=== PATIENT | male | born 1960 | race African-American/Black ===

== ENCOUNTER 2017-01-25 23:12 | Emergency (ER) | payer OTHER ==
[2017-01-25 23:21] VITALS: BP 136/72; PULSE 76; TEMP 97.6; BMI 27.4
--- NOTE | 2017-01-25 23:36 | PDOC ---
History of Present Illness - General Chief Complaint: Cold Symptoms Stated Complaint: CONGESTION Time Seen by Provider: 01/25/17 23:30 History Source: Patient Exam Limitations: No Limitations - History of Present Illness Initial Comments: 01/25/17 23:32 56yo Male patient presents to ED c/o cough and congestion x 2 days. Patient reports he also ran out of his medications. Lasix. Patient denies fever, CP, Back pain, n/v/d, diff breathing or any other complaints at this time. Timing/Duration: reports: just prior to arrival Severity: reports: mild Possible Cause: Yes: illness exposure Modifying Factors: worse with: activity, albuterol inhaler, albuterol nebulizer , antibiotics, coughing, lying down, oxygen, rest, other Associated Symptoms: denies: denies symptoms, chest pain/soreness, cough, dizziness, earache, facial pain, fever/chills, headache, lightheadedness, muscle aches, nasal congestion, nasal drainage, shortness of breath, sinus infection, sore throat, wheezing, other Aspirin Received prior to arrival: No: no aspirin today, unknown, 81 mg x 1, 81 mg x 2, 81 mg x 3, 81 mg x 4, 325 mg x 1, provided at home, provided by EMS, provided by ED ASA Contraindications(Core Measure): No: Allergy, Other, Active Blding w/i 24 hrs., Plavix, Receiving Warfarin Past History - Travel Traveled outside of the country in the last 30 days: No Close contact w/someone who was outside of country & ill: No - Past Medical History Allergies/Adverse Reactions: Allergies Allergy/AdvReac Type Severity Reaction Status Date / Time Iodinated Contrast Media - Allergy Verified 01/25/17 23:20 Oral and [Iodinated Contrast Media - IV Dye] Home Medications: Ambulatory Orders Nifedipine 30 mg PO ASDIR 03/22/14 Morphine Sulfate 15 mg PO BID 03/19/15 Furosemide [Lasix -] 60 mg PO DAILY #60 tablet 01/25/17 Oxycodone HCl/Acetaminophen [Percocet 5-325 mg Tablet] 1 tab PO Q6H PRN #16 tablet MDD 4 tabs 01/25/17 Cancer: Yes (bladder) HTN: Yes HIV: No Suicide Attempt (Hx): No - Surgical History Orthopedic Surgery: Yes (back surgery ) - Immunization History Immunization Up to Date: Yes - Psycho/Social/Smoking Cessation Hx Anxiety: No Suicidal Ideation: No Smoking History: Never smoked Have you smoked in the past 12 months: No Number of Cigarettes Smoked Daily: 2 Information on smoking cessation initiated: No 'Breaking Loose' booklet given: 03/23/14 Hx Alcohol Use: No Drug/Substance Use Hx: No Substance Use Type: None Respiratory Specific PMHX - Complaint Specific PMHX Angina: No Bronchitis: No Pneumonia: No Pulmonary Embolus: No TB (Tuberculosis): No Review of Systems - Review of Systems Able to Perform ROS?: Yes Is the patient limited Malaysian proficient: No Constitutional: No: Chills, Fever HEENTM: Yes: Nose Congestion. No: Throat Pain, Throat Swelling, Mouth Pain Respiratory: Yes: Cough. No: Orthopnea, Shortness of Breath, Stridor, Wheezing , Productive cough, Hemoptysis Cardiac (ROS): No: Chest Pain, Edema, Lightheadedness, Palpitations, Syncope, Chest Tightness ABD/GI: No: Constipated, Diarrhea, Nausea, Vomiting : No: Dysuria, Hematuria, Incontinence All Other Systems: Reviewed and Negative *Physical Exam - Vital Signs Last Vital Signs Temp Pulse Resp BP Pulse Ox 97.6 F 76 20 136/72 98 01/25/17 23:20 01/25/17 23:20 01/25/17 23:20 01/25/17 23:20 01/25/17 23:20 - Physical Exam General Appearance: Yes: Nourished, Appropriately Dressed. No: Apparent Distress, Mild Distress, Moderate Distress, Severe Distress HEENT: positive: EOMI, BOBBY, Normal ENT Inspection, Normal Voice, Symmetrical, TMs Normal, Pharynx Normal. negative: Pharyngeal Erythema, Tonsillar Exudate, Tonsillar Erythema, Nasal Congestion, Rhinorrhea, TM Bulging, TM Dull, TM Erythema Neck: positive: Trachea midline, Normal Thyroid, Supple. negative: Stridor, Lymphadenopathy (R), Lymphadenopathy (L) Respiratory/Chest: positive: Lungs Clear, Normal Breath Sounds. negative: Respiratory Distress, Accessory Muscle Use, Labored Respiration, Rapid RR Cardiovascular: positive: Regular Rhythm, Regular Rate Gastrointestinal/Abdominal: positive: Normal Bowel Sounds, Soft. negative: Distended, Guarding, Rebound, Tenderness Musculoskeletal: positive: Normal Inspection. negative: CVA Tenderness Extremity: positive: Normal Capillary Refill, Normal Inspection, Normal Range of Motion, Pedal Edema (Mild Bilateral). negative: Swelling Integumentary: positive: Normal Color, Dry, Warm Neurologic: positive: negative checker II-XII NML intact, Fully Oriented, Alert, Normal Mood/ Affect, Normal Response, Motor Strength 5/5 *DC/Admit/Observation/Transfer Diagnosis at time of Disposition: Upper respiratory infection, viral, Medication refill - Discharge Dispostion Disposition: HOME Condition at time of disposition: Good Admit: No - Prescriptions Prescriptions: Furosemide [Lasix -] 60 mg PO DAILY #60 tablet Oxycodone HCl/Acetaminophen [Percocet 5-325 mg Tablet] 1 tab PO Q6H PRN #16 tablet MDD 4 tabs PRN Reason: Severe Pain - Patient Instructions Printed Discharge Instructions: DI for Viral Upper Respiratory Infection -- Adult Additional Instructions: Follow up with your doctor as needed. Return if any concerns for further evaluation. Print Language: BOLIVIAN
== END 2017-01-25 23:49 | disposition home or self-care (01) ==
LOC: JER 23:12
DX: J06.9 Acute upper respiratory infection, unspecified (principal); B97.89 Other viral agents as the cause of diseases classified elsewhere; Z76.0 Encounter for issue of repeat prescription; I10 Essential (primary) hypertension; Z72.0 Tobacco use; Z85.51 Personal history of malignant neoplasm of bladder
CPT/HCPCS: 99281-25

== ENCOUNTER 2017-06-03 02:18 | Inpatient (IN) | payer OTHER ==
[2017-06-03] MEDS ORDERED: SODIUM CHLORIDE 0.9% 1000 ML INFUS.BAG IV ONE (02:49)
[2017-06-03 02:57] LABS: BASOPHIL 0.7 % (0-2.0); EOSINOPHIL 0.3 % (0-4.5); MCH 25.8 pg (25.7-33.7); MEAN CELL VOLUME 80.7 fl (80-96); MEAN PLT VOLUME 8.7 fl (7.5-11.1); PLATELET COUNT 269 K/MM3 (134-434); RDW 14.2 % (11.9-15.9); WHITE BLOOD COUNT 9.1 K/mm3 (4.0-10.0)
--- NOTE | 2017-06-03 03:01 | PDOC ---
Attending Attestation - Resident Resident Name: ConstantinoJose Maria celis - HPI HPI: 06/03/17 03:00 Pt comes with a seizure witnessed by his . He seized only once in the past as per pt and . Pt uses heroin and he has been in and out of rehab. He suffers with bladder cancer. He is on no seizure meds. - Physicial Exam PE: 06/03/17 03:01 agree with resident exam - Medical Decision Making 06/03/17 03:01 CT head and labs and follow with PMD, after hydration and reassessment. 06/03/17 04:04 Patient Name: Ambrosio Garcia This is a preliminary report by imaging electronic design engineer Exam: Noncontrast CT head Images: 176 Clinical indication: Seizure. Findings : Multiple axial images were obtained of the brain without contrast. There is no mass-effect, midline shift or hemorrhage. There is no intra-axial or extra- axial fluid collection. The ventricles and basilar cisterns are within normal limits. The visualized portions of the paranasal sinuses are clear. The middle ear cavities and mastoids are clear. Impression: No mass effect or intracranial hemorrhage. No acute abnormality seen. THIS DOCUMENT HAS BEEN ELECTRONICALLY SIGNED 06/03/17 04:40 We woke up patient and spoke to him regarding his bladder cancer and the fact that his head CT is normal and that he needs to stop using heroin; pt tells me that he is on a methadone program. Pt suddenly bega seizing before us. No tonic clonic activity. Just heavy breathing, spitting and looking to his left/ leftward forced gaze. Pt will be admitted for withdrawal seizures. Hospitalist team is aware of the patient.
--- NOTE | 2017-06-03 03:12 | PDOC ---
History of Present Illness - General Chief Complaint: Seizure Stated Complaint: SEIZURE Time Seen by Provider: 06/03/17 02:26 History Source: Patient Exam Limitations: No Limitations - History of Present Illness Initial Comments: 06/03/17 03:11 The patient is a 56M with a PMH of HTN, bladder ca, and heroine abuse who presents to the ED after having a witnessed seizure at home. He states that he had a previous seizure years ago as a reaction to IV dye. He is being treated for bladder ca at [facility]. He states that he was at the clinic at home, then took some medications (tylenol, ibuprofen) d/t pain in his groin and testicles that he correlates to passing a clot in his urethra. He says that he fell asleep and then his woke up to him having a seizure. He presented via EMS. All: contrast dye Soc: heroine use yesterday, methadone clinic Past History - Past Medical History Allergies/Adverse Reactions: Allergies Allergy/AdvReac Type Severity Reaction Status Date / Time Iodinated Contrast- Oral and Allergy Verified 06/03/17 22:25 IV Dye [Iodinated Contrast Media - IV Dye] Home Medications: Ambulatory Orders Nifedipine 30 mg PO DAILY 03/22/14 Methadone [Dolophine -] 60 mg PO DAILY 06/04/17 Ciprofloxacin HCl [Cipro] 500 mg PO BID #60 tablet 06/05/17 Levetiracetam [Keppra -] 250 mg PO BID #4 tablet 06/05/17 Levetiracetam [Keppra -] 500 mg PO BID #60 tablet 06/05/17 Cancer: Yes (bladder) HTN: Yes HIV: No Suicide Attempt (Hx): No - Surgical History Orthopedic Surgery: Yes (back surgery ) - Immunization History Immunization Up to Date: Yes - Psycho/Social/Smoking Cessation Hx Anxiety: No Suicidal Ideation: No Smoking History: Current some day smoker Have you smoked in the past 12 months: Yes Number of Cigarettes Smoked Daily: 3 Information on smoking cessation initiated: No 'Breaking Loose' booklet given: 03/23/14 Hx Alcohol Use: No Drug/Substance Use Hx: No Substance Use Type: None Review of Systems - Review of Systems Able to Perform ROS?: Yes Is the patient limited Hungarian proficient: No Constitutional: No: Chills, Fever Respiratory: No: Shortness of Breath Cardiac (ROS): No: Chest Pain ABD/GI: No: Constipated, Diarrhea, Nausea, Vomiting : Yes: Dysuria, Pain, Testicular Pain Neurological: No: Headache, Numbness, Tingling, Weakness Hematologic/Lymphatic: Yes: Easy Bleeding (in urine d/t bladder ca) *Physical Exam - Vital Signs Last Vital Signs Temp Pulse Resp BP Pulse Ox 98.0 F 91 H 18 140/83 94 L 06/03/17 02:26 06/03/17 02:26 06/03/17 02:26 06/03/17 02:26 06/03/17 02:26 - Physical Exam General Appearance: Yes: Nourished, Appropriately Dressed. No: Mild Distress HEENT: positive: Normal Voice, Hearing Grossly Normal Respiratory/Chest: positive: Lungs Clear, Normal Breath Sounds. negative: Respiratory Distress, Accessory Muscle Use Cardiovascular: positive: Regular Rhythm, Regular Rate, S1, S2. negative: Diastolic Murmur, Systolic Murmur Gastrointestinal/Abdominal: positive: Tender, Flat, Soft. negative: Protuberent , Distended, Guarding, Rebound Musculoskeletal: positive: CVA Tenderness (baseline) Integumentary: positive: Dry, Warm. negative: Cold, Clammy Neurologic: positive: commercial lending relationship manager II-XII NML intact, Fully Oriented, Alert, Normal Mood/ Affect, Normal Response, Motor Strength 5/5, Respond to painful stimul. negative: Facial Droop, Numbness, Sensory Deficit ED Treatment Course - LABORATORY CBC & Chemistry Diagram: 06/04/17 06:00 06/04/17 06:00 - ADDITIONAL ORDERS Additional order review: 06/03/17 01:48 RBC 3.99 L MCV 80.7 MCHC 32.0 RDW 14.2 MPV 8.7 Neutrophils % 77.0 D Lymphocytes % 13.3 D Monocytes % 8.7 Eosinophils % 0.3 D Basophils % 0.7 - RADIOLOGY Radiology Studies Ordered: Category Date Time Status HEAD CT WITHOUT CONTRAST [CT] Stat CT Scan 06/03/17 02:49 Ordered - Medications Given in the ED: ED Medications Discontinued Medications Generic Name Dose Route Start Last Admin Trade Name Freq PRN Reason Stop Dose Admin Sodium Chloride 1,000 ml 06/03/17 02:49 06/03/17 02:59 Normal Saline - IV 06/03/17 02:50 1,000 ml ONCE ONE Administration Medical Decision Making - Medical Decision Making 06/03/17 04:09 The patient is a 56M who abuses heroine and is on methadone who presents with a witnessed seizure. He was disoriented when he woke from the seizure. He states that he feels better. CT head is negative. Labs WNL. 06/03/17 04:26 Patient had witnessed seizure in ED. 2mg ativan was given. NRB was applied. Hospitalist will be paged for admission for withdrawal seizure. 06/03/17 06:00 PCP (Dr. Harper) has been called twice with no call back. Will admit to hospitalist. Dr. Love accepts admission. 06/03/17 06:01 Please contact , Leydi, when patient is upstairs [phone]. *DC/Admit/Observation/Transfer Diagnosis at time of Disposition: Withdrawal seizures Qualifiers: Complication of substance-induced condition: with unspecified complication Qualified Code(s): F19.239 - Other psychoactive substance dependence with withdrawal, unspecified - Discharge Dispostion Disposition: HOME Condition at time of disposition: Improved Admit: Yes - Prescriptions - Attestations Physician Attestion: 06/03/17 04:41 I, Dr. Jose Maria Ramirez, attest that this document has been prepared under my direction and personally reviewed by me in its entirety. I further attest, that it accurately reflects all work, treatment, procedures and medical decision -making performed by me.
[2017-06-03 03:25] LABS: ALBUMIN 3.7 g/dl (3.4-5.0); ALK PHOS 119 U/L (45-117); ANION GAP 12 (8-16); BILIRUBIN,TOTAL 0.3 mg/dL (0.2-1.0); CALCIUM 8.5 mg/dL (8.5-10.1); CO2 22 mmol/L (21-32); CREATININE 1.3 mg/dL (0.7-1.3); GLUCOSE,RANDOM 142 mg/dL (74-106); SGOT/AST 18 U/L (15-37); SGPT/ALT 22 U/L (12-78); TOT PROT 7.1 g/dl (6.4-8.2)
[2017-06-03] MEDS ORDERED: LORazepam 2 MG/ML SDV VIAL ONE (04:22)
[2017-06-03 05:19] LABS: URINE MARIJUANA THC NEGATIVE ng/ml (CUTOFF=50)
--- NOTE | 2017-06-03 06:15 | HP ---
CHIEF COMPLAINT: seizure PCP: Mario Harper-ED unable to reach PCP HISTORY OF PRESENT ILLNESS: This is a 56 year old male with a past medical history of hypertension, bladder CA and opioid abuse on methadone who presented to the ED s/p seizure. Pt's reports waking up to her seizing in bed next to her and she called the ambulance. Pt also had another seizure in the ED and was given ativan 2mg IVP. Upon exam pt sedated and unable to provide information. Information obtained from . denies any current opioid abuse but pt admitted to ED physician earlier prior to 2nd seizure that his last use of heroin was yesterday nasally. denies any recent alcohol use, stating they don't really drink much. reports that she believes her had a seizure "many years ago" prior to their marriage 7 years ago. ER course was notable for: (1) seizure activity, tx with ativan 2mg IVP Recent Travel: denies PAST MEDICAL HISTORY: HTN Bladder CA, last scraping in 2015 ?HIV, previous chart (2013) documents same but repeatedly denies any other medical problems beside HTN and bladder CA chronic neck and back pain PAST SURGICAL HISTORY: back surgery bladder tumor resection 2013 Social History: Smoking: currently smokes 2 cig/day Alcohol: denies Drugs: heroin yesterday Family History: 2 sisters with DM father many years ago mother alive and well Allergies Iodinated Contrast- Oral and IV Dye [Iodinated Contrast Media - IV Dye] Allergy (Verified 01/25/17 23:20) HOME MEDICATIONS: 3 Medication Instructions Recorded Nifedipine 30 mg PO ASDIR 03/22/14 Morphine Sulfate 15 mg PO BID 03/19/15 Furosemide [Lasix -] 60 mg PO DAILY #60 tablet 01/25/17 Oxycodone HCl/Acetaminophen 1 tab PO Q6H PRN #16 tablet MDD 4 01/28/17 [Percocet 5-325 mg Tablet] tabs REVIEW OF SYSTEMS CONSTITUTIONAL: Absent: fever, chills, diaphoresis, generalized weakness, malaise, loss of appetite, weight change HEENT: Absent: rhinorrhea, nasal congestion, throat pain, throat swelling, difficulty swallowing, mouth swelling, ear pain, eye pain, visual changes CARDIOVASCULAR: Absent: chest pain, syncope, palpitations, irregular heart rate, lightheadedness , peripheral edema RESPIRATORY: Absent: cough, shortness of breath, dyspnea with exertion, orthopnea, wheezing, stridor, hemoptysis GASTROINTESTINAL: Absent: abdominal pain, abdominal distension, nausea, vomiting, diarrhea, constipation, melena, hematochezia GENITOURINARY: Absent: dysuria, frequency, urgency, hesitancy, hematuria, flank pain, genital pain MUSCULOSKELETAL: Absent: myalgia, arthralgia, joint swelling, back pain, neck pain SKIN: Absent: rash, itching, pallor HEMATOLOGIC/IMMUNOLOGIC: Absent: easy bleeding, easy bruising, lymphadenopathy, frequent infections ENDOCRINE: Absent: unexplained weight gain, unexplained weight loss, heat intolerance, cold intolerance NEUROLOGIC: Present: seizure Absent: headache, focal weakness or paresthesias, dizziness, unsteady gait, mental status changes, bladder or bowel incontinence PSYCHIATRIC: Absent: anxiety, depression, suicidal or homicidal ideation, hallucinations. PHYSICAL EXAMINATION Vital Signs - 24 hr 3 06/03/17 06/03/17 02:26 04:28 Temperature 98.0 F Pulse Rate 91 H Pulse Rate [ 79 Radial] Respiratory 18 21 Rate Blood Pressure 140/83 Blood Pressure 153/59 [Arm] O2 Sat by Pulse 94 L 100 Oximetry (%) GENERAL: sedated, in no acute distress. HEAD: Normal with no signs of trauma. EYES: Pupils equal, round and reactive to light, 2mm, sclera anicteric, conjunctiva clear. No lid lag. EARS, NOSE, THROAT: Ears normal, nares patent, oropharynx clear without exudates. Moist mucous membranes. NECK: Normal range of motion, supple without lymphadenopathy, JVD, or masses. LUNGS: Breath sounds equal, clear to auscultation bilaterally. No wheezes, and no crackles. No accessory muscle use. HEART: Regular rate and rhythm, normal S1 and S2 without murmur, rub or gallop. ABDOMEN: Soft, nontender, not distended, normoactive bowel sounds, no guarding, no rebound, no masses. No hepatomegaly or splenomegaly. MUSCULOSKELETAL: Normal range of motion at all joints. No bony deformities or tenderness. No CVA tenderness. UPPER EXTREMITIES: 2+ pulses, warm, well-perfused. No cyanosis. No clubbing. No peripheral edema. LOWER EXTREMITIES: 2+ pulses, warm, well-perfused. No calf tenderness. No peripheral edema. NEUROLOGICAL: Cranial nerves II-XII intact. Normal speech. Normal gait. PSYCHIATRIC: Cooperative. Good eye contact. Appropriate mood and affect. SKIN: Warm, dry, normal turgor, no rashes or lesions noted, normal capillary refill. Laboratory Results - last 24 hr 3 06/03/17 06/03/17 06/03/17 01:48 01:48 04:53 WBC 9.1 RBC 3.99 L Hgb 10.3 L Hct 32.2 L MCV 80.7 MCH 25.8 MCHC 32.0 RDW 14.2 Plt Count 269 D MPV 8.7 Neutrophils % 77.0 D Lymphocytes % 13.3 D Monocytes % 8.7 Eosinophils % 0.3 D Basophils % 0.7 Sodium 136 Potassium 4.4 D Chloride 102 Carbon Dioxide 22 D Anion Gap 12 BUN 17 D Creatinine 1.3 D Creat Clearance w eGFR 57.10 Random Glucose 142 H D Calcium 8.5 Total Bilirubin 0.3 D AST 18 ALT 22 Alkaline Phosphatase 119 H Total Protein 7.1 Albumin 3.7 Opiates Screen Positive Methadone Screen Positive Barbiturate Screen Negative Phencyclidine Screen Negative Ur Amphetamines Screen Negative MDMA (Ecstasy) Screen Negative Benzodiazepines Screen Negative Cocaine Screen Negative U Marijuana (THC) Screen Negative Alcohol, Quantitative < 5.0 Radiology results: Exam: Noncontrast CT head Images: 176 Clinical indication: Seizure. Findings: Multiple axial images were obtained of the brain without contrast. There is no mass-effect, midline shift or hemorrhage. There is no intra-axial or extra-axial fluid collection. The ventricles and basilar cisterns are within normal limits. The visualized portions of the paranasal sinuses are clear. The middle ear cavities and mastoids are clear. Impression: No mass effect or intracranial hemorrhage. No acute abnormality seen. THIS DOCUMENT HAS BEEN ELECTRONICALLY SIGNED Enrique Salmeron M.D. 06/03/2017 03: 38 EST This is a preliminary report by imaging neon technician ASSESSMENT/PLAN: 56yM with PMH HTN, Bladder CA, chronic back pain presented to the ED with seizure. He is being admitted for further evaluation and treatment. Seizure - CT head without acute abnormality - monitor on telemetry - neuro consult - ? related to recent drug use Opioid abuse - dose needs to be verified, [facility] clinic, opens at 730AM, [phone] - consider detox consult with Dr. Snow HTN - cont home nifedipine Bladder CA - f/u with private urologist DVT PPX - heparin 5000u TID FEN - NS @ 75cc/hr - BMP tomorrow - low sodium diet Dsipo: Pt currently requires inpatient management of his emergent medical condition. Visit type - Emergency Visit Emergency Visit: Yes ED Registration Date: 06/03/17 Care time: The patient presented to the Emergency Department on the above date and was hospitalized for further evaluation of their emergent condition. - New Patient This patient is new to me today: Yes Date on this admission: 06/03/17 - Critical Care Critical Care patient: No
[2017-06-03] MEDS ORDERED: SODIUM CHLORIDE 1,000 ML IV SCH (07:00)
[2017-06-03] MEDS: HEPARIN NA (PORCINE) 5,000 UNITS/ML 1ML VIAL SQ SCH ×3 (08:00→21:45)
[2017-06-03 08:26] LABS: HIV 1 & 2 AB NEGATIVE; HIV 1 AGp24 NEGATIVE
[2017-06-03] MEDS ORDERED: METHADONE HCL 10 MG TABLET PO SCH (08:30)
[2017-06-03] MEDS: NIFEdipine E.R. 30 MG TABLET (FP) PO SCH (09:28)
--- NOTE | 2017-06-03 13:24 | EKG ---
Test Reason : Blood Pressure : / mmHG Vent. Rate : 085 BPM Atrial Rate : 085 BPM P-R Int : 140 ms QRS Dur : 126 ms QT Int : 416 ms P-R-T Axes : 059 -10 017 degrees QTc Int : 495 ms NORMAL SINUS RHYTHM RIGHT BUNDLE BRANCH BLOCK ABNORMAL ECG WHEN COMPARED WITH ECG OF 30-MAR-2009 10:36, RIGHT BUNDLE BRANCH BLOCK HAS REPLACED INCOMPLETE RIGHT BUNDLE BRANCH BLOCK CLINICAL CORRELATION IS RECOMMENDED Confirmed by PONCHO CASTILLO, MARIANO ([id number]) on 06/03/2017 1:23:57 PM Referred By: Confirmed By:MARIANO ISAAC MD
[2017-06-03] MEDS ORDERED: METHADONE HCL 10 MG TABLET ONE (16:32)
[2017-06-03] MEDS ORDERED: METHADONE HCL 40 MG DISPERSABLE TABLET ONE (16:33)
[2017-06-03] MEDS: METHADONE 40 MG, METHADONE 20 MG PO SCH (16:35)
[2017-06-03 22:25] VITALS: BMI 30.7
[2017-06-04] MEDS ORDERED: METHADONE HCL 40 MG DISPERSABLE TABLET ONE (05:16)
[2017-06-04] MEDS ORDERED: METHADONE HCL 10 MG TABLET ONE (05:16)
[2017-06-04] MEDS: HEPARIN NA (PORCINE) 5,000 UNITS/ML 1ML VIAL SQ SCH (05:48)
[2017-06-04] MEDS: METHADONE 40 MG, METHADONE 20 MG PO SCH (05:48)
[2017-06-04 07:39] LABS: BASOPHIL 0.9 % (0-2.0); MCH 25.4 pg (25.7-33.7); MCHC 31.5 g/dl (32.0-35.9); MEAN CELL VOLUME 80.7 fl (80-96); MEAN PLT VOLUME 8.9 fl (7.5-11.1); PLATELET COUNT 246 K/MM3 (134-434); RDW 14.2 % (11.9-15.9); WHITE BLOOD COUNT 7.9 K/mm3 (4.0-10.0)
[2017-06-04 08:08] LABS: ANION GAP 10 (8-16); CALCIUM 8.3 mg/dL (8.5-10.1); CO2 24 mmol/L (21-32); CREATININE 1.3 mg/dL (0.7-1.3); GLUCOSE,RANDOM 63 mg/dL (74-106); INR 1.15 (0.82-1.09); MAGNESIUM 2.3 mg/dL (1.8-2.4); PHOSPHOROUS 4.3 mg/dL (2.5-4.9); PROTHROMBIN TIME (PATIENT) 12.7 SEC (9.98-11.88)
--- NOTE | 2017-06-04 08:25 | PN ---
Physical Exam: SUBJECTIVE: Patient seen and examined at bedside. No further seizure activity. Had one previous seizure years ago after receiving IV contrast. Never been on seizure meds. History of bladder cancer, scheduled for another scraping next week. Urologist wanted to do PET scan but insurance would not pay for it. Patient had CT scans instead, patient states there may be "some kidney involvement" but he is not sure. Patient is HIV negative. OBJECTIVE: Vital Signs Period Temp Pulse Resp BP Sys/Hfofman Pulse Ox Last 24 Hr 98.1 F-98.6 F 63-94 12-20 104-137/48-93 95-96 GENERAL: The patient is awake, alert, and fully oriented, in no acute distress. HEAD: Normal with no signs of trauma. EYES: PERRL, extraocular movements intact, sclera anicteric, conjunctiva clear. No ptosis. ENT: Ears normal, nares patent, oropharynx clear without exudates, moist mucous membranes. NECK: Trachea midline, full range of motion, supple. LUNGS: Breath sounds equal, clear to auscultation bilaterally, no wheezes, no crackles, no accessory muscle use. HEART: Regular rate and rhythm, S1, S2 without murmur, rub or gallop. ABDOMEN: Soft, nontender, nondistended, normoactive bowel sounds, no guarding, no rebound, no hepatosplenomegaly, no masses. EXTREMITIES: 2+ pulses, warm, well-perfused, no edema. NEUROLOGICAL: Cranial nerves II through XII grossly intact. Normal speech, gait not observed. PSYCH: Normal mood, normal affect. SKIN: Warm, dry, normal turgor, no rashes or lesions noted Laboratory Results - last 24 hr 06/03/17 06/04/17 06/04/17 07:53 06:00 06:00 WBC 7.9 RBC 3.85 L Hgb 9.8 L Hct 31.1 L MCV 80.7 MCH 25.4 L MCHC 31.5 L RDW 14.2 Plt Count 246 MPV 8.9 Neutrophils % 56.0 D Lymphocytes % 30.3 D Monocytes % 10.8 H Eosinophils % 2.0 D Basophils % 0.9 INR Sodium 143 Potassium 3.9 Chloride 109 H Carbon Dioxide 24 Anion Gap 10 BUN 17 Creatinine 1.3 Random Glucose 63 L D Calcium 8.3 L Phosphorus 4.3 Magnesium 2.3 HIV 1&2 Antibody Screen Negative HIV P24 Antigen Negative 06/04/17 06:00 WBC RBC Hgb Hct MCV MCH MCHC RDW Plt Count MPV Neutrophils % Lymphocytes % Monocytes % Eosinophils % Basophils % INR 1.15 H Sodium Potassium Chloride Carbon Dioxide Anion Gap BUN Creatinine Random Glucose Calcium Phosphorus Magnesium HIV 1&2 Antibody Screen HIV P24 Antigen Active Medications Generic Name Dose Route Start Last Admin Trade Name Freq PRN Reason Stop Dose Admin Heparin Sodium (Porcine) 5,000 unit 06/03/17 06:30 06/04/17 05:48 Heparin - SQ Not Given TID LOREN Sodium Chloride 1,000 mls @ 75 mls/hr 06/03/17 07:00 06/03/17 07:30 Normal Saline - IV 75 mls/hr ASDIR LOREN Administration Methadone HCl 40 mg/ Methadone 60 mg 06/03/17 08:45 06/04/17 05:48 HCl 20 mg PO 60 mg DAILY@0600 LOREN Administration Nifedipine 30 mg 06/03/17 10:00 06/03/17 09:28 Procardia Xl - PO 30 mg DAILY LOREN Administration ASSESSMENT/PLAN 56 year-old male with a PMH of HTN, bladder cancer s/p tumor resection (2013), active heroin abuse on methadone, and current every day smoker. Admitted for seizures. Seizures --patient sniffed cocaine earlier in the day, went to bed, awoke to find patient "seizing" in bed; then with witnessed seizure in ED --treated with one dose ativan 2mg in ED, no seizure activity since admission --CT head without acute process --MRI brain without acute process --telemetry monitoring --neuro consult pending Opioid abuse --daily methadone Hypertension --BP well-controlled --continue nifedipine Bladder Cancer --per patient, recent CT imaging showed possible kidney involvement F/E/N Fluids: PO intake adequate Electrolytes: replete as indicated Nutrition: sodium controlled DVT prophylaxis: subq heparin, oob, ambulation Dispo: continues to require inpatient care. Full Code. Visit type - Emergency Visit Emergency Visit: Yes ED Registration Date: 06/03/17 Care time: The patient presented to the Emergency Department on the above date and was hospitalized for further evaluation of their emergent condition. - New Patient This patient is new to me today: No - Critical Care Critical Care patient: No
[2017-06-04 09:37] LABS: PH,URINE 5.5 (5.0-8.0); URINE APPEARANCE CLEAR; URINE BILIRUBIN 1+ (NEGATIVE); URINE BLOOD 3+ (NEGATIVE); URINE GLUCOSE (UA) NEGATIVE (NEGATIVE); URINE KETONE NEGATIVE (NEGATIVE); URINE LEUK ESTERASE NEGATIVE (NEGATIVE); URINE UROBILINOGEN 0.2 mg/dL (0.2-1.0)
[2017-06-04 10:04] LABS: URINE NITRITE POSITIVE (NEGATIVE); URINE PROTEIN 2+ (NEGATIVE)
[2017-06-04 10:08] LABS: URINE COLOR RED
[2017-06-04 10:13] LABS: URINE MUCUS RARE; URINE RBC 3660 /hpf (0-3); URINE WBC 88 /hpf (3-5)
[2017-06-04 10:19] LABS: URINE BACTERIA MODERATE /hpf (NONE SEEN)
[2017-06-04] MEDS: NIFEdipine E.R. 30 MG TABLET (FP) PO SCH (11:53)
--- NOTE | 2017-06-04 14:52 | CONSULT ---
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 H/O Heroin abuse on methadone but last used heroin yesterday. On Nifedepine and methadone. Bladder cancer is "scraped" periodically. H/o seizure more than 20 years ago, the details of which the Patient cannot recall. Pt had a witnessed seizure in his bed last night and another in the ER witnessed and described by the MD who noted Head and eye deviation to the left with spitting. Given ativan x 2 in ER. No other seizure meds. Patient denies ETOH but his told the ER they drink moderately. CT of head and MRI of brain (Both reviewed): Normal studies without focal findings. Labs sig for Hematuria and pyuria on the U/A. Tox screen sig for opiates AND methadone with BAL<.05. GAURANG: No evidence of external head trauma. No bruits. Cor Reg. NEURO: MS/Speech: Normal CN II-XII: Normal without Nystagmus. Motor: No drift or tremor. Normal strength, bulk and tone. Normal reflexes. Downgoing toes. Coord: No FTN dystaxia. Sensory: Normal. Romberg neg. Gait: Normal. Sl difficulty with Tandem. IMP: Normal neurological exam. Recurrent Focal seizures (Right frontal focus) with and without secondary generalization. May have been influenced by toxic-metabolic factors including opiate intoxication and UTI. SUGGEST: Culture urine and Rx with antibiotics if indicated. Narcotics detox/ counselling. Begin Levetiracetam 250 mg PO BID x 3 days then 500 mg PO BID. Neuro f/u as out patient and EEG. Thank you very much, Enrique Novak MD
[2017-06-04] MEDS: levETIRAcetam 250 MG TABLET (FP) PO SCH (19:04)
[2017-06-04 19:21] LABS: PH,URINE 5.5 (5.0-8.0); URINE APPEARANCE CLEAR; URINE BILIRUBIN 1+ (NEGATIVE); URINE BLOOD 3+ (NEGATIVE); URINE COLOR RED; URINE GLUCOSE (UA) NEGATIVE (NEGATIVE); URINE KETONE NEGATIVE (NEGATIVE); URINE LEUK ESTERASE NEGATIVE (NEGATIVE); URINE NITRITE NEGATIVE (NEGATIVE); URINE PROTEIN 2+ (NEGATIVE)
[2017-06-04 19:25] LABS: URINE MUCUS FEW; URINE RBC 4095 /hpf (0-3); URINE WBC 221 /hpf (3-5); YEAST MODERATE
[2017-06-04] MEDS ORDERED: ACETAMINOPHEN 500 MG TABLET (FP) PO PRN (20:34)
[2017-06-04] MEDS ORDERED: levETIRAcetam 250 MG TABLET (FP) PO SCH (22:00)
[2017-06-05] MEDS ORDERED: METHADONE HCL 10 MG TABLET ONE (05:47)
[2017-06-05] MEDS ORDERED: METHADONE HCL 40 MG DISPERSABLE TABLET ONE (05:47)
[2017-06-05] MEDS: METHADONE 40 MG, METHADONE 20 MG PO SCH (05:52)
--- NOTE | 2017-06-05 09:30 | DS ---
Physical Exam: SUBJECTIVE: Patient seen and examined at bedside. Awake, watching TV. Feels well. No seizure activity since ED. OBJECTIVE: Vital Signs Period Temp Pulse Resp BP Sys/Hoffman Pulse Ox Last 24 Hr 98.3 F-98.8 F 76-90 18-20 107-142/66-82 95 PHYSICAL EXAM GENERAL: The patient is awake, alert, and fully oriented, in no acute distress. HEAD: Normal with no signs of trauma. EYES: PERRL, extraocular movements intact, sclera anicteric, conjunctiva clear. LUNGS: Breath sounds equal, clear to auscultation bilaterally, no wheezes, no crackles, no accessory muscle use. HEART: Regular rate and rhythm, S1, S2 without murmur, rub or gallop. ABDOMEN: Soft, nontender, nondistended, normoactive bowel sounds, no guarding, no rebound, no hepatosplenomegaly, no masses. EXTREMITIES: 2+ pulses, warm, well-perfused, no edema. NEUROLOGICAL: Cranial nerves II through XII grossly intact. Normal speech, gait not observed. PSYCH: Normal mood, normal affect. SKIN: Warm, dry, normal turgor, no rashes or lesions noted. LABS Laboratory Results - last 24 hr 06/04/17 06/04/17 06/04/17 05:45 06:00 18:30 Urine Color Red Red Urine Appearance Clear Clear Urine pH 5.5 5.5 Ur Specific [place] 1.020 1.020 Urine Protein 2+ H 2+ H Urine Glucose (UA) Negative Negative Urine Ketones Negative Negative Urine Blood 3+ H 3+ H Urine Nitrite Positive Negative Urine Bilirubin 1+ H 1+ H Urine Urobilinogen 0.2 1.0 Ur Leukocyte Esterase Negative Negative Urine RBC 3660 4095 Urine WBC 88 221 Ur Epithelial Cells Rare Urine Bacteria Moderate Urine Mucus Rare Few Urine Yeast Moderate Blood Type O POSITIVE Antibody Screen Negative HOSPITAL COURSE: Date of Admission:06/03/17 Date of Discharge: 06/05/17 Pre hospital course 56 year-old male with a past medical history of hypertension, bladder CA and opioid abuse on methadone who presented to the ED s/p seizure. Pt's reports waking up to her seizing in bed next to her and she called the ambulance. Pt also had another seizure in the ED and was given ativan 2mg IVP. Upon exam pt sedated and unable to provide information. Information obtained from . denies any current opioid abuse but pt admitted to ED physician earlier prior to 2nd seizure that his last use of heroin was yesterday nasally. denies any recent alcohol use, stating they don't really drink much. reports that she believes her had a seizure "many years ago" prior to their marriage 7 years ago. ED course Seizure activity, tx with ativan 2mg IVP Subsequent hospital course by Problem List 56 year-old male with a PMH of HTN, bladder cancer s/p tumor resection (2013), active heroin abuse on methadone, and current every day smoker. Admitted for seizures. Seizures --patient sniffed cocaine earlier in the day, went to bed, awoke to find patient "seizing" in bed; then with witnessed seizure in ED --treated with one dose ativan 2mg in ED, no seizure activity since admission --CT head without acute process --MRI brain without acute process --Neuro eval: recurrent focal seizures (right frontal focus) with and without secondary generalization; may have been influenced by toxic-metabolic factors including opiate intoxication and UTI --neuro consult pending Opioid abuse --daily methadone 60mg Hypertension --BP well-controlled --continue nifedipine Bladder Cancer Hematuria UTI --serial UA with 88 and 221 WBCs respectively; culture pending --no fever, no leukocytosis --discharged on empiric Cipro --scheduled appointment with urologist Dr. Gigi Elizabeth [phone] [facility] on 06/09/17; discharge summary faxed [phone] Minutes to complete discharge: 35 Discharge Summary Reason For Visit: WITHDRAWAL Current Active Problems Withdrawal seizures (Acute) Condition: Improved - Instructions Diet, Activity, Other Instructions: Two prescriptions have been sent to your pharmacy. One is an antibiotic for your urinary tract infection. The other is an anti-seizure medication. It is important you take both medications as directed. As we discussed, you have an appointment with your urologist, Dr. Elizabeth, at [facility] on Monday. Be sure to tell Dr. Elizabeth about your hospital stay and that your are on antibiotics for a urinary tract infection. You should follow up with a neurologist for further evaluation and testing including EEG studies. Contact information is enclosed for Dr. Pfeiffer. Return to the emergency department for any new or worsening symptoms. Referrals: Parish Pfeiffer MD [Staff Physician] - 2 Weeks Disposition: HOME - Home Medications Comprehensive Discharge Medication List: Ambulatory Orders Nifedipine 30 mg PO DAILY 03/22/14 Methadone [Dolophine -] 60 mg PO DAILY 06/04/17 Ciprofloxacin HCl [Cipro] 500 mg PO BID #60 tablet 06/05/17 This patient is new to me today: No Emergency Visit: Yes ED Registration Date: 06/03/17 Care time: The patient presented to the Emergency Department on the above date and was hospitalized for further evaluation of their emergent condition. Critical Care patient: No - Discharge Referral Referred to [facility] Med P.C.: No
[2017-06-05] MEDS: NIFEdipine E.R. 30 MG TABLET (FP) PO SCH (10:00)
[2017-06-05] MEDS: levETIRAcetam 250 MG TABLET (FP) PO SCH (10:00)
--- NOTE | 2017-06-05 10:02 | PN ---
Progress Note (short form) - Note Progress Note: Neurology follow up Paitent seen by Dr. Novak over the weekend, appreciate coverage. 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 H/O Heroin abuse on methadone but last used heroin day prior to admission. On Nifedepine and methadone. Bladder cancer is "scraped" periodically. H/o seizure more than 20 years ago, the details of which the Patient could not recall. Pt had a witnessed seizure in his bed and in ER. Given ativan x 2 in ER. No other seizure meds. Patient denies ETOH but his told the ER they drink moderately. No seizures while admitted. Active Medications Acetaminophen (Tylenol -) 1,000 mg PO Q6H PRN PRN Reason: FEVER OR PAIN Last Admin: 06/04/17 20:52 Dose: 1,000 mg Heparin Sodium (Porcine) (Heparin -) 5,000 unit SQ TID [facility] Last Admin: 06/04/17 05:48 Dose: Not Given Levetiracetam (Keppra -) 250 mg PO BID [facility] Stop: 06/07/17 10:01 Last Admin: 06/04/17 19:04 Dose: 250 mg Methadone HCl 40 mg/ Methadone (HCl 20 mg) 60 mg PO DAILY@0600 [facility] Last Admin: 06/05/17 05:52 Dose: 60 mg Nifedipine (Procardia Xl -) 30 mg PO DAILY [facility] Last Admin: 06/04/17 11:53 Dose: [address] of head and MRI of brain (Both reviewed): Normal studies without focal findings. Labs sig for Hematuria and pyuria on the U/A. Tox screen sig for opiates AND methadone with BAL<.05. Last Vital Signs Temp Pulse Resp BP Pulse Ox 98.5 F 86 18 142/82 95 06/05/17 06:00 06/05/17 06:00 06/05/17 06:00 06/05/17 06:00 06/04/17 21:00 NEURO: MS/Speech: Normal CN II-XII: Normal without Nystagmus. Motor: No drift or tremor. Normal strength, bulk and tone. Normal reflexes. Downgoing toes. Coord: No FTN dystaxia. Sensory: Normal. Romberg neg. Gait: Normal. Sl difficulty with Tandem. IMP: Normal neurological exam. Recurrent Focal seizures (Right frontal focus) with and without secondary generalization. May have been influenced by toxic-metabolic factors including opiate intoxication and UTI. SUGGEST: Patient started on Keppra and can be continued until outpatient follow up EEG as outpatient Neurologically stable Drug cessation discussed Seizure precautions discussed
[2017-06-05 12:51] VITALS: BP 135/80; PULSE 80; TEMP 98
== END 2017-06-05 12:26 | disposition home or self-care (01) | DRG 53 ==
LOC: JER 02:18 → JERBED 04:59 → J4S 20:37
PROVIDERS: ADMIT Internal Medicine; ATTEND Nurse Practitioner Acute Care
DX: G40.89 Other seizures (principal); N39.0 Urinary tract infection, site not specified; F11.23 Opioid dependence with withdrawal; I10 Essential (primary) hypertension; F17.210 Nicotine dependence, cigarettes, uncomplicated; Z85.51 Personal history of malignant neoplasm of bladder
CPT/HCPCS: 36415; 70450-TC; 70551-TC; 71010-TC; 80048; 80053; 80307; 81003; 81015; 83735; 84100; 85025; 85610; 86850; 86900; 86901; 87086; 87389; 93005; 93010; 99285-25; J1644

== ENCOUNTER 2017-06-24 14:54 | Emergency (ER) | payer OTHER ==
[2017-06-24 15:02] VITALS: BP 117/83; PULSE 107; TEMP 98.2; BMI 27.8
[2017-06-24] MEDS ORDERED: diphenhydrAMINE HCL 25 MG CAPSULE (FP) PO ONE ×2 (16:24→16:27)
--- NOTE | 2017-06-24 16:28 | PDOC ---
History of Present Illness - General Chief Complaint: Rash Stated Complaint: ALLERGIC REACTION Time Seen by Provider: 06/24/17 15:49 History Source: Patient Exam Limitations: No Limitations - History of Present Illness Initial Comments: 06/24/17 16:47 This is a 56yo man with PMH seizures, HTN, bladder CA who presents today with pruritic rash to left antecubital fossa starting on 06/18. He states he was admitted for seizure in May and was discharged 06/14 on 2 new medications- Cipro and Keppra. The rash started 2 days after initiation of both medications. He denies fevers, SOB, wheezing, vocal changes, difficulty swallowing or pain at site. PMD- Meredith, Mario PMH- HTN, bladder CA, Seizures PSH- denies Pain- denies Severity: Yes: mild Location: reports: none Past History - Past Medical History Allergies/Adverse Reactions: Allergies Allergy/AdvReac Type Severity Reaction Status Date / Time Iodinated Contrast- Oral and Allergy Verified 06/24/17 14:55 IV Dye [Iodinated Contrast Media - IV Dye] Home Medications: Ambulatory Orders Nifedipine 30 mg PO DAILY 03/22/14 Methadone [Dolophine -] 60 mg PO DAILY 06/04/17 Levetiracetam [Keppra -] 250 mg PO BID #4 tablet 06/05/17 Levetiracetam [Keppra -] 500 mg PO BID #60 tablet 06/05/17 Hydrocortisone 2.5% Lotion [Hytone 2.5% Lotion -] 1 applic TP BID #1 bottle 12/09 Cancer: Yes (bladder) Disorders: Yes (kidney stones) HTN: Yes HIV: No Suicide Attempt (Hx): No - Surgical History Orthopedic Surgery: Yes (back surgery ) - Immunization History Immunization Up to Date: Yes - Psycho/Social/Smoking Cessation Hx Anxiety: No Suicidal Ideation: No Smoking History: Current some day smoker Have you smoked in the past 12 months: Yes Number of Cigarettes Smoked Daily: 3 Information on smoking cessation initiated: No 'Breaking Loose' booklet given: 03/23/14 Hx Alcohol Use: No Drug/Substance Use Hx: Yes (hx of heroin use) Substance Use Type: None Hx Substance Use Treatment: Yes (mthadone program) Review of Systems - Review of Systems Able to Perform ROS?: Yes Is the patient limited Kazakh proficient: No Constitutional: No: Symptoms Reported HEENTM: No: Symptoms Reported Respiratory: No: Symptoms reported Cardiac (ROS): No: Symptoms Reported ABD/GI: No: Symptoms Reported : No: Symptoms Reported Musculoskeletal: No: Symptoms Reported Integumentary: Yes: See HPI Neurological: No: Symptoms reported *Physical Exam - Vital Signs Last Vital Signs Temp Pulse Resp BP Pulse Ox 98.2 F 107 H 18 117/83 100 06/24/17 14:56 06/24/17 14:56 06/24/17 14:56 06/24/17 14:56 06/24/17 14:56 - Physical Exam General Appearance: Yes: Appropriately Dressed. No: Apparent Distress HEENT: positive: EOMI, BOBBY, Normal ENT Inspection Neck: positive: Trachea midline, Supple Respiratory/Chest: positive: Lungs Clear, Normal Breath Sounds. negative: Respiratory Distress Cardiovascular: positive: Regular Rhythm, Regular Rate. negative: Edema Gastrointestinal/Abdominal: positive: Normal Bowel Sounds, Soft. negative: Tender Musculoskeletal: positive: Normal Inspection. negative: CVA Tenderness Extremity: positive: Normal Capillary Refill, Normal Inspection Integumentary: positive: Rash (papular rash with discoloration to left antecubital fossa extending to shoulder and right side of face.) Neurologic: positive: business reporter II-XII NML intact, Fully Oriented, Alert, Normal Mood/ Affect Medical Decision Making - Medical Decision Making 06/24/17 17:09 A: This is a 56yo man with PMH seizures, HTN, bladder CA who presents today with pruritic rash to left antecubital fossa starting on 06/18. He states he was admitted for seizure in May and was discharged 06/14 on 2 new medications- Cipro and Keppra. The rash started 2 days after initiation of both medications. He denies fevers, SOB, wheezing, vocal changes, difficulty swallowing or pain at site. Papular pruritic rash to left AC extending over shoulder to right cheek. No drainage from rash. Placed on Cipro for UTI. Urine cx- no evidence of infection. P: Allergic rxn to medication- most likely Cipro - hydrocortisone cream. 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 *DC/Admit/Observation/Transfer Diagnosis at time of Disposition: Adverse reaction to drug Qualifiers: Encounter type: initial encounter Qualified Code(s): T88.7XXA - Unspecified adverse effect of drug or medicament, initial encounter - Discharge Dispostion Disposition: HOME Condition at time of disposition: Stable Admit: No - Prescriptions Prescriptions: Hydrocortisone 2.5% Lotion [Hytone 2.5% Lotion -] 1 applic TP BID #1 bottle - Referrals Referrals: Kamran Fernandez MD [Staff Physician] - - Patient Instructions Printed Discharge Instructions: DI for Adverse Drug Reaction -- Allergic Additional Instructions: Stop taking the ciprofloxacin. Apply hydrocortisone cream to affected areas twice daily. You have been given a referral for a new primary care doctor. Please make an appointment to follow up in the next 2 weeks. Return to the ER for increased itching, pain, fevers or any other concerns. Thank you for choosing us to provide your emergent medical needs.
== END 2017-06-24 16:37 | disposition home or self-care (01) ==
LOC: JERFT 14:54
DX: L27.0 Generalized skin eruption due to drugs and medicaments taken internally (principal); T50.995A Adverse effect of other drugs, medicaments and biological substances, initial encounter; Y92.89 Other specified places as the place of occurrence of the external cause; I10 Essential (primary) hypertension; Z86.69 Personal history of other diseases of the nervous system and sense organs; Z85.51 Personal history of malignant neoplasm of bladder
CPT/HCPCS: 99281-25

== ENCOUNTER 2017-09-14 14:50 | Emergency (ER) | payer OTHER ==
[2017-09-14 15:02] VITALS: BMI 33.2
[2017-09-14] MEDS ORDERED: morphine CARPU-JECT 4 MG/1 ML DISP.SYRIN IVPUSH ONE ×2 (15:46→18:45)
[2017-09-14] MEDS ORDERED: SODIUM CHLORIDE 1,000 ML IV STA ×2 (15:46→18:45)
--- NOTE | 2017-09-14 15:46 | PDOC ---
History of Present Illness - General History Source: Patient Exam Limitations: No Limitations - History of Present Illness Initial Comments: 09/14/17 15:50 57 year old male, with significant past medical history of kidney stones, Bladder Cancer (recent diagnosis, scheduled to start Chemo), HTN, and seizures, who presents to the emergency room today complaining a sudden onset of sharp, throbbing LLQ pain that radiates to the left back and nausea. He states that the pain is progressively worsening and feels very similar to when he had a kidney stone in the past. He reports that he was passing blood clots when urinating this morning and notes that he was recently diagnosed with bladder cancer. Denies fever, chills, vomiting. Denies diarrhea, constipation. Denies urinary frequency or hesitancy. Denies dysuria. Allergies: Iodinated contrast - oral and IV PCP: Dr. Mario Harper <Rosalia Moser - Last Filed: 09/14/17 15:51> <Diana Toscano - Last Filed: 09/16/17 08:48> - General Chief Complaint: Pain Stated Complaint: ABD PAIN Time Seen by Provider: 09/14/17 15:03 Past History <Rosalia Moser - Last Filed: 09/14/17 15:51> - Past Medical History Cancer: Yes (bladder) COPD: No Disorders: Yes (kidney stones) HTN: Yes - Surgical History Orthopedic Surgery: Yes (back surgery ) - Immunization History Immunization Up to Date: Yes - Suicide/Smoking/Psychosocial Hx Smoking History: Current every day smoker Have you smoked in the past 12 months: Yes Number of Cigarettes Smoked Daily: 10 Information on smoking cessation initiated: No 'Breaking Loose' booklet given: 03/23/14 Hx Alcohol Use: No (denies) Drug/Substance Use Hx: No (denies) Substance Use Type: None Hx Substance Use Treatment: Yes (mthadone program) <Diana Toscano - Last Filed: 09/16/17 08:48> - Past Medical History Allergies/Adverse Reactions: Allergies Allergy/AdvReac Type Severity Reaction Status Date / Time Iodinated Contrast- Oral and Allergy Verified 09/14/17 15:02 IV Dye [Iodinated Contrast Media - IV Dye] Home Medications: Ambulatory Orders Nifedipine 30 mg PO DAILY 03/22/14 Methadone [Dolophine -] 60 mg PO DAILY 06/04/17 Levetiracetam [Keppra -] 500 mg PO BID #60 tablet 06/05/17 Oxycodone HCl/Acetaminophen [Percocet 5-325 mg Tablet] 1 - 2 tab PO Q6H #20 tablet MDD 4 09/14/17 Review of Systems - Review of Systems Able to Perform ROS?: Yes Comments:: 09/14/17 15:50 GENERAL/CONSTITUTIONAL: No fever or chills. No weakness. HEAD, EYES, EARS, NOSE AND THROAT: No change in vision. No ear pain or discharge. No sore throat. GASTROINTESTINAL: +LLQ pain that radiates to the left back. +nausea. No vomiting , diarrhea or constipation. GENITOURINARY: No dysuria, frequency, or change in urination. CARDIOVASCULAR: No chest pain or shortness of breath. RESPIRATORY: No cough, wheezing, or hemoptysis. MUSCULOSKELETAL: No joint or muscle swelling or pain. No neck pain. SKIN: No rash NEUROLOGIC: No headache, vertigo, loss of consciousness, or change in strength/ sensation. ENDOCRINE: No increased thirst. No abnormal weight change. HEMATOLOGIC/LYMPHATIC: No anemia, easy bleeding, or history of blood clots. ALLERGIC/IMMUNOLOGIC: No hives or skin allergy. <Rosalia Moser - Last Filed: 09/14/17 15:51> *Physical Exam - Vital Signs Last Vital Signs Temp Pulse Resp BP Pulse Ox 98.8 F 69 17 145/92 100 09/14/17 15:00 09/14/17 15:00 09/14/17 15:00 09/14/17 15:00 09/14/17 15:00 - Physical Exam Comments: 09/14/17 15:51 GENERAL: Awake, alert, and fully oriented, in no acute distress HEAD: No signs of trauma EYES: PERRLA, EOMI, sclera anicteric, conjunctiva clear ENT: Auricles normal inspection, hearing grossly normal, nares patent, oropharynx clear without exudates. Moist mucosa NECK: Normal ROM, supple, no lymphadenopathy, JVD, or masses LUNGS: Breath sounds equal, clear to auscultation bilaterally. No wheezes, and no crackles HEART: Regular rate and rhythm, normal S1 and S2, no murmurs, rubs or gallops ABDOMEN: LLQ tenderness to palpation. Soft, normoactive bowel sounds. No guarding, no rebound. No masses EXTREMITIES: Normal range of motion, no edema. No clubbing or cyanosis. No cords, erythema, or tenderness NEUROLOGICAL: Cranial nerves II through XII grossly intact. Normal speech, normal gait SKIN: Warm, Dry, normal turgor, no rashes or lesions noted. <Rosalia Moser - Last Filed: 09/14/17 15:51> - Vital Signs Last Vital Signs Temp Pulse Resp BP Pulse Ox 98.8 F 69 17 145/92 100 09/14/17 15:00 09/14/17 15:00 09/14/17 15:00 09/14/17 15:00 09/14/17 15:00 <Diana Toscano - Last Filed: 09/16/17 08:48> ED Treatment Course - LABORATORY CBC & Chemistry Diagram: 09/14/17 15:50 09/14/17 15:50 <Diana Toscano - Last Filed: 09/16/17 08:48> Medical Decision Making - Medical Decision Making 09/14/17 19:[address] Macdonald at shift change. Awaiting CT read. <Diana Toscano - Last Filed: 09/16/17 08:48> *DC/Admit/Observation/Transfer - Attestations Scribe Attestion: 09/14/17 15:51 Documentation prepared by MARIANNE Morris, acting as neuropsychology medical consultant for Diana Toscano MD. <Rosalia Moser - Last Filed: 09/14/17 15:51> <Diana Toscano - Last Filed: 09/16/17 08:48> Diagnosis at time of Disposition: Hydronephrosis, Left flank pain - Discharge Dispostion Disposition: HOME Condition at time of disposition: Stable - Prescriptions Prescriptions: Oxycodone HCl/Acetaminophen [Percocet 5-325 mg Tablet] 1 - 2 tab PO Q6H #20 tablet MDD 4 - Referrals Referrals: Mario Harper MD [Primary Care Provider] - - Patient Instructions Printed Discharge Instructions: Hydronephrosis -- Adult Additional Instructions: Please follow up with your doctors or the doctor referred to you, Take medication as directed. - Post Discharge Activity
[2017-09-14] MEDS ORDERED: morphine SULFATE 4 MG/ML VIAL ONE ×2 (15:49→18:48)
[2017-09-14 16:00] LABS: BASOPHIL 0.5 % (0-2.0); EOSINOPHIL 0.4 % (0-4.5); MCH 24.7 pg (25.7-33.7); MCHC 30.9 g/dl (32.0-35.9); MEAN CELL VOLUME 79.9 fl (80-96); MEAN PLT VOLUME 8.8 fl (7.5-11.1); NEUTROPHILS 72.8 % (42.8-82.8); PLATELET COUNT 202 K/MM3 (134-434); RDW 22.3 % (11.9-15.9); WHITE BLOOD COUNT 8.4 K/mm3 (4.0-10.0)
[2017-09-14 16:03] LABS: URINE APPEARANCE CLOUDY; URINE BILIRUBIN NEGATIVE (NEGATIVE); URINE BLOOD 3+ (NEGATIVE); URINE COLOR AMBER; URINE GLUCOSE (UA) NEGATIVE (NEGATIVE); URINE KETONE NEGATIVE (NEGATIVE); URINE NITRITE NEGATIVE (NEGATIVE); URINE UROBILINOGEN NEGATIVE mg/dL (0.2-1.0)
[2017-09-14 16:09] LABS: URINE PROTEIN 2+ (NEGATIVE)
[2017-09-14 16:15] LABS: URINE RBC 8172 /hpf (0-3); URINE WBC 2 /hpf (3-5)
[2017-09-14 16:21] LABS: INR 1.11 (0.82-1.09); PROTHROMBIN TIME (PATIENT) 12.5 SEC (9.98-11.88)
[2017-09-14 16:35] LABS: ALBUMIN 3.5 g/dl (3.4-5.0); ALK PHOS 100 U/L (45-117); ANION GAP 7 (8-16); BILIRUBIN,TOTAL 0.2 mg/dL (0.2-1.0); CALCIUM 8.2 mg/dL (8.5-10.1); CO2 26 mmol/L (21-32); CREATININE 1.3 mg/dL (0.7-1.3); GLUCOSE,RANDOM 98 mg/dL (74-106); SGOT/AST 14 U/L (15-37); SGPT/ALT 17 U/L (12-78); TOT PROT 6.6 g/dl (6.4-8.2)
[2017-09-14 16:58] LABS: ANISOCYTOSIS 2+; MICROCYTOSIS FEW; TEAR DROP CELLS 1+
[2017-09-14 18:36] VITALS: TEMP 98.2
--- NOTE | 2017-09-14 21:05 | PDOC ---
*Physical Exam - Vital Signs Last Vital Signs Temp Pulse Resp BP Pulse Ox 98.2 F 91 H 17 132/75 98 09/14/17 18:35 09/14/17 18:35 09/14/17 18:35 09/14/17 18:35 09/14/17 18:35 ED Treatment Course - LABORATORY CBC & Chemistry Diagram: 09/14/17 15:50 09/14/17 15:50 - ADDITIONAL ORDERS Additional order review: Laboratory Results 09/14/17 09/14/17 09/14/17 15:59 15:50 15:50 PT with INR 12.50 H INR 1.11 Sodium 137 Potassium 4.4 Chloride 104 Carbon Dioxide 26 D Anion Gap 7 L BUN 14 Creatinine 1.3 Creat Clearance w eGFR 56.90 Random Glucose 98 D Calcium 8.2 L Total Bilirubin 0.2 AST 14 L ALT 17 D Alkaline Phosphatase 100 Total Protein 6.6 Albumin 3.5 Urine Color [place] Urine Appearance Cloudy Urine pH 7.0 D Ur Specific [place] 1.013 Urine Protein 2+ H Urine Glucose (UA) Negative Urine Ketones Negative Urine Blood 3+ H Urine Nitrite Negative Urine Bilirubin Negative Urine Urobilinogen Negative 09/14/17 15:50 RBC 4.07 MCV 79.9 L MCHC 30.9 L RDW 22.3 H MPV 8.8 Neutrophils % 72.8 Lymphocytes % 15.7 D Monocytes % 10.6 H D Eosinophils % 0.4 D Basophils % 0.5 - Medications Given in the ED: ED Medications Discontinued Medications Generic Name Dose Route Start Last Admin Trade Name Freq PRN Reason Stop Dose Admin Sodium Chloride 1,000 mls @ 1,000 mls/hr 09/14/17 15:46 09/14/17 15:58 Normal Saline - IV 09/14/17 16:45 1,000 mls/hr ASDIR STA Administration Sodium Chloride 1,000 mls @ 1,000 mls/hr 09/14/17 18:45 09/14/17 18:53 Normal Saline - IV 09/14/17 19:44 1,000 mls/hr ASDIR STA Administration Morphine Sulfate 4 mg 09/14/17 15:46 09/14/17 15:58 Morphine Injection - IVPUSH 09/14/17 15:47 4 mg ONCE ONE Administration Morphine Sulfate 4 mg 09/14/17 18:45 09/14/17 18:54 Morphine Injection - IVPUSH 09/14/17 18:46 4 mg ONCE ONE Administration *DC/Admit/Observation/Transfer Diagnosis at time of Disposition: Left flank pain Hydronephrosis Qualifiers: Hydronephrosis type: unspecified Qualified Code(s): N13.30 - Unspecified hydronephrosis - Discharge Dispostion Disposition: HOME Condition at time of disposition: Stable Admit: No - Referrals Referrals: Mario Harper MD [Primary Care Provider] - - Patient Instructions Printed Discharge Instructions: Hydronephrosis -- Adult Additional Instructions: Please follow up with your doctors or the doctor referred to you, Take medication as directed. - Post Discharge Activity
[2017-09-14 21:15] VITALS: BP 128/77; PULSE 72
[2017-09-14 22:21] LABS: URINE LEUK ESTERASE Negative (NEGATIVE)
== END 2017-09-14 21:14 | disposition home or self-care (01) ==
LOC: JER 14:50
PROC: 3E033NZ Introduction of Analgesics, Hypnotics, Sedatives into Peripheral Vein, Percutaneous Approach (ICD-10-PCS; principal; 2017-09-14)
DX: N13.39 Other hydronephrosis (principal); Z87.442 Personal history of urinary calculi; I10 Essential (primary) hypertension; G40.909 Epilepsy, unspecified, not intractable, without status epilepticus
CPT/HCPCS: 36415; 74176; 80053; 81003; 81015; 85025; 85610; 99284-25

== ENCOUNTER 2018-07-10 02:08 | Inpatient (IN) | payer OTHER ==
--- NOTE | 2018-07-10 03:24 | PDOC ---
History of Present Illness - General Chief Complaint: Lethargy Stated Complaint: LETHARGIC Time Seen by Provider: 07/10/18 03:24 History Source: Patient Exam Limitations: No Limitations - History of Present Illness Initial Comments: 07/10/18 05:43 Patient is a 57-year-old male with past medical history of bladder cancer, status post bladder removal 2 months ago, seizure disorder, hypertension, who presents to the emergency department today for altered mental status and increased lethargy at home. His reports that over the past week he has been eating less, unable to ambulate, and making little sense. He was supposed to see his primary care doctor today, however patient was too weak to go to the appointment. It was recommended that she call 911 and sent the patient to the emergency department. Upon arrival to the emergency department, patient A&Ox3, however patient is only answering yes or no questions. Unable to provide of any history of present illness at this time. -, Leydi Garcia Past History - Travel Traveled outside of the country in the last 30 days: No Close contact w/someone who was outside of country & ill: No - Past Medical History Allergies/Adverse Reactions: Allergies Allergy/AdvReac Type Severity Reaction Status Date / Time Iodinated Contrast- Oral and Allergy Verified 07/10/18 02:16 IV Dye [Iodinated Contrast Media - IV Dye] Home Medications: Ambulatory Orders Nifedipine 30 mg PO DAILY 03/22/14 Methadone [Dolophine -] 60 mg PO DAILY 06/04/17 levETIRAcetam [Keppra -] 500 mg PO BID #60 tablet 06/05/17 Oxycodone HCl/Acetaminophen [Percocet 5-325 mg Tablet] 1 - 2 tab PO Q6H #20 tablet MDD 4 09/14/17 Cancer: Yes (bladder) COPD: No Disorders: Yes (kidney stones) HTN: Yes - Surgical History Orthopedic Surgery: Yes (back surgery ) - Immunization History Immunization Up to Date: Yes - Suicide/Smoking/Psychosocial Hx Smoking History: Unknown if ever smoked Have you smoked in the past 12 months: No Number of Cigarettes Smoked Daily: 10 Information on smoking cessation initiated: No 'Breaking Loose' booklet given: 03/23/14 Hx Alcohol Use: No Drug/Substance Use Hx: No Substance Use Type: None Hx Substance Use Treatment: Yes (mthadone program) Review of Systems - Review of Systems Able to Perform ROS?: Yes Comments:: 07/10/18 05:37 CONSTITUTIONAL: Present: generalized weakness, malaise Absent: fever, chills, diaphoresis, loss of appetite HEENT: Absent: rhinorrhea, nasal congestion, throat pain, throat swelling, difficulty swallowing, mouth swelling, ear pain, eye pain, visual Changes CARDIOVASCULAR: Absent: chest pain, loss of consciousness, palpitations, irregular heart rate, peripheral edema RESPIRATORY: Present: cough Absent: shortness of breath, dyspnea with exertion, orthopnea, wheezing, stridor, hemoptysis GASTROINTESTINAL: Present: abdominal pain Absent: abdominal distension, nausea, vomiting, diarrhea , constipation, melena, hematochezia GENITOURINARY: Absent: dysuria, frequency, urgency, hesitancy, hematuria, flank pain, genital pain MUSCULOSKELETAL: Absent: myalgia, arthralgia, joint swelling SKIN: Absent: rash, itching, pallor HEMATOLOGIC/IMMUNOLOGIC: Absent: easy bleeding, easy bruising, lymphadenopathy, frequent infections ENDOCRINE: Absent: unexplained weight gain, unexplained weight loss, heat intolerance, cold intolerance NEUROLOGIC: Absent: headache, focal weakness or paresthesias, dizziness, unsteady gait, seizure, mental status changes, bladder or bowel incontinence PSYCHIATRIC: Absent: anxiety, depression, suicidal or homicidal ideation, hallucinations. Is the patient limited Sinhala proficient: No *Physical Exam - Vital Signs Last Vital Signs Temp Pulse Resp BP Pulse Ox 97.9 F 100 H 18 102/65 95 07/10/18 02:17 07/10/18 02:17 07/10/18 02:17 07/10/18 02:17 07/10/18 02:17 - Physical Exam Comments: 07/10/18 05:40 GENERAL: Well developed, well nourished. Awake, alert to person and place. Answering only to yes or no questions. HEENT: Normocephalic, atraumatic. PERRLA, EOMI. No conjunctival pallor. Sclera are icteric. Dry mucous membranes. Oropharynx is clear. NECK: Supple. Full ROM. No JVD. Carotid pulses 2+ and symmetric, without bruits. No thyromegaly. No lymphadenopathy. CARDIOVASCULAR: Regular rate and rhythm. No murmurs, rubs, or gallops. Distal pulses are 2+ and symmetric. PULMONARY: No evidence of respiratory distress. Lungs with expiratory crackles b/l; L worse than R. ABDOMINAL: TTP of the RUQ and epigastric region. Soft. Non-distended. No rebound or guarding. No organomegaly. Normoactive bowel sounds. MUSCULOSKELETAL Normal range of motion at all joints. No bony deformities or tenderness. No CVA tenderness. EXTREMITIES: No cyanosis. No clubbing. No edema. No calf tenderness. SKIN: Warm and dry. Normal capillary refill. No rashes. (+) jaundice. NEUROLOGICAL: Alert, awake, and altered. Unable to obtain a full Cranial nerve exam d/t AMS. No deficits to light touch and temperature in face, upper extremities and lower extremities. No motor deficits in the in face, upper extremities and lower extremities. Normoreflexic in the upper and lower extremities. speech is low and mumbled. Toes are down-going bilaterally. Gait is unobserved PSYCHIATRIC: Cooperative. Good eye contact. Appropriate mood and affect. ED Treatment Course - LABORATORY CBC & Chemistry Diagram: 07/10/18 04:27 07/10/18 04:27 Medical Decision Making - Critical Care Time Total Critical Care Time (minutes): 30 Critical Care Statement: The care of this patient involved high complexity decision making to prevent further life threatening deterioration of the patient 's condition and/or to evaluate & treat vital organ system(s) failure or risk of failure. - Medical Decision Making 07/10/18 04:27 Patient is a 57-year-old male with past medical history of bladder cancer status post resection with ileal conduit who is here with lethargy. -Patient not currently nonambulatory. This is not his baseline. -Exam with dry mucous membranes, sclerae are icteric -Lung sounds are with rhonchorous crackles bilaterally for some right. -Differential diagnosis includes pneumonia versus UTI versus renal failure versus sepsis versus abdominal pathology -Patient pending labs, hydration, chest x-ray, head and abdomen CTs -Patient will most likely require admission 07/10/18 06:29 -Lab work shows elevated total bili at 4.8, liver enzymes grossly elevated. -Leukocytosis at 12.8 no shift. -Chest x-ray with positive fluffy white patches bilaterally consistent with pneumonia Covered with vanc and Zosyn given patient had surgery 2 months ago consider Hcap. -Creatinine elevated to 2.9 from baseline of 2.4. -EKG: Normal sinus rhythm rate 97 bpm, normal intervals, normal axis, incomplete right bundle branch block, no acute ST-T wave changes. EKG is unchanged from 12/09. -Head CT is negative for acute pathology at this time. -Patient still currently pending abdominal CT -abdomen CT ordered to r/o Jazmin -Pt signed out to KADIE Green. *DC/Admit/Observation/Transfer Diagnosis at time of Disposition: Sepsis, Pneumonia, Acute renal failure - Referrals Referrals: Mario Harper MD [Primary Care Provider] - - Patient Instructions - Post Discharge Activity
[2018-07-10 04:32] LABS: URINE APPEARANCE CLEAR; URINE BILIRUBIN NEGATIVE (<2.0 mg/dL); URINE COLOR AMBER; URINE GLUCOSE (UA) NEGATIVE (NEGATIVE); URINE KETONE NEGATIVE (NEGATIVE); URINE NITRITE NEGATIVE (NEGATIVE); URINE PROTEIN NEGATIVE (NEGATIVE); URINE UROBILINOGEN 4.0 E.U/dl mg/dL (0.2-1.0)
[2018-07-10 04:34] LABS: URINE LEUK ESTERASE 2+ (NEGATIVE)
[2018-07-10 04:38] LABS: EPI CELLS RARE /HPF (FEW); URINE BACTERIA MODERATE /hpf (NONE SEEN); URINE MUCUS RARE
--- NOTE | 2018-07-10 04:42 | PDOC ---
*Physical Exam - Vital Signs Last Vital Signs Temp Pulse Resp BP Pulse Ox 97.1 F L 100 H 18 102/65 95 07/10/18 04:26 07/10/18 02:17 07/10/18 02:17 07/10/18 02:17 07/10/18 02:17 - Physical Exam HEENT: positive: Other (dry mucous membranes. jaundice. ) Neck: positive: Trachea midline Respiratory/Chest: positive: Crackles (left sided crackles), Rales Cardiovascular: positive: Regular Rhythm, Regular Rate, S1, S2 Heart Score/ECG Review #1 General ECG Interpretation: Sinus Rhythm, Normal Rate (97), Normal Intervals, No acute ischemic changes ED Treatment Course - LABORATORY CBC & Chemistry Diagram: 07/10/18 04:27 07/10/18 04:27 - ADDITIONAL ORDERS Additional order review: Laboratory Results 07/10/18 04:00 Urine Color [place] Urine Appearance Clear Urine pH 7.0 Ur Specific [place] 1.011 Urine Protein Negative Urine Glucose (UA) Negative Urine Ketones Negative Urine Blood Negative Urine Nitrite Negative Urine Bilirubin Negative Urine Urobilinogen 4.0 e.u/dl Ur Leukocyte Esterase 2+ H Medical Decision Making - Medical Decision Making 07/10/18 04:38 57-year-old male history of bladder cancer status post resection and what believes to be a ileal conduits done at [facility] here today complaining of lethargy. Patient states he has been at home with his denies any cough chest pain nausea or vomiting overall just feels very tired believes that he has an infection brewing patient states he does normally ambulate denies any change to the urine output from the ileal conduit ostomy site has had decreased by mouth intake in the last 24 hours patient is unable to provide the name of the surgeon or PCP On exam the patient has very dry mucous membranes lungs are with rhonchorous crackles bilaterally normal effort heart is regular tachycardic without any murmurs rubs or gallops abdomen is soft and nontender aid the ileal conduit site shows a pink ostomy with pink to yellowish colored urine in the bag extremities are warm and well-perfused there is nonpitting bilateral peripheral edema patient neurologically is alert and oriented 3 speech is very quiet, and he is slow to respond to many of the questions asked Differential diagnosis includes infection such as UTI or pneumonia renal failure IDV Mutchler abnormality plan CBC CMP IV hydration chest x-ray due to the severity patient's appearance will likely require admission we will try to obtain further information regarding the patient's baseline mental status and activity level from his Patient seen in examined in conjunction with CORDELL Hung agree with her assessment and plan *DC/Admit/Observation/Transfer Diagnosis at time of Disposition: Sepsis, Pneumonia, Acute renal failure - Referrals - Patient Instructions - Post Discharge Activity
[2018-07-10 04:43] LABS: VENOUS PC02 34.9 mmHg (38-52); VENOUS PH 7.29 (7.32-7.42)
[2018-07-10 04:45] LABS: BASO % 0.3 % (0-2.0); EOS % 0.6 % (0-4.5); HEMATOCRIT 27.7 % (35.4-49); HEMOGLOBIN 8.5 GM/dL (11.7-16.9); LYMPH % 51.6 % (8-40); MCH 24.3 pg (25.7-33.7); MCHC 30.7 g/dl (32.0-35.9); MEAN CELL VOLUME 79.2 fl (80-96); MEAN PLT VOLUME 8.6 fl (7.5-11.1); MONO % 9.2 % (3.8-10.2); NEUT % 38.3 % (42.8-82.8); PLATELET COUNT 338 K/MM3 (134-434); RBC 3.49 M/mm3 (4.00-5.60); RDW 16.4 % (11.9-15.9); WHITE BLOOD COUNT 12.6 K/mm3 (4.0-10.0)
[2018-07-10] MEDS ORDERED: SODIUM CHLORIDE 1,000 ML IV STA ×2 (04:51→11:09)
[2018-07-10 04:57] LABS: INR 1.52 (0.83-1.09); PROTHROMBIN TIME (PATIENT) 17.2 SEC (9.7-13.0)
[2018-07-10 05:00] LABS: ACTIVATED PTT 27.1 SECONDS (25.2-36.5)
[2018-07-10 05:06] LABS: ALBUMIN 2.2 g/dl (3.4-5.0); ALK PHOS 564 U/L (45-117); ANION GAP 8 MMOL/L (8-16); BILIRUBIN,TOTAL 4.8 mg/dL (0.2-1); BLOOD UREA NITROGEN 95 mg/dL (7-18); CALCIUM 8.4 mg/dL (8.5-10.1); CHLORIDE 109 mmol/L (98-107); CO2 19 mmol/L (21-32); CREATININE 2.9 mg/dL (0.55-1.3); GLUCOSE,RANDOM 99 mg/dL (74-106); POTASSIUM 5.8 mmol/L (3.5-5.1); SGOT/AST 262 U/L (15-37); SGPT/ALT 150 U/L (13-61); SODIUM 136 mmol/L (136-145); TOT PROT 6.6 g/dl (6.4-8.2)
[2018-07-10] MEDS ORDERED: VANCOMYCIN 1,000 MG in DEXTROSE 5%-WATER - 250 ML IVPB ONE (05:11)
[2018-07-10] MEDS ORDERED: PIPERACILLIN/TAZOB 3.375 GM 3.375 GM in DEXTROSE 5%-WATER - 50 ML IVPB ONE (05:12)
[2018-07-10] MEDS ORDERED: PIPERACILLIN/TAZOB 3.375 GM 3.375 GM/50 ML BAG IVPB ONE (05:22)
[2018-07-10] MEDS ORDERED: VANCOMYCIN 1 GRAM (PRE-DOCKED) 1,000 MG/250 ML BAG IVPB ONE (05:22)
[2018-07-10 06:00] LABS: ANISOCYTOSIS 3+; MACROCYTOSIS 1+; PLATELET ESTIMATE NORMAL
--- NOTE | 2018-07-10 08:28 | PDOC ---
*Physical Exam - Vital Signs Last Vital Signs Temp Pulse Resp BP Pulse Ox 98.8 F 92 H 18 98/61 95 07/10/18 07:11 07/10/18 07:11 07/10/18 07:11 07/10/18 07:11 07/10/18 07:11 ED Treatment Course - LABORATORY CBC & Chemistry Diagram: 07/14/18 06:00 07/13/18 07:38 - ADDITIONAL ORDERS Additional order review: Laboratory Results 07/10/18 07/10/18 07/10/18 04:27 04:27 04:27 PT with INR INR PTT (Actin FS) VBG pH POC VBG pCO2 POC VBG pO2 Mixed VBG HCO3 Sodium 136 Potassium 5.8 H Chloride 109 H Carbon Dioxide 19 L Anion Gap 8 BUN 95 H Creatinine 2.9 H Creat Clearance w eGFR 22.54 Random Glucose 99 Lactic Acid 1.9 Calcium 8.4 L Total Bilirubin 4.8 H AST 262 H ALT 150 H Alkaline Phosphatase 564 H Troponin I < 0.02 Total Protein 6.6 Albumin 2.2 L Urine Color Urine Appearance Urine pH Ur Specific [place] Urine Protein Urine Glucose (UA) Urine Ketones Urine Blood Urine Nitrite Urine Bilirubin Urine Urobilinogen Ur Leukocyte Esterase Urine WBC (Auto) Urine RBC (Auto) Ur Epithelial Cells Urine Bacteria Urine Mucus 07/10/18 07/10/18 07/10/18 04:27 04:27 04:00 PT with INR 17.20 H INR 1.52 H PTT (Actin FS) 27.1 VBG pH 7.29 L POC VBG pCO2 34.9 L POC VBG pO2 41.0 Mixed VBG HCO3 16.3 L Sodium Potassium Chloride Carbon Dioxide Anion Gap BUN Creatinine Creat Clearance w eGFR Random Glucose Lactic Acid Calcium Total Bilirubin AST ALT Alkaline Phosphatase Troponin I Total Protein Albumin Urine Color [place] Urine Appearance Clear Urine pH 7.0 Ur Specific [place] 1.011 Urine Protein Negative Urine Glucose (UA) Negative Urine Ketones Negative Urine Blood Negative Urine Nitrite Negative Urine Bilirubin Negative Urine Urobilinogen 4.0 e.u/dl Ur Leukocyte Esterase 2+ H Urine WBC (Auto) 12 Urine RBC (Auto) <1 Ur Epithelial Cells Rare Urine Bacteria Moderate Urine Mucus Rare 07/10/18 04:27 RBC 3.49 L MCV 79.2 L MCHC 30.7 L RDW 16.4 H MPV 8.6 Neutrophils % 38.3 L D Lymphocytes % 51.6 H D Monocytes % 9.2 Eosinophils % 0.6 Basophils % 0.3 - Medications Given in the ED: ED Medications Discontinued Medications Generic Name Dose Route Start Last Admin Trade Name Joanne PRN Reason Stop Dose Admin Levofloxacin 750 mg in 150 mls @ 100 mls/hr 07/10/18 04:51 07/10/18 05:11 Levaquin 750 Mg Premixed Ivpb - IVPB 07/10/18 06:20 Not Given ONCE ONE Protocol Sodium Chloride 1,000 mls @ 1,000 mls/hr 07/10/18 04:51 07/10/18 04:55 Normal Saline - IV 07/10/18 05:50 1,000 mls/hr ASDIR STA Administration Vancomycin HCl 1,000 mg/ 250 mls @ 166.667 mls/hr 07/10/18 05:11 07/10/18 05: 15 Dextrose IVPB 07/10/18 06:40 166.667 mls/hr ONCE ONE Administration Protocol Piperacillin Sod/Tazobactam 50 mls @ 100 mls/hr 07/10/18 05:12 07/10/18 05:15 Sod 3.375 gm/ Dextrose IVPB 07/10/18 05:41 100 mls/hr ONCE ONE Administration Protocol Medical Decision Making - Medical Decision Making 07/10/18 08:07 Patient received in signout from CORDELL Hung. Patient here with altered mental status lethargy. Patient was given antibiotics for pneumonia seen on chest x- ray. Patient with recent diagnosis of bladder CA with bladder resection requiring ileoconduit. Patient's chest x-ray was reviewed by radiologist and recommending a CT for new lung lesions not seen on 2017 imaging. Abdominal and pelvic CT reading pending. Will await radiologist's reading prior to ordering chest CT if needed. Patient had repeat comp and BNP added after receiving fluids. Patient's vital signs stable. 07/10/18 10:[address] shows multiple pulmonary metastasis right cardio and phrenic angle lymphadenopathy. Hepatomegaly with heterogenous liver suspicious for multiple metastases. Contrast-enhanced imaging recommended. Possible cholelithiasis. Ultrasound follow-up is recommended. No acute pathology within the abdomen or pelvis is seen. 07/10/18 10:14 Ultrasound shows contracted gallbladder without obvious calculi. Hepatomegaly with suspect diffuse hepatic metastasis is seen. call placed to [facility] for admission. 07/10/18 10:33 Spoke to hospitalist and accepted to service. The patient may be upgraded to ICU secondary to increased lethargy and borderline hypotension. *DC/Admit/Observation/Transfer Diagnosis at time of Disposition: Acute renal failure, UTI (urinary tract infection), Lethargy, Elevated LFTs, Hyperkalemia - Discharge Dispostion Decision to Admit order: Yes - Referrals - Patient Instructions - Post Discharge Activity
[2018-07-10 10:27] LABS: ANION GAP 12 MMOL/L (8-16); BLOOD UREA NITROGEN 89 mg/dL (7-18); CALCIUM 7.7 mg/dL (8.5-10.1); CHLORIDE 112 mmol/L (98-107); CO2 15 mmol/L (21-32); CREATININE 2.4 mg/dL (0.55-1.3); GLUCOSE,RANDOM 112 mg/dL (74-106); LIPASE 75 U/L (73-393); POTASSIUM 5.3 mmol/L (3.5-5.1); SGOT/AST 238 U/L (15-37); SODIUM 139 mmol/L (136-145)
[2018-07-10 10:35] LABS: ALK PHOS 534 U/L (45-117); BILIRUBIN,TOTAL 4.7 mg/dL (0.2-1); N-TERMINAL BNP 352.54 pg/ml (5-125); SGPT/ALT 140 U/L (13-61)
[2018-07-10] MEDS ORDERED: SODIUM CHLORIDE 1,000 ML IV SCH ×2 (13:00→13:07)
--- NOTE | 2018-07-10 13:02 | HP ---
Admitting History and Physical - Primary Care Physician PCP: Mario Harper S - Admission Chief Complaint: weakness lethargy change in mental status History of Present Illness: Patient is a 57-year-old male with past medical history of bladder cancer, status post bladder removal 2 months ago, seizure disorder, hypertension, who presents to the emergency department today for altered mental status and increased lethargy at home. His reports that over the past week he has been eating less, unable to ambulate, and making little sense. He was supposed to see his primary care doctor today, however patient was too weak to go to the appointment. It was recommended that she call 911 and sent the patient to the emergency department. Upon arrival to the emergency department, patient A&Ox3, however patient is only answering yes or no questions. Unable to provide of any history of present illness at this time. patient says he is not talking much and not eating much since yesterday and she was not able to understand what he was saying when he went out last night he was not able to walk up the stairs and got very weak and only wanted to stay in bed she noticed increase weakness and decrease appetite and two days ago urine was different smell and orange color on monday patient was vomitting, patient was given anti emectic at home and did help him but he stopped eating. History Source: Family Member - Past Medical History [employer]: Yes: Seizure Cardiovascular: Yes: HTN Heme/Onc: Yes: Cancer (bladder cancer), Other - Past Surgical History Past Surgical History: Yes: Ileal Conduit, Nephrectomy (s/p left nephrectomy) Additional Past Surgical History: bladder removal - Smoking History Smoking history: Unknown if ever smoked Have you smoked in the past 12 months: No Aproximately how many cigarettes per day: 10 - Alcohol/Substance Use Hx Alcohol Use: No Home Medications - Allergies Allergies/Adverse Reactions: Allergies Allergy/AdvReac Type Severity Reaction Status Date / Time Iodinated Contrast- Oral and Allergy Verified 07/10/18 02:16 IV Dye [Iodinated Contrast Media - IV Dye] - Home Medications Home Medications: Ambulatory Orders Nifedipine 30 mg PO DAILY 03/22/14 Methadone [Dolophine -] 60 mg PO DAILY 06/04/17 levETIRAcetam [Keppra -] 500 mg PO BID #60 tablet 06/05/17 Oxycodone HCl/Acetaminophen [Percocet 5-325 mg Tablet] 1 - 2 tab PO Q6H #20 tablet MDD 4 09/14/17 Docusate Sodium [Colace -] 100 mg PO DAILY 07/10/18 Pantoprazole Sodium [Protonix] 40 mg PO DAILY 07/10/18 Prochlorperazine Maleate [Compazine] 10 mg PO DAILY 07/10/18 Review of Systems Unable to obtain ROS, reason: lethargic not able to tel Physical Examination Vital Signs: Vital Signs Temperature 98.6 F 07/10/18 11:09 Pulse Rate 92 H 07/10/18 11:54 Respiratory Rate 16 07/10/18 11:54 Blood Pressure 95/51 07/10/18 11:54 O2 Sat by Pulse Oximetry (%) 95 07/10/18 11:54 Constitutional: Yes: Other (lethargic) Cardiovascular: Yes: Regular Rate and Rhythm, S1, S2 Respiratory: Yes: Diminished (on right side) Gastrointestinal: Yes: Soft, Other (ileal conduit) Neurological: Yes: Other (lethargic sleepy able to tell me his name when aroused - speaking very softly but he also talking nonsensical sentences) Labs: CBC, BMP 07/10/18 04:27 07/10/18 09:45 Imaging - Results Cat Scan: Report Reviewed (lung mets,hepatic lesions s/p left nephrectomy) Ultrasound: Report Reviewed (hepatomegaly with diffuse hepatic metastasis) Problem List - Problems (1) Change in mental status Assessment/Plan: toxic metabolic vs ? metastatic disease neuology eval neurocheck MRI brain to look for mets ct head negative awaiting cultures broad specturm abx- possible post obstructive pna chest CT without contrast ordered ivf NPO [place] eval pulm eval hold all HTN medications Code(s): R41.82 - ALTERED MENTAL STATUS, UNSPECIFIED (2) Metastasis from bladder cancer Assessment/Plan: lung mets and liver mets oncology evaluation dvt ppx Code(s): C79.9 - SECONDARY MALIGNANT NEOPLASM OF UNSPECIFIED SITE; C67.9 - MALIGNANT NEOPLASM OF BLADDER, UNSPECIFIED (3) Acute renal failure Assessment/Plan: ivf hydration renal consult Code(s): N17.9 - ACUTE KIDNEY FAILURE, UNSPECIFIED (4) Elevated LFTs Assessment/Plan: secondary to liver mets oncology and gi eval Code(s): R94.5 - ABNORMAL RESULTS OF LIVER FUNCTION STUDIES (5) Hyperkalemia Assessment/Plan: kayxelate repeat bmp Code(s): E87.5 - HYPERKALEMIA (6) Lethargy Assessment/Plan: infectious vs ? mets check mri neurology eval broad spectrum abx Code(s): R53.83 - OTHER FATIGUE
--- NOTE | 2018-07-10 14:19 | PN ---
Teaching Attending Note Name of Resident: Amber Saunders ATTENDING PHYSICIAN STATEMENT I saw and evaluated the patient. I reviewed the resident's note and discussed the case with the resident. I agree with the resident's findings and plan as documented. SUBJECTIVE: Pt seen and examined in the ER. Briefly, 57yo male with h/o HTN, seizure disorder, bladder ca s/p cystectomy with ileal conduit, left nephrectomy who presents with altered mental status and lethargy x 3 days. Pt lethargic, unable to obtain reliable history but he does endorse fevers, chills, nausea, diarrhea. Hypotensive in the ER given IVF and antibiotics. Consulted for ICU evaluation. OBJECTIVE: Vital Signs Period Temp Pulse Resp BP Sys/Hoffman Pulse Ox Last 24 Hr 91.1 F-98.8 F 72-100 15-18 84-109/38-65 93-96 Intake & Output 07/07/18 07/08/18 07/09/18 07/10/18 23:59 23:59 23:59 23:59 Intake Total 1100 Output Total 650 Balance 450 Weight 86.183 kg Gen: lethargic Heart: RRR Lung: decreased breath sounds at the bases Abd: soft, nontender Ext: no edema CBC, BMP 07/10/18 04:27 07/10/18 09:45 Active Medications Heparin Sodium (Porcine) (Heparin -) 5,000 unit SQ Q8H-IV LOREN Sodium Chloride (Normal Saline -) 1,000 mls @ 100 mls/hr IV ASDIR LOREN Last Admin: 07/10/18 13:16 Dose: 100 mls/hr ASSESSMENT AND PLAN: UTI Severe Sepsis Acute Kidney Injury Metabolic Acidosis Metastatic Bladder Ca Elevated LFTs Anemia Seizure Disorder h/o HTN - IVF resuscitation - broad spectrum antibiotics - f/u cultures - monitor urine output, creatinine - renal ultrasound - trend LFTs - ABG in AM - monitor CXR with fluid resuscitation - prognosis guarded - ICU monitoring for now critical care time spent in reviewing chart, evaluating patient and formulating plan 35 min
--- NOTE | 2018-07-10 14:22 | CONSULT ---
Consultation: REQUESTING PROVIDER: Juliann CONSULT REQUEST: We have been asked to medically evaluate this patient for AMS, lethargy, metastatic bladder CA. HISTORY OF PRESENT ILLNESS: Pt is a 57 yo M with PMH of bladder CA (s/p bladder removal and L nephrectomy 2 months ago), sz disorder, HTN, opioid/cocaine abuse (on methadone), who presents with AMS and lethargy. History is difficult to obtain, as pt is lethargic. He does admit to recent fevers/chills, nausea, vomiting, and diarrhea. Per pt , she stated to ER staff that over the past week he had decreased PO intake, has seem confused, and has been unable to ambulate (abnormal from baseline). Pt was scheduled for PCP appointment today, however pt was too weak to go to the appointment. She has provided anti-emetic at home for vomiting, but he has stopped eating over this week. Pt called 911 and he was brought to [facility] ER. *PT is full code Alcohol use none, cigarettes prior use. Uses cocaine and opiates -- currently on methadone 60 mg PO Qday REVIEW OF SYSTEMS: Difficult to obtain due to pt clinical condition/lethargy +fever/chills (subjective) +nausea/vomiting +diarrhea -chest pain/SOB -syncope PHYSICAL EXAMINATION Vital Signs - 24 hr 07/10/18 07/10/18 07/10/18 02:17 03:30 04:26 Temperature 97.9 F 97.1 F L 97.1 F L Pulse Rate 100 H 94 H Pulse Rate [ Right Radial] Respiratory 18 16 Rate Blood Pressure 102/65 102/65 Blood Pressure [Left Arm] O2 Sat by Pulse 95 95 Oximetry (%) 07/10/18 07/10/18 07/10/18 05:33 07:11 09:51 Temperature 91.1 F L 98.8 F Pulse Rate Pulse Rate [ 95 H 92 H 94 H Right Radial] Respiratory 15 18 18 Rate Blood Pressure Blood Pressure 103/58 98/61 98/64 [Left Arm] O2 Sat by Pulse 96 95 93 L Oximetry (%) 07/10/18 07/10/18 07/10/18 11:09 11:54 12:58 Temperature 98.6 F 97.7 F Pulse Rate Pulse Rate [ 72 92 H 94 H Right Radial] Respiratory 16 16 16 Rate Blood Pressure Blood Pressure 84/38 95/51 109/60 [Left Arm] O2 Sat by Pulse 96 95 94 L Oximetry (%) 07/10/18 13:59 Temperature 97.7 F Pulse Rate Pulse Rate [ 97 H Right Radial] Respiratory 18 Rate Blood Pressure Blood Pressure 99/57 [Left Arm] O2 Sat by Pulse 94 L Oximetry (%) GENERAL: Pt opens eyes spontaneously. Able to answer with "yes/no" to questions , but is very lethargic. HEAD: Normal with no signs of trauma. No tenderness to palpation. EYES: Extraocular movements intact, sclera anicteric, conjunctiva clear. No lid lag. EARS, NOSE, THROAT: External ears normal, nares patent, oropharynx clear without exudates. Dry oral mucous membranes. NECK: Normal range of motion, supple without lymphadenopathy, no visible JVD, or masses. LUNGS: Breath sounds diminished at bases L>R. No wheezes, and no crackles. No accessory muscle use. HEART: Regular rate and rhythm, normal S1 and S2 without murmur, rub or gallop. ABDOMEN: Tender to palpation LLQ of abdomen. Moderately distended abdomen. Suprapubic drain present with red-tinged urine, no erythema surrounding drain site. Normoactive bowel sounds, no guarding, no rebound, no masses. No hepatomegaly or splenomegaly. MUSCULOSKELETAL: Normal range of motion at all joints. No bony deformities or tenderness. Decreased strength in arms and legs. UPPER EXTREMITIES: 2+ pulses, warm, well-perfused. No cyanosis. No clubbing. Cap refill <2 seconds. No peripheral pitting edema. LOWER EXTREMITIES: 2+ pulses, warm, well-perfused. No calf tenderness. No peripheral edema. NEUROLOGICAL: staffing and scheduling coordinator difficult to evaluate, as pt very lethargic. Able to move all extremities, but weak. Gait not examined. PSYCHIATRIC: Cooperative. Good eye contact. Pt lethargic and would close eyes during questioning. SKIN: Warm, dry, normal turgor, no rashes or lesions noted. Laboratory Results - last 24 hr 07/10/18 07/10/18 07/10/18 04:00 04:27 04:27 WBC 12.6 H RBC 3.49 L Hgb 8.5 L Hct 27.7 L MCV 79.2 L MCH 24.3 L MCHC 30.7 L RDW 16.4 H Plt Count 338 MPV 8.6 Absolute Neuts (auto) 4.8 Neutrophils % 38.3 L D Neutrophils % (Manual) 74.7 Band Neutrophils % 3.0 Lymphocytes % 51.6 H D Lymphocytes % (Manual) 11.1 Monocytes % 9.2 Monocytes % (Manual) 5 Eosinophils % 0.6 Eosinophils % (Manual) 0.0 Basophils % 0.3 Basophils % (Manual) 5.1 H* Myelocytes % (Man) 0 Promyelocytes % (Man) 0 Blast Cells % (Manual) 0 Nucleated RBC % 0 Metamyelocytes 1 Hypochromia 2+ Platelet Estimate Normal Polychromasia 0 Poikilocytosis 2+ Anisocytosis 3+ Microcytosis 3+ Macrocytosis 1+ PT with INR 17.20 H INR 1.52 H PTT (Actin FS) 27.1 VBG pH POC VBG pCO2 POC VBG pO2 Mixed VBG HCO3 Sodium Potassium Chloride Carbon Dioxide Anion Gap BUN Creatinine Creat Clearance w eGFR Random Glucose Lactic Acid Calcium Total Bilirubin AST ALT Alkaline Phosphatase Creatine Kinase Creatine Kinase Index CK-MB (CK-2) Troponin I B-Natriuretic Peptide Total Protein Albumin Lipase Urine Color [place] Urine Appearance Clear Urine pH 7.0 Ur Specific [place] 1.011 Urine Protein Negative Urine Glucose (UA) Negative Urine Ketones Negative Urine Blood Negative Urine Nitrite Negative Urine Bilirubin Negative Urine Urobilinogen 4.0 e.u/dl Ur Leukocyte Esterase 2+ H Urine WBC (Auto) 12 Urine RBC (Auto) <1 Ur Epithelial Cells Rare Urine Bacteria Moderate Urine Mucus Rare 07/10/18 07/10/18 07/10/18 04:27 04:27 04:27 WBC RBC Hgb Hct MCV MCH MCHC RDW Plt Count MPV Absolute Neuts (auto) Neutrophils % Neutrophils % (Manual) Band Neutrophils % Lymphocytes % Lymphocytes % (Manual) Monocytes % Monocytes % (Manual) Eosinophils % Eosinophils % (Manual) Basophils % Basophils % (Manual) Myelocytes % (Man) Promyelocytes % (Man) Blast Cells % (Manual) Nucleated RBC % Metamyelocytes Hypochromia Platelet Estimate Polychromasia Poikilocytosis Anisocytosis Microcytosis Macrocytosis PT with INR INR PTT (Actin FS) VBG pH 7.29 L POC VBG pCO2 34.9 L POC VBG pO2 41.0 Mixed VBG HCO3 16.3 L Sodium 136 Potassium 5.8 H Chloride 109 H Carbon Dioxide 19 L Anion Gap 8 BUN 95 H Creatinine 2.9 H Creat Clearance w eGFR 22.54 Random Glucose 99 Lactic Acid 1.9 Calcium 8.4 L Total Bilirubin 4.8 H AST 262 H ALT 150 H Alkaline Phosphatase 564 H Creatine Kinase Creatine Kinase Index CK-MB (CK-2) Troponin I B-Natriuretic Peptide Total Protein 6.6 Albumin 2.2 L Lipase Urine Color Urine Appearance Urine pH Ur Specific [place] Urine Protein Urine Glucose (UA) Urine Ketones Urine Blood Urine Nitrite Urine Bilirubin Urine Urobilinogen Ur Leukocyte Esterase Urine WBC (Auto) Urine RBC (Auto) Ur Epithelial Cells Urine Bacteria Urine Mucus 07/10/18 07/10/18 07/10/18 04:27 09:45 09:45 WBC RBC Hgb Hct MCV MCH MCHC RDW Plt Count MPV Absolute Neuts (auto) Neutrophils % Neutrophils % (Manual) Band Neutrophils % Lymphocytes % Lymphocytes % (Manual) Monocytes % Monocytes % (Manual) Eosinophils % Eosinophils % (Manual) Basophils % Basophils % (Manual) Myelocytes % (Man) Promyelocytes % (Man) Blast Cells % (Manual) Nucleated RBC % Metamyelocytes Hypochromia Platelet Estimate Polychromasia Poikilocytosis Anisocytosis Microcytosis Macrocytosis PT with INR INR PTT (Actin FS) VBG pH POC VBG pCO2 POC VBG pO2 Mixed VBG HCO3 Sodium 139 Potassium 5.3 H Chloride 112 H Carbon Dioxide 15 L Anion Gap 12 BUN 89 H Creatinine 2.4 H Creat Clearance w eGFR 28.04 Random Glucose 112 H Lactic Acid 2.0 Calcium 7.7 L Total Bilirubin 4.7 H AST 238 H ALT 140 H Alkaline Phosphatase 534 H Creatine Kinase 181 Creatine Kinase Index 0.5 CK-MB (CK-2) 1.05 Troponin I < 0.02 < 0.02 B-Natriuretic Peptide 352.54 H Total Protein 6.0 L Albumin 2.0 L Lipase 75 Urine Color Urine Appearance Urine pH Ur Specific [place] Urine Protein Urine Glucose (UA) Urine Ketones Urine Blood Urine Nitrite Urine Bilirubin Urine Urobilinogen Ur Leukocyte Esterase Urine WBC (Auto) Urine RBC (Auto) Ur Epithelial Cells Urine Bacteria Urine Mucus 07/10/18 12:40 WBC RBC Hgb Hct MCV MCH MCHC RDW Plt Count MPV Absolute Neuts (auto) Neutrophils % Neutrophils % (Manual) Band Neutrophils % Lymphocytes % Lymphocytes % (Manual) Monocytes % Monocytes % (Manual) Eosinophils % Eosinophils % (Manual) Basophils % Basophils % (Manual) Myelocytes % (Man) Promyelocytes % (Man) Blast Cells % (Manual) Nucleated RBC % Metamyelocytes Hypochromia Platelet Estimate Polychromasia Poikilocytosis Anisocytosis Microcytosis Macrocytosis PT with INR INR PTT (Actin FS) VBG pH POC VBG pCO2 POC VBG pO2 Mixed VBG HCO3 Sodium Potassium Chloride Carbon Dioxide Anion Gap BUN Creatinine Creat Clearance w eGFR Random Glucose Lactic Acid Calcium Total Bilirubin AST ALT Alkaline Phosphatase Creatine Kinase 173 Creatine Kinase Index 0.6 CK-MB (CK-2) 1.09 Troponin I < 0.02 B-Natriuretic Peptide Total Protein Albumin Lipase Urine Color Urine Appearance Urine pH Ur Specific [place] Urine Protein Urine Glucose (UA) Urine Ketones Urine Blood Urine Nitrite Urine Bilirubin Urine Urobilinogen Ur Leukocyte Esterase Urine WBC (Auto) Urine RBC (Auto) Ur Epithelial Cells Urine Bacteria Urine Mucus Active Medications Generic Name Dose Route Start Last Admin Trade Name Freq PRN Reason Stop Dose Admin Heparin Sodium (Porcine) 5,000 unit 07/10/18 18:00 Heparin - SQ Q8H-IV LOREN Sodium Chloride 1,000 mls @ 100 mls/hr 07/10/18 13:07 07/10/18 13:16 Normal Saline - IV 100 mls/hr ASDIR LOREN Administration ASSESSMENT/PLAN: Pt is a 57 yo M, with PMH of bladder CA s/p bladder removal 2 months ago with L nephrectomy, sz disorder, HTN, opioid/cocaine use (on methadone), who presents with AMS and decreased PO intake likely 2/2 to sepsis vs hepatic encephalopathy. 1. AMS -Continue Keppra 500 mg PO BID, as sz have been well-controlled; Keppra level ordered -Ordered B12 level/TSH - ordered Thiamine 200 mg IVPB TID x3 days per Dr. Novak. -Utox showed positive opiates/methadone (expected) -Head CT negative -Lactulose 20 mg BID ordered per Dr. Reed -Substance use disorder -- will hold methadone 60 mg PO Qday until pt mental status improves 2. CVS -Will hold nefidipine 30 mg PO Qday as pt BP low -Continue to monitor for hypotension -Prior stress test (January 2018) showed normal LV function, EF 72% -ECG showed NSR, incomplete RBBB, unchanged from ECG of Nov 2016 3. Pulm -Chest x-ray showed b/l consolidations (likely metastasis) -Provide O2 supplementation as necessary 4. Renal/ -suprapubic drain intact, no erythema around drain site, continue to monitor output -BUN/Cr down-trending (likely DIVINA) -- 95/2.9 -> 89/2.4 -Renal US ordered - pending; r/o obstructive process 5. GI/Hepatic -CT abd/pelvis: multiple pulmonary metastases, R cardiophrenic LAD, liver metastasis, L nephrectomy + cystectomy, RLQ ileal conduit, possible cholecystitis, no acute pathology -F/u abdominal US limited due to pt clinical status -- showed contracted GB - no visible calculi -LFTs downtrending (AST 262, ALT 150, ALKP 564 -> AST 238, ALT 140, ALKP 534) -100 Colace PO Qday, Protonix 40 mg IV Qday, and Compazine 10 mg PO Qday for bowel regimen, and nausea -Ordered amylase and lipase levels for tomorrow, r/o madhav 6. ID -Dr. Davis following - continue Zosyn 2.25 g Q6hr -1g Vanc and 3.375 g Zosyn provided in ER -Blood and urine cultures pending -UA showed 2+ leuk esterase, WBC 12 7. FEN/Diet -Continue to monitor electrolytes and replete as needed -NPO for now until mental status improves -Pt on NaCl IVF per sepsis protocol; already received 2L -- no signs of fluid overload on PE 8. Prophylaxis -Heparin 5000 units TID -SCDs Dispo: We will continue to follow the patient in the ICU. Problem List - Problems (1) Acute renal failure Code(s): N17.9 - ACUTE KIDNEY FAILURE, UNSPECIFIED (2) Change in mental status Code(s): R41.82 - ALTERED MENTAL STATUS, UNSPECIFIED (3) Elevated LFTs Code(s): R94.5 - ABNORMAL RESULTS OF LIVER FUNCTION STUDIES (4) Hyperkalemia Code(s): E87.5 - HYPERKALEMIA (5) Hypotension Code(s): I95.9 - HYPOTENSION, UNSPECIFIED (6) Lethargy Code(s): R53.83 - OTHER FATIGUE (7) Metastasis from bladder cancer Code(s): C79.9 - SECONDARY MALIGNANT NEOPLASM OF UNSPECIFIED SITE; C67.9 - MALIGNANT NEOPLASM OF BLADDER, UNSPECIFIED Visit type - Emergency Visit Emergency Visit: Yes ED Registration Date: 07/10/18 Care time: The patient presented to the Emergency Department on the above date and was hospitalized for further evaluation of their emergent condition. - New Patient This patient is new to me today: Yes Date on this admission: 07/10/18 - Critical Care Critical Care patient: Yes Total Critical Care Time (in minutes): 45 Critical Care Statement: The care of this patient involved high complexity decision making to prevent further life threatening deterioration of the patient 's condition and/or to evaluate & treat vital organ system(s) failure or risk of failure.
--- NOTE | 2018-07-10 14:34 | CON.GI ---
Consult Consult Specialty:: GI: For Dr. Kwan Referred by:: Dr. Carr Reason for Consultation:: Abnormal LFTs - History of Present Illness Chief Complaint: Patient does not give a CC History of Present Illness: History per chart as patient appears confused and does not give a history: Patient is a 57-year-old male with past medical history of bladder cancer, status post cystectomy and ? left nephrectomy removal 2 months ago, seizure disorder, hypertension, who presents to the emergency department today for altered mental status and increased lethargy at home. His reported to the ER that over the past week he has been eating less, unable to ambulate, and making little sense. He was supposed to see his primary care doctor today, however patient was too weak to go to the appointment. It was recommended that she call 911 and sent the patient to the emergency department. Upon arrival to the emergency department, patient A&Ox3, however patient is only answering yes or no questions. Unable to provide of any history of present illness at this time. patient stated he was not talking much and not eating much since yesterday and she was not able to understand what he was saying when he went out last night he was not able to walk up the stairs and got very weak and only wanted to stay in bed. She noticed increase weakness and decrease appetite and two days ago urine was different smell and orange color. On Monday, the patient was vomitting, patient was given anti emectic at home and did help him but he stopped eating. Asked to evaluate abnormal LFTS. In ER, work-up included imaging including abdomina US that revealed multiple liver mets, a non-dilated biliary tract and no gallstones. CT scan of the abdomen without contrast revealed findings c/w multiple liver mets. It is unclear if he has a known history of metastatic disease. 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 bladder cancer s/p cystectomy) - Past Surgical History Past Surgical History: Yes: Ileal Conduit, Nephrectomy (s/p left nephrectomy) - Alcohol/Substance Use Hx Alcohol Use: No - Smoking History Smoking history: Unknown if ever smoked Have you smoked in the past 12 months: No Aproximately how many cigarettes per day: 10 - Social History Usual Living Arrangement: With Spouse Place of : [facility] History of Recent Travel: No Home Medications - Allergies Allergies/Adverse Reactions: Allergies Allergy/AdvReac Type Severity Reaction Status Date / Time Iodinated Contrast- Oral and Allergy Verified 07/10/18 02:16 IV Dye [Iodinated Contrast Media - IV Dye] - Home Medications Home Medications: Ambulatory Orders Nifedipine 30 mg PO DAILY 03/22/14 Methadone [Dolophine -] 60 mg PO DAILY 06/04/17 levETIRAcetam [Keppra -] 500 mg PO BID #60 tablet 06/05/17 Oxycodone HCl/Acetaminophen [Percocet 5-325 mg Tablet] 1 - 2 tab PO Q6H #20 tablet MDD 4 09/14/17 Docusate Sodium [Colace -] 100 mg PO DAILY 07/10/18 Pantoprazole Sodium [Protonix] 40 mg PO DAILY 07/10/18 Prochlorperazine Maleate [Compazine] 10 mg PO DAILY 07/10/18 Family Disease History - Family Disease History Family History: Unable to Obtain (patient not giving history) Review of Systems Unable to obtain ROS, reason: patient not giving ROS Physical Exam-GI Vital Signs: Vital Signs Temperature 98.7 F 07/10/18 13:59 Pulse Rate 99 H 07/10/18 13:59 Respiratory Rate 18 07/10/18 13:59 Blood Pressure 89/58 07/10/18 13:59 O2 Sat by Pulse Oximetry (%) 93% on RA 07/10/18 13:59 Constitutional: Yes: Calm Eyes: Yes: Sclera Icterus Cardiovascular: Yes: Regular Rate and Rhythm Respiratory: Yes: Diminished (at bases however poor insp effort) Gastrointestinal Inspection: Yes: Other (+ Ileal conduit in Right lower abdomen) ...Auscultate: Yes: Normoactive Bowel Sounds ...Palpate: Yes: Soft, Tenderness (TTP RUQ > LUQ, LLQ) ...Percussion: No: Tympanitic Edema: No (No LE edema) Neurological: Yes: Other (Awake) Labs: CBC, BMP 07/10/18 04:27 07/10/18 09:45 INR, PTT INR 1.52 (0.83-1.09) H 07/10/18 04:27 Hepatic Panel Total Bilirubin 4.7 mg/dL (0.2-1) H 07/10/18 09:45 AST 238 U/L (15-37) H 07/10/18 09:45 ALT 140 U/L (13-61) H 07/10/18 09:45 Alkaline Phosphatase 534 U/L (45-117) H 07/10/18 09:45 Albumin 2.0 g/dl (3.4-5.0) L 07/10/18 09:45 Problem List - Problems (1) Elevated LFTs Assessment/Plan: Non dilated biliary tract noted on current imaging. Suspect secondary to liver metastases with liver decomprensation He has significant metastatic disease. ? if this is known Advise: MRCP when able Ammonia level Add Lactulose 20g PO BID Contact onclogoist and obtain more information about underlying disease and plan for treatment ? goals of care Code(s): R94.5 - ABNORMAL RESULTS OF LIVER FUNCTION STUDIES
[2018-07-10] MEDS ORDERED: oxyCODONE HCL 5 MG TABLET PO PRN (15:21)
[2018-07-10] MEDS ORDERED: ACETAMINOPHEN 325 MG TABLET (FP) PO PRN (15:21)
--- NOTE | 2018-07-10 15:25 | CONSULT ---
Consult Consult Specialty:: Nephrology Reason for Consultation:: DIVINA and hyperkalemia - History of Present Illness Chief Complaint: lethargy History of Present Illness: Pt is a 57 year old male with pmhx of bladder cancer, metastatic disease, epilepsy, and HTN who presents to the ER with altered mental status. He is arousable but giving poor history. He has been eating less and his found him to be altered. He was found to be in renal failure and was found to be hyperkalemic. He says that his appetite has been poor and that he has been sleeping most of the days. He denies shortness of breath. He says "I feel dehydrated." He is making urine. 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 bladder cancer s/p cystectomy) - Past Surgical History Past Surgical History: Yes: Ileal Conduit, Nephrectomy (s/p left nephrectomy) - Alcohol/Substance Use Hx Alcohol Use: No - Smoking History Smoking history: Unknown if ever smoked Have you smoked in the past 12 months: No Aproximately how many cigarettes per day: 10 - Social History Usual Living Arrangement: With Spouse History of Recent Travel: No Home Medications - Allergies Allergies/Adverse Reactions: Allergies Allergy/AdvReac Type Severity Reaction Status Date / Time Iodinated Contrast- Oral and Allergy Verified 07/10/18 02:16 IV Dye [Iodinated Contrast Media - IV Dye] - Home Medications Home Medications: Ambulatory Orders Nifedipine 30 mg PO DAILY 03/22/14 Methadone [Dolophine -] 60 mg PO DAILY 06/04/17 levETIRAcetam [Keppra -] 500 mg PO BID #60 tablet 06/05/17 Oxycodone HCl/Acetaminophen [Percocet 5-325 mg Tablet] 1 - 2 tab PO Q6H #20 tablet MDD 4 09/14/17 Docusate Sodium [Colace -] 100 mg PO DAILY 07/10/18 Pantoprazole Sodium [Protonix] 40 mg PO DAILY 07/10/18 Prochlorperazine Maleate [Compazine] 10 mg PO DAILY 07/10/18 Family Disease History - Family Disease History Family History: Unable to Obtain Review of Systems - Review of Systems Constitutional: reports: Malaise. denies: Chills, Fever Eyes: reports: No Symptoms HENT: reports: No Symptoms Neck: reports: No Symptoms Cardiovascular: reports: No Symptoms Respiratory: reports: No Symptoms Gastrointestinal: reports: No Symptoms Genitourinary: reports: Other (darker urine) Musculoskeletal: reports: Muscle Weakness Neurological: reports: Change in LOC Endocrine: reports: No Symptoms Psychiatric: reports: No Symptoms Physical Exam Vital Signs: Vital Signs Temperature 97.7 F 07/10/18 13:59 Pulse Rate 97 H 07/10/18 13:59 Respiratory Rate 18 07/10/18 13:59 Blood Pressure 99/57 07/10/18 13:59 O2 Sat by Pulse Oximetry (%) 94 L 07/10/18 13:59 Constitutional: Yes: Calm Eyes: Yes: Conjunctiva Clear HENT: Yes: Atraumatic Neck: Yes: Supple Cardiovascular: Yes: S1, S2 Respiratory: Yes: CTA Bilaterally Gastrointestinal: Yes: Soft Renal/: Yes: Other (ileal conduit) Musculoskeletal: Yes: Muscle Weakness Edema: No Neurological: Yes: Lethargy Labs: CBC, BMP 07/10/18 04:27 07/10/18 09:45 Laboratory Tests 08/30/17 09/14/17 03/20/18 03:35 15:50 10:30 WBC Hgb Sodium Potassium 5.6 H D Chloride Carbon Dioxide BUN Creatinine 1.4 H 1.3 2.4 H D Urine Protein Urine Blood Opiates Screen Methadone Screen 07/10/18 07/10/18 07/10/18 04:00 04:27 04:27 WBC 12.6 H Hgb 8.5 L Sodium 136 Potassium 5.8 H Chloride Carbon Dioxide BUN 95 H Creatinine 2.9 H Urine Protein Negative Urine Blood Negative Opiates Screen Methadone Screen 07/10/18 07/10/18 09:45 16:10 WBC Hgb Sodium 139 Potassium 5.3 H Chloride 112 H Carbon Dioxide 15 L BUN 89 H Creatinine 2.4 H Urine Protein Urine Blood Opiates Screen Positive A* Methadone Screen Positive A* Imaging - Results Chest X-ray: Report Reviewed Cat Scan: Report Reviewed Ultrasound: Report Reviewed Problem List - Problems (1) Acute renal failure Code(s): N17.9 - ACUTE KIDNEY FAILURE, UNSPECIFIED (2) Change in mental status Code(s): R41.82 - ALTERED MENTAL STATUS, UNSPECIFIED (3) Hyperkalemia Code(s): E87.5 - HYPERKALEMIA (4) Hypotension Code(s): I95.9 - HYPOTENSION, UNSPECIFIED (5) Lethargy Code(s): R53.83 - OTHER FATIGUE Assessment/Plan Current Medications Generic Name Dose Route Start Last Admin Trade Name Freq PRN Reason Stop Dose Admin Acetaminophen 650 mg 07/10/18 15:21 Tylenol - PO Q6H PRN PAIN 6-10 Docusate Sodium 100 mg 07/11/18 10:00 Colace - PO DAILY LOREN Heparin Sodium (Porcine) 5,000 unit 07/10/18 22:00 Heparin - SQ TID LOREN Sodium Chloride 1,000 mls @ 100 mls/hr 07/10/18 13:07 07/10/18 13:16 Normal Saline - IV 100 mls/hr ASDIR LOREN Administration Piperacillin Sod/Tazobactam 50 mls @ 100 mls/hr 07/10/18 17:15 07/10/18 17:32 Sod 2.25 gm/ Dextrose IVPB 100 mls/hr Q6H-IV LOREN Administration Protocol Lactulose 20 gm 07/10/18 14:45 07/10/18 15:47 Cephulac (Oral Use) PO 20 gm BID LOREN Administration Levetiracetam 500 mg 07/10/18 22:00 Keppra - PO BID LOREN Oxycodone HCl 10 mg 07/10/18 15:21 Roxicodone - PO Q6H PRN PAIN 6-10 Pantoprazole Sodium 40 mg 07/11/18 10:00 Protonix Iv IVPUSH DAILY LOREN Prochlorperazine Maleate 10 mg 07/11/18 10:00 Compazine - PO DAILY LOREN Thiamine HCl 200 mg 07/10/18 18:00 07/10/18 18:08 Vitamin B1 Injection - IVPB 200 mg TID LOREN Administration Impression 1. DIVINA 2. CKD 3. bladder cancer 4. hx left nephrectomy 5. hypotension 6. altered mental status 7. metastatic disease 8. hyperkalemia improving 9. hx of htn although pt now hypotensive 10. hypotension 11. anemia 12. sepsis 13. epilepsy Plan - renal function is improving with fluids - potassium is trending down - pt is making urine - hold bp meds - cont with saline - reviewed reports, pt has metastatic disease - oncology eval - avoid nsaids - abx per ID - follow blood and urine cultures - check urine lytes - discussed with attending - will follow pt Dr Valdez
[2018-07-10] MEDS: LACTULOSE 20 GM/30 ML UDC (FOR ORAL USE ONLY) PO SCH ×2 (15:47→22:00)
--- NOTE | 2018-07-10 16:18 | EKG ---
Test Reason : Blood Pressure : / mmHG Vent. Rate : 097 BPM Atrial Rate : 097 BPM P-R Int : 130 ms QRS Dur : 108 ms QT Int : 386 ms P-R-T Axes : 064 023 033 degrees QTc Int : 490 ms NORMAL SINUS RHYTHM INCOMPLETE RIGHT BUNDLE BRANCH BLOCK T WAVE ABNORMALITY, CONSIDER ANTERIOR ISCHEMIA ABNORMAL ECG WHEN COMPARED WITH ECG OF 30-AUG-2017 03:32, NO SIGNIFICANT CHANGE WAS FOUND Confirmed by Aurelio Miles ([id number]) on 07/10/2018 4:18:12 PM Referred By: Confirmed By:Aurelio Miles
--- NOTE | 2018-07-10 16:27 | CONSULT ---
Consult - text type - Consultation Consultation Note: NEUROLOGY CONSULTATION is greatly appreciated: This 57 yo RH man is s/p Cystectomy, Left nephrectomy and illial conduit for Bladder Cancer. Antecedent seizure disorder- well-controlled on Levetiracetam 500 mg BID. Other meds are nifedipine, morphine, oxycodone. Now admitted after 2 weeks of deterioration with weakness, nausea, vomiting and new onset of confusion. Labs sig for marked elevation of all LFT's. CT of abd/chest: Multiple hepatic and pulmonary metastases. GAURANG: Thin. Neck supple. Neg Kernig's. Protuberant abd, NEURO: Awake, lethargic, cooperative Ox [facility]. Aug 11, 2018. Recalls Sept after 2 mins. Sl. Dysarthric. Follows commands Sl stare. Full EOM's. Full greenberg. Gag OK No drift. ++Asterixis. Brisk reflexes. Toes downgoing Withdraws all fours to pinch. IMP: Non-focal Neurological exam sig for Moderate, B/L cerebral dysfunction. Asterixis supports a Toxic-Metabolic Encephalopathy, most likely hepatic. SUGGEST: Check stat ammonia level Check B1,B12, TSH, r/o occult infection. Give Thiamine 250- mg IVPB q 8 hrs x 3 days Prognosis grave. THank you very much, Enrique Novak MD
[2018-07-10 16:32] LABS: PHENCYCLIDINE,URINE NEGATIVE ng/ml (CUTOFF=25); URINE AMPHETAMINES NEGATIVE ng/ml (CUTOFF=500); URINE BENZODIAZEPINES NEGATIVE ng/ml (CUTOFF=200)
[2018-07-10 16:36] LABS: COCAINE, UR NEGATIVE ng/ml (CUTOFF=300); URINE BARBITURATES NEGATIVE ng/ml (CUTOFF=200)
[2018-07-10 16:57] LABS: OPIATES, URI POSITIVE ng/ml (CUTOFF=300)
[2018-07-10 16:58] LABS: METHADONE, UR POSITIVE ng/ml (CUTOFF=300)
--- NOTE | 2018-07-10 17:01 | PN ---
Progress Note (short form) - Note Progress Note: ID consult dictated imp/reccd lethargy metastatic cancer hypotension- r/o sepsis abnl LFTS uti halie seizure disorder overall prognosis is poor empiric cultures empiric antibiotics vanco-check level in am zosyn- adjusted for halie Problem List - Problems (1) Lethargy Code(s): R53.83 - OTHER FATIGUE (2) Metastasis from bladder cancer Code(s): C79.9 - SECONDARY MALIGNANT NEOPLASM OF UNSPECIFIED SITE; C67.9 - MALIGNANT NEOPLASM OF BLADDER, UNSPECIFIED (3) Hypotension Code(s): I95.9 - HYPOTENSION, UNSPECIFIED (4) Elevated LFTs Code(s): R94.5 - ABNORMAL RESULTS OF LIVER FUNCTION STUDIES (5) UTI (urinary tract infection) Code(s): N39.0 - URINARY TRACT INFECTION, SITE NOT SPECIFIED (6) Seizure Code(s): R56.9 - UNSPECIFIED CONVULSIONS
[2018-07-10] MEDS: PIPERACILLIN/TAZOB 2.25 GM 2.25 GM in DEXTROSE 5%-WATER - 50 ML IVPB SCH ×2 (17:32→22:00)
[2018-07-10] MEDS ORDERED: LACTULOSE 20 GM/30 ML UDC (FOR ORAL USE ONLY) ONE (17:35)
[2018-07-10] MEDS ORDERED: PIPERACILLIN/TAZOBACTAM 2.25 GM VIAL IVPB ONE ×2 (17:35→21:55)
[2018-07-10] MEDS ORDERED: HEPARIN NA (PORCINE) 5,000 UNITS/ML 1ML VIAL SQ SCH (18:00)
[2018-07-10] MEDS ORDERED: THIAMINE HCL 200 MG/2 ML VIAL ONE (18:02)
[2018-07-10] MEDS: THIAMINE HCL 200 MG/2 ML VIAL IVPB SCH ×2 (18:08→22:01)
--- NOTE | 2018-07-10 18:18 | CONS ---
DATE OF CONSULTATION: DATE OF DICTATION: 07/10/2018 INFECTIOUS DISEASE CONSULTATION REQUESTING PHYSICIAN: Hospitalist Service CONSULTING PHYSICIAN: Florence Orlando M.D. HISTORY OF PRESENT ILLNESS: Patient was seen in the emergency room. The chart was reviewed. This is a 57-year-old man who was brought in by his . He apparently has been eating less and doing poorly at home. He has a history of metastatic cancer. Said she called 911 and he was brought to the emergency room. Patient is awake. He is sleepy, but arousable, unable to answer simple questions. He complains of diffuse abdominal pain. He notes he had surgery several months ago [facility]. Per the , he is apparently not talking much, he has not been eating much, and he has been very weak and unable to walk. He apparently on Monday had an episode of vomiting. PAST MEDICAL HISTORY: Notable for recent left nephrectomy and cystectomy with ileal conduit placement. He has a past medical history as well of seizure disorder and hypertension, as well as bladder cancer. He is status post ileal conduit, cystectomy, and left nephrectomy. SOCIAL HISTORY: Not known. He lives at home with his . ALLERGIES: He is allergic to IODINE. MEDICATION: At home include Colace, Compazine, Protonix, Keppra, Percocet, nifedipine, and methadone. FAMILY HISTORY: Not available. REVIEW OF SYSTEMS: Per the he has had increasing lethargy and more weakness. He was hypotensive in the emergency room and requested IV fluid resuscitation. PHYSICAL EXAMINATION: GENERAL: He is awake. As stated before, he is able to answer some simple questions but beyond that he goes back to sleep. VITAL SIGNS: His temperature is 98.8, pulse is 70, blood pressure 109/58, respiratory rate 16, he is saturating 96% on room air. HEENT: Normocephalic. Eyes are icteric. NECK: Supple. He has no meningeal signs. LUNGS: Diminished breath sounds at the bases. HEART: Regular rate and rhythm. ABDOMEN: Notable for the right sided ileal conduit. He has diffuse discomfort on palpation, but the abdomen is soft, and there is no guarding. EXTREMITIES: Without edema. SKIN: He has no skin breakdown. LABORATORY: White count is 12.6, hemoglobin 8.5, platelets 338. He has BUN and creatinine on admission were 95 and 2.9, on repeat are 89 and 2.4. Bilirubin is 4.7 with AST of 238, ALT of 140 and alkaline phosphatase of 534, INR is 1.5, albumin is 2. Urinalysis is 12 white cells with 2+ leukocyte esterase. His urine toxicology test is pending as well as a Keppra level. Blood and urine cultures are pending. He has had extensive imaging including CAT scan of the abdomen and pelvis, no hydronephrosis. He has evidence of liver metastases. He had a chest CT that showed multiple pulmonary nodules and some right basilar atelectasis and trace pleural effusion. He had a head CT that shows no evidence of any acute pathology. IMPRESSION: In summary, this is a 57-year-old man with lethargy, metastatic cancer, hypotension, possible sepsis, abnormal liver function tests, urinary tract infection, acute kidney injury, and seizure disorder. Cannot rule out sepsis as a source of his lethargy especially given the abnormal liver function tests. He could have biliary sepsis or a urinary tract infection. He does not appear to have any evidence of pneumonia. Would agree with the vancomycin and Zosyn that has been started. Would follow vancomycin level and dose accordingly. For his Zosyn, would adjust for his acute kidney injury. Further recommendations to follow. FLORENCE ORLANDO M.D. [id number]
[2018-07-10] MEDS ORDERED: DEXTROSE 5%-WATER - 50 ML IVPB ONE (21:55)
[2018-07-10] MEDS: levETIRAcetam 500 MG TABLET (FP) PO SCH (22:00)
[2018-07-10] MEDS: HEPARIN NA (PORCINE) 5,000 UNITS/ML 1ML VIAL SQ SCH (22:00)
[2018-07-11] MEDS ORDERED: DEXTROSE 5%-WATER - 50 ML IVPB ONE ×4 (01:25→20:34)
[2018-07-11] MEDS ORDERED: PIPERACILLIN/TAZOBACTAM 2.25 GM VIAL IVPB ONE ×4 (01:25→20:34)
[2018-07-11] MEDS: PIPERACILLIN/TAZOB 2.25 GM 2.25 GM in DEXTROSE 5%-WATER - 50 ML IVPB SCH ×4 (02:17→20:58)
[2018-07-11] MEDS: THIAMINE HCL 200 MG/2 ML VIAL IVPB SCH ×3 (05:36→22:21)
[2018-07-11] MEDS: HEPARIN NA (PORCINE) 5,000 UNITS/ML 1ML VIAL SQ SCH ×3 (05:36→22:21)
[2018-07-11 06:38] LABS: BASO % 1.4 % (0-2.0); EOS % 0.3 % (0-4.5); HEMATOCRIT 26.6 % (35.4-49); HEMOGLOBIN 8.1 GM/dL (11.7-16.9); LYMPH % 55.2 % (8-40); MCH 24.6 pg (25.7-33.7); MCHC 30.5 g/dl (32.0-35.9); MEAN CELL VOLUME 80.8 fl (80-96); MEAN PLT VOLUME 8.9 fl (7.5-11.1); MONO % 7.2 % (3.8-10.2); NEUT % 35.9 % (42.8-82.8); PLATELET COUNT 274 K/MM3 (134-434); RDW 16.9 % (11.9-15.9); WHITE BLOOD COUNT 12.4 K/mm3 (4.0-10.0)
[2018-07-11 06:58] LABS: CHLORIDE 121 mmol/L (98-107); POTASSIUM 5.3 mmol/L (3.5-5.1); SODIUM 145 mmol/L (136-145)
[2018-07-11 07:33] LABS: ALBUMIN 1.9 g/dl (3.4-5.0); SGOT/AST 248 U/L (15-37); SGPT/ALT 145 U/L (13-61)
[2018-07-11 07:34] LABS: ALK PHOS 581 U/L (45-117); BILIRUBIN,TOTAL 5.1 mg/dL (0.2-1); TOT PROT 5.9 g/dl (6.4-8.2)
[2018-07-11 08:10] LABS: AMYLASE 33 U/L (25-115); ANION GAP 9 MMOL/L (8-16); BLOOD UREA NITROGEN 71 mg/dL (7-18); CALCIUM 8.2 mg/dL (8.5-10.1); CO2 15 mmol/L (21-32); GLUCOSE,RANDOM 74 mg/dL (74-106); LIPASE 52 U/L (73-393); MAGNESIUM 2.3 mg/dL (1.8-2.4); PHOSPHOROUS 3.9 mg/dL (2.5-4.9)
[2018-07-11] MEDS ORDERED: PT OWN MED DRAWER 7, Y5N ONE ×2 (09:22→22:01)
--- NOTE | 2018-07-11 09:40 | PN ---
Progress Note, Physician Chief Complaint: MORE ALERT AND AWAKE SEEN IN ICU EVENTS AND NOTES REVIEWED - Current Medication List Current Medications: Active Medications Acetaminophen (Tylenol -) 650 mg PO Q6H PRN PRN Reason: PAIN 6-10 Docusate Sodium (Colace -) 100 mg PO DAILY [facility] Heparin Sodium (Porcine) (Heparin -) 5,000 unit SQ TID [facility] Last Admin: 07/11/18 05:36 Dose: 5,000 unit Sodium Chloride (Normal Saline -) 1,000 mls @ 100 mls/hr IV ASDIR [facility] Last Admin: 07/10/18 13:16 Dose: 100 mls/hr Piperacillin Sod/Tazobactam (Sod 2.25 gm/ Dextrose) 50 mls @ 100 mls/hr IVPB Q6H-IV [facility]; Protocol Last Admin: 07/11/18 02:17 Dose: 100 mls/hr Vancomycin HCl 1,250 mg/ (Dextrose) 250 mls @ 250 mls/2 hr IVPB ONCE ONE; Protocol Stop: 07/11/18 12:29 Lactulose (Cephulac (Oral Use)) 20 gm PO BID [facility] Last Admin: 07/10/18 22:00 Dose: 20 gm Levetiracetam (Keppra -) 500 mg PO BID [facility] Last Admin: 07/10/18 22:00 Dose: 500 mg Oxycodone HCl (Roxicodone -) 10 mg PO Q6H PRN PRN Reason: PAIN 6-10 Pantoprazole Sodium (Protonix Iv) 40 mg IVPUSH DAILY [facility] Prochlorperazine Maleate (Compazine -) 10 mg PO DAILY [facility] Thiamine HCl (Vitamin B1 Injection -) 200 mg IVPB TID [facility] Last Admin: 07/11/18 05:36 Dose: 200 mg - Objective Vital Signs: Vital Signs Temperature 98.6 F 07/11/18 06:00 Pulse Rate 104 H 07/11/18 06:00 Respiratory Rate 20 07/11/18 06:00 Blood Pressure 110/54 07/11/18 06:00 O2 Sat by Pulse Oximetry (%) 98 07/10/18 21:00 Constitutional: Yes: Mild Distress Eyes: Yes: WNL HENT: Yes: WNL Neck: Yes: WNL Cardiovascular: Yes: WNL Respiratory: Yes: CTA Bilaterally, On Nasal O2 Gastrointestinal: Yes: WNL Genitourinary: Yes: Other Musculoskeletal: Yes: Muscle Weakness Extremities: Yes: Other Neurological: Yes: Pre-Existing Deficit ...Motor Strength: LLE, RLE Psychiatric: Yes: Other Labs: CBC, BMP 07/11/18 05:30 07/11/18 05:30 INR, PTT INR 1.52 (0.83-1.09) H 07/10/18 04:27 Problem List - Problems (1) Acute renal failure Code(s): N17.9 - ACUTE KIDNEY FAILURE, UNSPECIFIED (2) Change in mental status Code(s): R41.82 - ALTERED MENTAL STATUS, UNSPECIFIED (3) Elevated LFTs Code(s): R94.5 - ABNORMAL RESULTS OF LIVER FUNCTION STUDIES (4) Hyperkalemia Code(s): E87.5 - HYPERKALEMIA (5) Hypotension Code(s): I95.9 - HYPOTENSION, UNSPECIFIED (6) Lethargy Code(s): R53.83 - OTHER FATIGUE (7) Metastasis from bladder cancer Code(s): C79.9 - SECONDARY MALIGNANT NEOPLASM OF UNSPECIFIED SITE; C67.9 - MALIGNANT NEOPLASM OF BLADDER, UNSPECIFIED (8) UTI (urinary tract infection) Code(s): N39.0 - URINARY TRACT INFECTION, SITE NOT SPECIFIED Assessment/Plan IV ABX CHECK CULTURES ID CONSULT APPRECIATED CHECK LABS DVT PROPHYLAXIS PULM EAL NEBS 02 SUPPORT
[2018-07-11] MEDS ORDERED: PANTOPRAZOLE SODIUM 40 MG VIAL IVPUSH SCH (10:00)
[2018-07-11] MEDS ORDERED: PROCHLORPERAZINE MALEATE 5 MG TABLET PO SCH (10:00)
[2018-07-11] MEDS ORDERED: DOCUSATE SODIUM 100 MG CAPSULE (FP) PO SCH (10:00)
[2018-07-11 10:06] LABS: ANISOCYTOSIS 0; MACROCYTOSIS 0; PLATELET ESTIMATE NORMAL; TEAR DROP CELLS 1+
[2018-07-11] MEDS ORDERED: VANCOMYCIN 1,250 MG in DEXTROSE 5%-WATER - 250 ML IVPB ONE (10:30)
[2018-07-11] MEDS: levETIRAcetam 500 MG TABLET (FP) PO SCH ×2 (10:41→22:21)
[2018-07-11] MEDS: LACTULOSE 20 GM/30 ML UDC (FOR ORAL USE ONLY) PO SCH ×2 (10:41→22:21)
[2018-07-11] MEDS ORDERED: SODIUM CHLORIDE 0.45% 1,000 ML IV SCH ×2 (11:00→12:47)
--- NOTE | 2018-07-11 11:15 | PN ---
Teaching Attending Note Name of Resident: Amber Saunders ATTENDING PHYSICIAN STATEMENT I saw and evaluated the patient. I reviewed the resident's note and discussed the case with the resident. I agree with the resident's findings and plan as documented. SUBJECTIVE: Pt seen and examined in the ICU. More alert, awake today. Blood pressure improving. OBJECTIVE: Vital Signs Period Temp Pulse Resp BP Sys/Hoffman Pulse Ox Last 24 Hr 97.7 F-98.9 F 64-110 16-21 95-118/40-68 94-98 Intake & Output 07/08/18 07/09/18 07/10/18 07/11/18 23:59 23:59 23:59 23:59 Intake Total 1400 1300 Output Total 1850 1000 Balance -450 300 Weight 83.325 kg Gen: more alert, awake Heart: RRR Lung: decreased breath sounds at the bases Abd: soft, RUQ tenderness Ext: no edema CBC, BMP 07/11/18 05:30 07/11/18 05:30 Active Medications Acetaminophen (Tylenol -) 650 mg PO Q6H PRN PRN Reason: PAIN 6-10 Docusate Sodium (Colace -) 100 mg PO DAILY [facility] Last Admin: 07/11/18 10:42 Dose: 100 mg Heparin Sodium (Porcine) (Heparin -) 5,000 unit SQ TID [facility] Last Admin: 07/11/18 05:36 Dose: 5,000 unit Piperacillin Sod/Tazobactam (Sod 2.25 gm/ Dextrose) 50 mls @ 100 mls/hr IVPB Q6H-IV [facility]; Protocol Last Admin: 07/11/18 10:40 Dose: 100 mls/hr Vancomycin HCl 1,250 mg/ (Dextrose) 250 mls @ 250 mls/2 hr IVPB ONCE ONE; Protocol Stop: 07/11/18 12:29 Last Admin: 07/11/18 10:40 Dose: 250 mls/2 hr Sodium Chloride (1/2 Normal Saline) 1,000 mls @ 83 mls/hr IV ASDIR [facility] Lactulose (Cephulac (Oral Use)) 20 gm PO BID [facility] Last Admin: 07/11/18 10:41 Dose: 20 gm Levetiracetam (Keppra -) 500 mg PO BID [facility] Last Admin: 07/11/18 10:41 Dose: 500 mg Oxycodone HCl (Roxicodone -) 10 mg PO Q6H PRN PRN Reason: PAIN 6-10 Pantoprazole Sodium (Protonix Iv) 40 mg IVPUSH DAILY [facility] Last Admin: 07/11/18 10:41 Dose: 40 mg Prochlorperazine Maleate (Compazine -) 10 mg PO DAILY [facility] Thiamine HCl (Vitamin B1 Injection -) 200 mg IVPB TID [facility] Last Admin: 07/11/18 05:36 Dose: 200 mg ASSESSMENT AND PLAN: UTI Severe Sepsis Acute Kidney Injury Metabolic Acidosis Metastatic Bladder Ca Elevated LFTs Anemia Seizure Disorder h/o HTN - continue IVF - continue antibiotics - f/u cultures - monitor urine output, creatinine - trend LFTs - can monitor on floor critical care time spent in reviewing chart, evaluating patient and formulating plan 35 min
--- NOTE | 2018-07-11 12:47 | PN ---
Progress Note, Physician History of Present Illness: Pt seen and examined at bedside. He is more awake and interactive today. - Current Medication List Current Medications: Active Medications Acetaminophen (Tylenol -) 650 mg PO Q6H PRN PRN Reason: PAIN 6-10 Last Admin: 07/11/18 11:17 Dose: 650 mg Docusate Sodium (Colace -) 100 mg PO DAILY [facility] Last Admin: 07/11/18 10:42 Dose: 100 mg Heparin Sodium (Porcine) (Heparin -) 5,000 unit SQ TID [facility] Last Admin: 07/11/18 05:36 Dose: 5,000 unit Piperacillin Sod/Tazobactam (Sod 2.25 gm/ Dextrose) 50 mls @ 100 mls/hr IVPB Q6H-IV [facility]; Protocol Last Admin: 07/11/18 10:40 Dose: 100 mls/hr Sodium Chloride (1/2 Normal Saline) 1,000 mls @ 83 mls/hr IV ASDIR [facility] Lactulose (Cephulac (Oral Use)) 20 gm PO BID [facility] Last Admin: 07/11/18 10:41 Dose: 20 gm Levetiracetam (Keppra -) 500 mg PO BID [facility] Last Admin: 07/11/18 10:41 Dose: 500 mg Oxycodone HCl (Roxicodone -) 10 mg PO Q6H PRN PRN Reason: PAIN 6-10 Last Admin: 07/11/18 11:16 Dose: 10 mg Pantoprazole Sodium (Protonix Iv) 40 mg IVPUSH DAILY [facility] Last Admin: 07/11/18 10:41 Dose: 40 mg Prochlorperazine Maleate (Compazine -) 10 mg PO DAILY [facility] Thiamine HCl (Vitamin B1 Injection -) 200 mg IVPB TID [facility] Last Admin: 07/11/18 05:36 Dose: 200 mg - Objective Vital Signs: Vital Signs Temperature 98.2 F 07/11/18 12:12 Pulse Rate 99 H 07/11/18 12:12 Respiratory Rate 17 07/11/18 12:12 Blood Pressure 121/70 07/11/18 12:12 O2 Sat by Pulse Oximetry (%) 94 L 07/11/18 09:00 Constitutional: Yes: Calm Eyes: Yes: Conjunctiva Clear HENT: Yes: Atraumatic Cardiovascular: Yes: S1, S2 Respiratory: Yes: CTA Bilaterally Gastrointestinal: Yes: Soft Genitourinary: Yes: Other (ileal conduit) Musculoskeletal: Yes: WNL Edema: No Neurological: Yes: Confusion Psychiatric: Yes: Oriented Labs: CBC, BMP 07/11/18 05:30 07/11/18 05:30 INR, PTT INR 1.52 (0.83-1.09) H 07/10/18 04:27 Problem List - Problems (1) Acute renal failure Code(s): N17.9 - ACUTE KIDNEY FAILURE, UNSPECIFIED (2) Change in mental status Code(s): R41.82 - ALTERED MENTAL STATUS, UNSPECIFIED (3) Hyperkalemia Code(s): E87.5 - HYPERKALEMIA (4) Hypotension Code(s): I95.9 - HYPOTENSION, UNSPECIFIED (5) Lethargy Code(s): R53.83 - OTHER FATIGUE Assessment/Plan Current Medications Generic Name Dose Route Start Last Admin Trade Name Freq PRN Reason Stop Dose Admin Acetaminophen 650 mg 07/10/18 15:21 07/11/18 11:17 Tylenol - PO 650 mg Q6H PRN Administration PAIN 6-10 Docusate Sodium 100 mg 07/11/18 10:00 07/11/18 10:42 Colace - PO 100 mg DAILY [facility] Administration Heparin Sodium (Porcine) 5,000 unit 07/10/18 22:00 07/11/18 05:36 Heparin - SQ 5,000 unit TID [facility] Administration Piperacillin Sod/Tazobactam 50 mls @ 100 mls/hr 07/10/18 17:15 07/11/18 10:40 Sod 2.25 gm/ Dextrose IVPB 100 mls/hr Q6H-IV [facility] Administration Protocol Sodium Chloride 1,000 mls @ 83 mls/hr 07/11/18 11:00 1/2 Normal Saline IV ASDIR [facility] Lactulose 20 gm 07/10/18 14:45 07/11/18 10:41 Cephulac (Oral Use) PO 20 gm BID [facility] Administration Levetiracetam 500 mg 07/10/18 22:00 07/11/18 10:41 Keppra - PO 500 mg BID [facility] Administration Oxycodone HCl 10 mg 07/10/18 15:21 07/11/18 11:16 Roxicodone - PO 10 mg Q6H PRN Administration PAIN 6-10 Pantoprazole Sodium 40 mg 07/11/18 10:00 07/11/18 10:41 Protonix Iv IVPUSH 40 mg DAILY [facility] Administration Prochlorperazine Maleate 10 mg 07/11/18 10:00 Compazine - PO DAILY [facility] Thiamine HCl 200 mg 07/10/18 18:00 07/11/18 05:36 Vitamin B1 Injection - IVPB 200 mg TID [facility] Administration Impression 1. DIVINA 2. CKD 3. bladder cancer 4. hx left nephrectomy 5. hypotension 6. altered mental status 7. metastatic disease 8. hyperkalemia improving 9. hx of htn although pt now hypotensive 10. hypotension 11. anemia 12. sepsis 13. epilepsy Plan - renal function is improving - cont with fluids - repeat potassium - pt is making urine - will increase rate of fluids - cont with hypotonic saline - add po bicarb Dr Valdez
[2018-07-11] MEDS ORDERED: SODIUM BICARBONATE 650 MG TABLET PO SCH (13:00)
[2018-07-11 14:05] LABS: ANION GAP 10 MMOL/L (8-16); BLOOD UREA NITROGEN 66 mg/dL (7-18); CALCIUM 8.4 mg/dL (8.5-10.1); CHLORIDE 122 mmol/L (98-107); CO2 15 mmol/L (21-32); CREATININE 1.9 mg/dL (0.55-1.3); GLUCOSE,RANDOM 92 mg/dL (74-106); POTASSIUM 4.9 mmol/L (3.5-5.1); SODIUM 147 mmol/L (136-145)
--- NOTE | 2018-07-11 14:11 | PN ---
Physical Exam: SUBJECTIVE: Patient seen and examined this AM. Pt is much more responsive to questions and less lethargic than admission. Pt draining urine from ileal conduit bag. No acute events overnight. Pt has been afebrile and vitals stable overnight. OBJECTIVE: Vital Signs Period Temp Pulse Resp BP Sys/Hoffman Pulse Ox Last 24 Hr 98 F-98.9 F 64-110 16-21 96-121/40-70 94-98 GENERAL: Pt alert and oriented to place and month of year. Pt less lethargic today, able to answer questions appropriately. HEAD: Normal with no signs of trauma. No tenderness to palpation. EYES: Extraocular movements intact, sclera anicteric, conjunctiva clear. No lid lag. EARS, NOSE, THROAT: External ears normal, nares patent. Moist oral mucous membranes. NECK: Normal range of motion, supple without lymphadenopathy, no visible JVD, or masses. LUNGS: Breath sounds diminished at both bases, with no wheezes, and no crackles. No accessory muscle use. HEART: Regular rate and rhythm, normal S1 and S2 without murmur, rub or gallop. ABDOMEN: Moderately distended abdomen, with no tenderness to palpation. Ileal conduit drain present, draining urine, with no erythema surrounding drain site. Normoactive bowel sounds, no guarding, no rebound, no masses. No hepatomegaly or splenomegaly. MUSCULOSKELETAL: Normal range of motion at all joints. No bony deformities or tenderness. Decreased strength in arms and legs. UPPER EXTREMITIES: 2+ pulses, warm, well-perfused. No cyanosis. No clubbing. Cap refill <2 seconds. No peripheral pitting edema. LOWER EXTREMITIES: 2+ pulses, warm, well-perfused. No calf tenderness. No peripheral pitting edema. NEUROLOGICAL: hat band attacher difficult to evaluate, as pt very lethargic. Able to move all extremities, but weak (stronger compared to admission). Gait not examined. PSYCHIATRIC: Cooperative. Good eye contact and answering questions appropriately. SKIN: Warm, dry, normal turgor, no rashes or lesions noted. Laboratory Results - last 24 hr 07/10/18 07/10/18 07/10/18 16:10 18:12 20:30 WBC RBC Hgb Hct MCV MCH MCHC RDW Plt Count MPV Absolute Neuts (auto) Neutrophils % Neutrophils % (Manual) Band Neutrophils % Lymphocytes % Lymphocytes % (Manual) Monocytes % Monocytes % (Manual) Eosinophils % Eosinophils % (Manual) Basophils % Basophils % (Manual) Myelocytes % (Man) Promyelocytes % (Man) Blast Cells % (Manual) Nucleated RBC % Metamyelocytes Hypochromia Platelet Estimate Polychromasia Poikilocytosis Anisocytosis Microcytosis Macrocytosis Tear Drop Cells Sodium Potassium Chloride Carbon Dioxide Anion Gap BUN Creatinine Creat Clearance w eGFR Random Glucose Calcium Phosphorus Magnesium Total Bilirubin AST ALT Alkaline Phosphatase Ammonia 19.77 Total Protein Albumin Total Amylase Lipase Vitamin B12 TSH Ur Random Sodium 34 Ur Random Potassium 21.4 Ur Random Chloride 28 Urine Creatinine Random Vancomycin Opiates Screen Positive A* Methadone Screen Positive A* Barbiturate Screen Negative Phencyclidine Screen Negative Ur Amphetamines Screen Negative MDMA (Ecstasy) Screen Negative Benzodiazepines Screen Negative Cocaine Screen Negative U Marijuana (THC) Screen Negative 07/10/18 07/11/18 07/11/18 20:30 05:30 05:30 WBC 12.4 H RBC 3.30 L Hgb 8.1 L Hct 26.6 L MCV 80.8 MCH 24.6 L MCHC 30.5 L RDW 16.9 H Plt Count 274 MPV 8.9 Absolute Neuts (auto) 4.4 Neutrophils % 35.9 L Neutrophils % (Manual) 70.3 Band Neutrophils % 0.0 Lymphocytes % 55.2 H Lymphocytes % (Manual) 11.9 Monocytes % 7.2 Monocytes % (Manual) 16 H D Eosinophils % 0.3 Eosinophils % (Manual) 0.0 Basophils % 1.4 D Basophils % (Manual) 0.0 Myelocytes % (Man) 2 D Promyelocytes % (Man) 0 Blast Cells % (Manual) 0 Nucleated RBC % 0 Metamyelocytes 0 D Hypochromia 1+ Platelet Estimate Normal Polychromasia 1+ Poikilocytosis 2+ Anisocytosis 0 Microcytosis 0 Macrocytosis 0 Tear Drop Cells 1+ Sodium Potassium Chloride Carbon Dioxide Anion Gap BUN Creatinine Creat Clearance w eGFR Random Glucose Calcium Phosphorus Magnesium Total Bilirubin AST ALT Alkaline Phosphatase Ammonia Total Protein Albumin Total Amylase Lipase Vitamin B12 TSH Ur Random Sodium Ur Random Potassium Ur Random Chloride Urine Creatinine 46.5 Random Vancomycin 6.24 Opiates Screen Methadone Screen Barbiturate Screen Phencyclidine Screen Ur Amphetamines Screen MDMA (Ecstasy) Screen Benzodiazepines Screen Cocaine Screen U Marijuana (THC) Screen 07/11/18 07/11/18 07/11/18 05:30 05:30 12:50 WBC RBC Hgb Hct MCV MCH MCHC RDW Plt Count MPV Absolute Neuts (auto) Neutrophils % Neutrophils % (Manual) Band Neutrophils % Lymphocytes % Lymphocytes % (Manual) Monocytes % Monocytes % (Manual) Eosinophils % Eosinophils % (Manual) Basophils % Basophils % (Manual) Myelocytes % (Man) Promyelocytes % (Man) Blast Cells % (Manual) Nucleated RBC % Metamyelocytes Hypochromia Platelet Estimate Polychromasia Poikilocytosis Anisocytosis Microcytosis Macrocytosis Tear Drop Cells Sodium 145 147 H Potassium 5.3 H 4.9 Chloride 121 H 122 H Carbon Dioxide 15 L 15 L Anion Gap 9 10 BUN 71 H 66 H Creatinine 2.0 H 1.9 H Creat Clearance w eGFR 34.61 36.72 Random Glucose 74 92 Calcium 8.2 L 8.4 L Phosphorus 3.9 Magnesium 2.3 Total Bilirubin 5.1 H AST 248 H ALT 145 H Alkaline Phosphatase 581 H Ammonia Total Protein 5.9 L Albumin 1.9 L Total Amylase 33 Lipase 52 L Vitamin B12 > 6000 H Cancelled TSH 1.00 Ur Random Sodium Ur Random Potassium Ur Random Chloride Urine Creatinine Random Vancomycin Opiates Screen Methadone Screen Barbiturate Screen Phencyclidine Screen Ur Amphetamines Screen MDMA (Ecstasy) Screen Benzodiazepines Screen Cocaine Screen U Marijuana (THC) Screen Active Medications Generic Name Dose Route Start Last Admin Trade Name Freq PRN Reason Stop Dose Admin Acetaminophen 650 mg 07/10/18 15:21 07/11/18 11:17 Tylenol - PO 650 mg Q6H PRN Administration PAIN 6-10 Docusate Sodium 100 mg 07/11/18 10:00 07/11/18 10:42 Colace - PO 100 mg DAILY LOREN Administration Heparin Sodium (Porcine) 5,000 unit 07/10/18 22:00 07/11/18 13:57 Heparin - SQ 5,000 unit TID LOREN Administration Piperacillin Sod/Tazobactam 50 mls @ 100 mls/hr 07/10/18 17:15 07/11/18 14:03 Sod 2.25 gm/ Dextrose IVPB 100 mls/hr Q6H-IV [facility]OR[facility] Administration Protocol Sodium Chloride 1,000 mls @ 100 mls/hr 07/11/18 12:47 1/2 Normal Saline IV ASDIR LOREN Lactulose 20 gm 07/10/18 14:45 09/19/18 10:41 Cephulac (Oral Use) PO 20 gm BID [facility] Administration Levetiracetam 500 mg 07/10/18 22:00 07/11/18 10:41 Keppra - PO 500 mg BID [facility] Administration Oxycodone HCl 10 mg 07/10/18 15:21 07/11/18 11:16 Roxicodone - PO 10 mg Q6H PRN Administration PAIN 6-10 Pantoprazole Sodium 40 mg 07/11/18 10:00 07/11/18 10:41 Protonix Iv IVPUSH 40 mg DAILY [facility] Administration Prochlorperazine Maleate 10 mg 07/11/18 10:00 07/11/18 13:57 Compazine - PO 10 mg DAILY [facility] Administration Sodium Bicarbonate 650 mg 07/11/18 13:00 07/11/18 13:57 Sodium Bicarbonate - PO 650 mg BID LOREN Administration Thiamine HCl 200 mg 07/10/18 18:00 07/11/18 13:57 Vitamin B1 Injection - IVPB 200 mg TID LOREN Administration ASSESSMENT/PLAN: Pt is a 57 yo M, with PMH of bladder CA s/p bladder removal 2 months ago with L nephrectomy, sz disorder, HTN, opioid/cocaine use (on methadone), who presents with AMS and decreased PO intake likely 2/2 to sepsis vs hepatic encephalopathy. 1. AMS -Continue Keppra 500 mg PO BID, as sz have been well-controlled; Keppra level ordered -B-12 >6000; Thiamine 200 mg IVPB TID x3 days per Dr. Novak. -Utox showed positive opiates/methadone (expected) -Head CT negative -Lactulose 20 mg BID ordered per Dr. Reed; Ammonia level WNL -Substance use disorder -- will hold methadone 60 mg PO Qday until pt mental status improves 2. CVS -Continue to hold nefidipine 30 mg PO Qday as pt BP low -Continue to monitor for hypotension -Prior stress test (January 2018) showed normal LV function, EF 72% -ECG showed NSR, incomplete RBBB, unchanged from ECG of Nov 2016 3. Pulm -Chest x-ray showed b/l consolidations (likely metastasis); chest x-ray unchanged from yesterday, does not appear to be fluid overloaded -Provide O2 supplementation as necessary 4. Renal/ -Ileal conduit drain intact, no erythema around drain site, continue to monitor output -BUN/Cr down-trending (likely DIVINA) -- 95/2.9 -> 89/2.4 --> 66/1.9 today -Renal US: R kidney unremarkable, no acute pathology 5. GI/Hepatic -CT abd/pelvis: multiple pulmonary metastases, R cardiophrenic LAD, liver metastasis, L nephrectomy + cystectomy, RLQ ileal conduit, possible cholecystitis, no acute pathology -F/u abdominal US limited due to pt clinical status -- showed contracted GB - no visible calculi -Continue following LFTs, elevations likely due to metastatic ds process; Ammonia level WNL -100 Colace PO Qday, Protonix 40 mg IV Qday, and Compazine 10 mg PO Qday for bowel regimen, and nausea -Lipase 52, Amylase 33 6. ID -Dr. Davis following - continue Zosyn 2.25 g Q6hr and we ordered Vanc level for tomorrow AM -Vanc level 6 this AM - additional 1.25 g Vanc (weight-based) provided -1g Vanc and 3.375 g Zosyn provided in ER -Blood cx: no growth after 24 hrs -Urine cx: Non-lactose GNB + Group D strep or Enterococcus -UA showed 2+ leuk esterase, WBC 12 7. FEN/Diet -Continue to monitor electrolytes and replete as needed -K high (5.3) - Dr. Valdez provided 650 mg sodium bicarb BID -- repeat K 4.9, will continue to follow -NaCl changed to 1/2NS @100/hr. Cl 122, will continue to follow -Mental status improved - providing soft diet -*Pt passed bedside 3oz swallow test in the unit; able to tolerate PO medications as well without difficulty or spitting up 8. Prophylaxis -Heparin 5000 units TID -SCDs Dispo: Pt will be transferred to Telemetry Floor Problem List - Problems (1) Acute renal failure Code(s): N17.9 - ACUTE KIDNEY FAILURE, UNSPECIFIED (2) Change in mental status Code(s): R41.82 - ALTERED MENTAL STATUS, UNSPECIFIED (3) Elevated LFTs Code(s): R94.5 - ABNORMAL RESULTS OF LIVER FUNCTION STUDIES (4) Hyperkalemia Code(s): E87.5 - HYPERKALEMIA (5) Hypotension Code(s): I95.9 - HYPOTENSION, UNSPECIFIED (6) Lethargy Code(s): R53.83 - OTHER FATIGUE (7) Metastasis from bladder cancer Code(s): C79.9 - SECONDARY MALIGNANT NEOPLASM OF UNSPECIFIED SITE; C67.9 - MALIGNANT NEOPLASM OF BLADDER, UNSPECIFIED Visit type - Emergency Visit Emergency Visit: Yes ED Registration Date: 07/10/18 Care time: The patient presented to the Emergency Department on the above date and was hospitalized for further evaluation of their emergent condition. - New Patient This patient is new to me today: No - Critical Care Critical Care patient: Yes Total Critical Care Time (in minutes): 40 Critical Care Statement: The care of this patient involved high complexity decision making to prevent further life threatening deterioration of the patient 's condition and/or to evaluate & treat vital organ system(s) failure or risk of failure. - Discharge Referral Referred to [facility] Med [facility].: Yes
[2018-07-11] MEDS ORDERED: ACETAMINOPHEN 325 MG TABLET (FP) PO PRN (15:40)
[2018-07-11] MEDS: SODIUM CHLORIDE 0.45% 1,000 ML IV SCH (16:05)
--- NOTE | 2018-07-11 16:47 | CONSULT ---
Consultation: REQUESTING PROVIDER: CONSULT REQUEST: We have been asked to medically evaluate this patient for ( metastatic cancer). HISTORY OF PRESENT ILLNESS: Most of the history obtained from the patient's . Patient is a 57 year old male was brought to the ED with the chief complaint of feeling weak and tired since a couple of days. As per the patients , he is an independent person, ambulates on his own, has normal speech. However, since few days, had been feeling tired, very weak and the day of admission had trouble speaking, was incoherent, couldn't ambulate, hence brought in to the ED for further evaluation and treatment. Patient denies chest pain, sob, cough, palpitation, abdominal pain, nausea or vomiting. reports that patient was diagnosed to have left renal carcinoma and bladder cancer this year in 2018. Was treated with one cycle of chemo with radiation. Then had left nephrectomy in March,. Had bladder resection in 2013. It was done at [facility]. Post surgery, he saw an oncologist but he didn't like the doctor so never followed up after. Recent Travel: denies PAST MEDICAL HISTORY: HTN; Bladder CA, last scraping in 2015; ?HIV, previous chart (2013) documents same but repeatedly denies any other medical problems beside HTN and bladder CA; chronic neck and back pain, seizure. PAST SURGICAL HISTORY: back surgery; bladder tumor resection 2013 Social History: Smoking: Quit a year ago, smoked < 1 pack/day for > 10 yrs Alcohol: Occasional. Drugs: Cocaine and heroin abuse, ( says it was years ago but as per EMR he was abusing drugs till 06/08 Family History: 2 sisters with DM father many years ago mother alive and well Allergies Iodinated Contrast- Oral and IV Dye [Iodinated Contrast Media - IV Dye] REVIEW OF SYSTEMS: CONSTITUTIONAL: Absent: fever, chills, diaphoresis, generalized weakness, malaise, loss of appetite, weight change HEENT: Absent: rhinorrhea, nasal congestion, throat pain, throat swelling, difficulty swallowing, mouth swelling, ear pain, eye pain, visual changes CARDIOVASCULAR: Absent: chest pain, syncope, palpitations, irregular heart rate, lightheadedness , peripheral edema RESPIRATORY: Absent: cough, shortness of breath, dyspnea with exertion, orthopnea, wheezing, stridor, hemoptysis GASTROINTESTINAL: Absent: abdominal pain, abdominal distension, nausea, vomiting, diarrhea, constipation, melena, hematochezia GENITOURINARY: Absent: dysuria, frequency, urgency, hesitancy, hematuria, flank pain, genital pain MUSCULOSKELETAL: Absent: myalgia, arthralgia, joint swelling, back pain, neck pain SKIN: Absent: rash, itching, pallor HEMATOLOGIC/IMMUNOLOGIC: Absent: easy bleeding, easy bruising, lymphadenopathy, frequent infections ENDOCRINE: Absent: unexplained weight gain, unexplained weight loss, heat intolerance, cold intolerance NEUROLOGIC: Absent: headache, focal weakness or paresthesias, dizziness, unsteady gait, seizure, mental status changes, bladder or bowel incontinence PSYCHIATRIC: Absent: anxiety, depression, suicidal or homicidal ideation, hallucinations. PHYSICAL EXAMINATION Vital Signs - 24 hr 07/10/18 07/10/18 07/10/18 18:06 19:08 20:22 Temperature 98.2 F Pulse Rate Pulse Rate [ 94 H 64 68 Right Radial] Respiratory 16 16 19 Rate Blood Pressure Blood Pressure 106/49 104/58 114/68 [Left Arm] O2 Sat by Pulse 98 98 98 Oximetry (%) 07/10/18 07/10/18 07/11/18 21:00 22:00 00:00 Temperature 98 F 98.9 F Pulse Rate 110 H 106 H 107 H Pulse Rate [ Right Radial] Respiratory 18 18 18 Rate Blood Pressure 110/64 98/40 109/49 Blood Pressure [Left Arm] O2 Sat by Pulse 98 Oximetry (%) 07/11/18 07/11/18 07/11/18 02:00 05:05 06:00 Temperature 98.2 F 98.6 F Pulse Rate 106 H 104 H 104 H Pulse Rate [ Right Radial] Respiratory 21 20 20 Rate Blood Pressure 118/62 96/53 110/54 Blood Pressure [Left Arm] O2 Sat by Pulse Oximetry (%) 07/11/18 07/11/18 07/11/18 09:00 12:12 16:16 Temperature 98.2 F Pulse Rate 99 H Pulse Rate [ Right Radial] Respiratory 17 Rate Blood Pressure 121/70 Blood Pressure [Left Arm] O2 Sat by Pulse 94 L 98 Oximetry (%) GENERAL: Middle aged male, sitting comfortably in bed, Awake, alert, and fully oriented (slow in response), in no acute distress. HEAD: Normal with no signs of trauma. EYES: EOM intact, pallor +, no icterus. EARS, NOSE, THROAT: Ears normal. Moist mucous membranes. NECK: Supple. LUNGS: Breath sounds equal, clear to auscultation bilaterally. No wheezes, and no crackles. No accessory muscle use. HEART: Regular rate and rhythm, normal S1 and S2 without murmur. ABDOMEN: Has an ostomy bag for the bladder draining clear urine, Soft, nontender , no organomegaly. MUSCULOSKELETAL: Normal range of motion at all joints. No bony deformities or tenderness. No CVA tenderness. UPPER EXTREMITIES: 2+ pulses, warm, well-perfused. No cyanosis. No clubbing. Cap refill <2 seconds. No peripheral edema. LOWER EXTREMITIES: 2+ pulses, warm, well-perfused. No calf tenderness. No peripheral edema. NEUROLOGICAL: No facial droop, power 5/5 in all extremities. Cranial nerves II- XII intact. Normal speech but doesn't respond quickly (not at baseline). Gait not observed. PSYCHIATRIC: Cooperative. Good eye contact. Appropriate mood and affect. SKIN: Warm, dry, normal turgor, no rashes or lesions noted. Laboratory Results - last 24 hr 07/10/18 07/10/18 07/10/18 16:10 18:12 20:30 WBC RBC Hgb Hct MCV MCH MCHC RDW Plt Count MPV Absolute Neuts (auto) Neutrophils % Neutrophils % (Manual) Band Neutrophils % Lymphocytes % Lymphocytes % (Manual) Monocytes % Monocytes % (Manual) Eosinophils % Eosinophils % (Manual) Basophils % Basophils % (Manual) Myelocytes % (Man) Promyelocytes % (Man) Blast Cells % (Manual) Nucleated RBC % Metamyelocytes Hypochromia Platelet Estimate Polychromasia Poikilocytosis Anisocytosis Microcytosis Macrocytosis Tear Drop Cells Sodium Potassium Chloride Carbon Dioxide Anion Gap BUN Creatinine Creat Clearance w eGFR Random Glucose Calcium Phosphorus Magnesium Total Bilirubin AST ALT Alkaline Phosphatase Ammonia 19.77 Total Protein Albumin Total Amylase Lipase Vitamin B12 TSH Ur Random Sodium 34 Ur Random Potassium 21.4 Ur Random Chloride 28 Urine Creatinine Random Vancomycin Opiates Screen Positive A* Methadone Screen Positive A* Barbiturate Screen Negative Phencyclidine Screen Negative Ur Amphetamines Screen Negative MDMA (Ecstasy) Screen Negative Benzodiazepines Screen Negative Cocaine Screen Negative U Marijuana (THC) Screen Negative 07/10/18 07/11/18 07/11/18 20:30 05:30 05:30 WBC 12.4 H RBC 3.30 L Hgb 8.1 L Hct 26.6 L MCV 80.8 MCH 24.6 L MCHC 30.5 L RDW 16.9 H Plt Count 274 MPV 8.9 Absolute Neuts (auto) 4.4 Neutrophils % 35.9 L Neutrophils % (Manual) 70.3 Band Neutrophils % 0.0 Lymphocytes % 55.2 H Lymphocytes % (Manual) 11.9 Monocytes % 7.2 Monocytes % (Manual) 16 H D Eosinophils % 0.3 Eosinophils % (Manual) 0.0 Basophils % 1.4 D Basophils % (Manual) 0.0 Myelocytes % (Man) 2 D Promyelocytes % (Man) 0 Blast Cells % (Manual) 0 Nucleated RBC % 0 Metamyelocytes 0 D Hypochromia 1+ Platelet Estimate Normal Polychromasia 1+ Poikilocytosis 2+ Anisocytosis 0 Microcytosis 0 Macrocytosis 0 Tear Drop Cells 1+ Sodium Potassium Chloride Carbon Dioxide Anion Gap BUN Creatinine Creat Clearance w eGFR Random Glucose Calcium Phosphorus Magnesium Total Bilirubin AST ALT Alkaline Phosphatase Ammonia Total Protein Albumin Total Amylase Lipase Vitamin B12 TSH Ur Random Sodium Ur Random Potassium Ur Random Chloride Urine Creatinine 46.5 Random Vancomycin 6.24 Opiates Screen Methadone Screen Barbiturate Screen Phencyclidine Screen Ur Amphetamines Screen MDMA (Ecstasy) Screen Benzodiazepines Screen Cocaine Screen U Marijuana (THC) Screen 07/11/18 07/11/18 07/11/18 05:30 05:30 12:50 WBC RBC Hgb Hct MCV MCH MCHC RDW Plt Count MPV Absolute Neuts (auto) Neutrophils % Neutrophils % (Manual) Band Neutrophils % Lymphocytes % Lymphocytes % (Manual) Monocytes % Monocytes % (Manual) Eosinophils % Eosinophils % (Manual) Basophils % Basophils % (Manual) Myelocytes % (Man) Promyelocytes % (Man) Blast Cells % (Manual) Nucleated RBC % Metamyelocytes Hypochromia Platelet Estimate Polychromasia Poikilocytosis Anisocytosis Microcytosis Macrocytosis Tear Drop Cells Sodium 145 147 H Potassium 5.3 H 4.9 Chloride 121 H 122 H Carbon Dioxide 15 L 15 L Anion Gap 9 10 BUN 71 H 66 H Creatinine 2.0 H 1.9 H Creat Clearance w eGFR 34.61 36.72 Random Glucose 74 92 Calcium 8.2 L 8.4 L Phosphorus 3.9 Magnesium 2.3 Total Bilirubin 5.1 H AST 248 H ALT 145 H Alkaline Phosphatase 581 H Ammonia Total Protein 5.9 L Albumin 1.9 L Total Amylase 33 Lipase 52 L Vitamin B12 > 6000 H Cancelled TSH 1.00 Ur Random Sodium Ur Random Potassium Ur Random Chloride Urine Creatinine Random Vancomycin Opiates Screen Methadone Screen Barbiturate Screen Phencyclidine Screen Ur Amphetamines Screen MDMA (Ecstasy) Screen Benzodiazepines Screen Cocaine Screen U Marijuana (THC) Screen Active Medications Generic Name Dose Route Start Last Admin Trade Name Freq PRN Reason Stop Dose Admin Acetaminophen 650 mg 07/11/18 15:40 Tylenol - PO Q6H PRN PAIN 6-10 Docusate Sodium 100 mg 07/12/18 10:00 Colace - PO DAILY [facility] Heparin Sodium (Porcine) 5,000 unit 07/11/18 22:00 Heparin - SQ TID [facility] Piperacillin Sod/Tazobactam 50 mls @ 100 mls/hr 07/11/18 21:00 Sod 2.25 gm/ Dextrose IVPB Q6H-IV [facility] Protocol Sodium Chloride 1,000 mls @ 100 mls/hr 07/11/18 15:40 07/11/18 16:05 1/2 Normal Saline IV 100 mls/hr ASDIR [facility] Administration Lactulose 20 gm 07/11/18 22:00 Cephulac (Oral Use) PO BID [facility] Levetiracetam 500 mg 07/11/18 22:00 Keppra - PO BID [facility] Oxycodone HCl 10 mg 07/11/18 15:40 Roxicodone - PO Q6H PRN PAIN 6-10 Pantoprazole Sodium 40 mg 07/12/18 10:00 Protonix Iv IVPUSH DAILY [facility] Prochlorperazine Maleate 10 mg 07/12/18 10:00 Compazine - PO DAILY [facility] Sodium Bicarbonate 650 mg 07/11/18 22:00 Sodium Bicarbonate - PO BID [facility] Thiamine HCl 200 mg 07/11/18 22:00 Vitamin B1 Injection - IVPB TID [facility] Patient is a 57 year old male with significant past medical history of HTN; Bladder CA, last scraping in 2016; ?HIV, previous chart (2014) documents same but repeatedly denies any other medical problems beside HTN and bladder CA ; chronic neck and back pain, seizure. was brought to the ED with the chief complaint of feeling weak and tired since a couple of days. ASSESSMENT Altered mental status likely in HE Hypertension but now hypotensive on admission Metastatic lung cancer Left renal cell carcinoma s/p resection (04/09) Bladder CA s/p resection in 2013 Seizure Normocytic anemia Hypernatremia DIVINA Transaminitis Heroin abuse on Methadone Cholelithiasis PLAN Left renal cell carcinoma s/p resection (04/09); Bladder CA s/p resection (2013) now has metastatic cancer in Liver and lung CT abd/pelvis without contrast: Multiple pulmonary metastases. Hepatomegaly with heterogenous liver suspicious for multiple mets. Will try to get records from his oncologist regarding his past therapy Would recommend to do a brain MRI. To discuss further treatment and plan with the patient and his Normocytic anemia H/H 8.1/26.6 Doesn't need transfusion at this time. Transfuse if Hb is < 7gm/dl or if actively bleeding. Plan of care explained to the patient and his . They verbalized understanding. Case discussed with Dr. Mistry. Dispo: We will continue to follow the patient. Thank you for this consultative opportunity. Visit type - Emergency Visit Emergency Visit: Yes ED Registration Date: 07/10/18 Care time: The patient presented to the Emergency Department on the above date and was hospitalized for further evaluation of their emergent condition. - New Patient This patient is new to me today: Yes Date on this admission: 07/11/18 - Critical Care Critical Care patient: No
--- NOTE | 2018-07-11 17:23 | CONSULT ---
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 bladder cancer s/p cystectomy) Heme/Onc: Yes: Cancer (bladder cancer), Other - Past Surgical History Past Surgical History: Yes: Ileal Conduit, Nephrectomy (s/p left nephrectomy) Additional Past Surgical History: bladder removal - Smoking History Smoking history: Never smoked Have you smoked in the past 12 months: No Aproximately how many cigarettes per day: 10 - Alcohol/Substance Use Hx Alcohol Use: No - Social History History of Recent Travel: No History - Admission Reason For Visit: ACUTE RENAL FAILURE - Hearing Hearing: Normal Speech Evaluation - Communication Primary Language: SAMMARINESE Communication: Yes: Within Normal Limits, Simple Responses, Dysarthria Oral Expression Ability: Yes: No Impairment - Speech Production Apraxia: No Able to Make Needs Known: Yes: WNL Intelligibility: Yes: WNL - Speech Characteristics Voice Loudness: Normal Voice Pitch: Yes: Normal Voice Phonatory-based Quality: Yes: Normal Speech Pattern: Normal Nasal Resonance: Normal Articulation: Yes: Precise Rate of Speech: Too Slow (mild slow speech) Voice Comment: vocal quality is WFL. Rate is slightly slower than average - Language/Auditory Comprehension Follows: Yes: 1 Stage Simple Commands, 2 Stage Simple Commands Observation: Able to respond to yes/no queries: Yes, Yes/No Confusion: No, Comprehends Conversational Speech: Yes, Benefits from Slow Speech: No, Benefits from Repetiton: No, Benefits from Increased Volume of Speech: No - Language/Verbal Expression Able to Respond to Simple Queries: Yes: WNL Able to Communicate Wants and Needs: Yes: WNL Functional Communication Status: Yes: WNL Aware of Errors: Yes Attempts to Correct Errors: No Use of Gestures: No Written Expression: not examined Oral Expression: WFL Reading Comprehension: not examined Calculations: not examined Attention: Yes: Intact - 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 Jaw Position: Closed at Rest Against Resistance Opening: Normal Against Resistance Closing: Normal Pucker Lips: Normal Smile: Normal Lips, Comment: WFL for speech and swallowing purposes. Lingual Speed of Movement: Normal Lingual Movement Strgth Against Opposition: Normal Lingual Movement Characteristics: Normal Lingual Comment: WFL for speech and swallowing purposes. Soft Palate Description: Normal Color Hard Palate Description: Normal Color Gag Reflex: Strong Bite Reflex: Present Velopharyngeal Movement: Normal Laryngeal Elevation: WFL Needs Assistance: Yes Rate of Intake: WFL (can be a little fast at times.) Bolus Size: WFL Labial Seal: WFL Chewing: WFL Oral Prep Time: WFL A-P Transit: WFL Pocketing: None Timing of Swallow: WFL Coughing/Throat Clear: No Change in Voice: No Other Findings/Remarks: 57 yo male seen at bedside for swallow evla to r/o dysphagia with family members present for this session. Pt is verbal, A&Ox3 cooperative. Pt admitted to [facility] for AMS (resolved) with pmhx includes s/p bladder CA removed SzD, ARF and HTN. Vocal quality is WNL with adequate airway protection. Oral motor examination is WFL. Current diet soft solids with thin liquids. Pt given po trials of pureed, soft and regular solid with minimal assistance revealed good acceptance, adequate mastication bolus formation and transport. Pharyngeal swallow appears timely with no cough or changes in voicing after the swallow. Thin liquid trial via cup and straw were unremarkable for dysphagia and /or aspiration at this time Recommendations - Speech Evaluation, Impression/Plan Impression: 57 yo male presents with minimal sign of oral preparation dysphagia with no s/s of aspiration for pureed, soft, cut to bite size regular solids and thin liquids at this time. Speech rate is mildly reduced but is WNL. Heel Trimmer Goals: tolerate the least restrictive diet without s/s of aspiration Short Term Goals: tolerate regular soft solids and thin liquids without s/s of aspiration. - Dysphagia Impressions/Plan Swallowing Skills: WFL Dysphagia Impressions: Minimal Impairment (pt may require assistance with food preparation.) Dysphagia Treatment Plan: Small Bites, Safe Rate, Elevate HOB during feed, Other (may require verbal prompting to slow slow rate.) Dysphagia Evaluation Summary: Offer soft regular solids with thin liquids as tolerated. May require verbal prompting with rate of intake. Observe standard aspiration precautions. Results given verbally to bellows charger assembler Teddy and to pcp via chart. - Recommendations Diet Consistency: Regular, 1 - 2 Soft Items Medication Administration: Whole with water Liquids: Thin Liquids
[2018-07-11] MEDS: PHYTONADIONE 10 MG/1 ML AMP SQ SCH (18:59)
[2018-07-11] MEDS: SODIUM BICARBONATE 650 MG TABLET PO SCH (22:21)
--- NOTE | 2018-07-11 22:34 | CONSULT ---
Consult - text type - Consultation Consultation Note: Patient seen and examined with resident Dr. Shah Altered mental status ? sepsis ? toxic/metabolic encephalopathy ? opiates Bladder CA s/p resection in 2013 Seizure DIVINA Transaminitis Heroin abuse on Methadone Cholelithiasis PLAN Left renal cell carcinoma s/p resection (04/09); Bladder CA s/p resection (2013) now has metastatic cancer in Liver and lung CT abd/pelvis without contrast: Multiple pulmonary metastases. Hepatomegaly with heterogenous liver suspicious for multiple mets. Will need to get records from his oncologist regarding his past therapy Ongoing supportive care for ? sepsis/DIVINA Palliative care consult
[2018-07-12] MEDS ORDERED: DEXTROSE 5%-WATER - 50 ML IVPB ONE ×4 (02:59→20:14)
[2018-07-12] MEDS ORDERED: PIPERACILLIN/TAZOBACTAM 2.25 GM VIAL IVPB ONE ×4 (02:59→20:14)
[2018-07-12] MEDS: SODIUM CHLORIDE 0.45% 1,000 ML IV SCH ×2 (03:15→20:35)
[2018-07-12] MEDS: PIPERACILLIN/TAZOB 2.25 GM 2.25 GM in DEXTROSE 5%-WATER - 50 ML IVPB SCH ×4 (03:15→20:22)
[2018-07-12] MEDS: HEPARIN NA (PORCINE) 5,000 UNITS/ML 1ML VIAL SQ SCH ×3 (06:37→22:11)
[2018-07-12] MEDS: THIAMINE HCL 200 MG/2 ML VIAL IVPB SCH ×3 (06:39→22:12)
[2018-07-12 07:16] LABS: EOS % 0.3 % (0-4.5); LYMPH % 53.8 % (8-40); MCH 24.7 pg (25.7-33.7); MCHC 30.7 g/dl (32.0-35.9); MEAN CELL VOLUME 80.5 fl (80-96); MEAN PLT VOLUME 8.8 fl (7.5-11.1); MONO % 6.2 % (3.8-10.2); NEUT % 39.7 % (42.8-82.8); PLATELET COUNT 269 K/MM3 (134-434); RBC 3.23 M/mm3 (4.00-5.60); RDW 17.3 % (11.9-15.9); WHITE BLOOD COUNT 15.3 K/mm3 (4.0-10.0)
[2018-07-12 07:38] LABS: ALBUMIN 1.9 g/dl (3.4-5.0); ANION GAP 10 MMOL/L (8-16); BLOOD UREA NITROGEN 54 mg/dL (7-18); CALCIUM 8.3 mg/dL (8.5-10.1); CHLORIDE 117 mmol/L (98-107); CO2 16 mmol/L (21-32); GLUCOSE,RANDOM 67 mg/dL (74-106); MAGNESIUM 1.9 mg/dL (1.8-2.4); PHOSPHOROUS 3.3 mg/dL (2.5-4.9); POTASSIUM 4.6 mmol/L (3.5-5.1); SGOT/AST 206 U/L (15-37); SODIUM 143 mmol/L (136-145)
[2018-07-12 07:40] LABS: ALK PHOS 560 U/L (45-117); BILIRUBIN,TOTAL 5.9 mg/dL (0.2-1); SGPT/ALT 139 U/L (13-61); TOT PROT 5.9 g/dl (6.4-8.2)
[2018-07-12] MEDS: levETIRAcetam 500 MG TABLET (FP) PO SCH ×2 (09:53→22:12)
[2018-07-12] MEDS: PANTOPRAZOLE SODIUM 40 MG VIAL IVPUSH SCH (09:53)
[2018-07-12] MEDS: DOCUSATE SODIUM 100 MG CAPSULE (FP) PO SCH (09:53)
[2018-07-12] MEDS: SODIUM BICARBONATE 650 MG TABLET PO SCH ×2 (09:53→22:12)
[2018-07-12] MEDS: PHYTONADIONE 10 MG/1 ML AMP SQ SCH (09:54)
[2018-07-12] MEDS: LACTULOSE 20 GM/30 ML UDC (FOR ORAL USE ONLY) PO SCH ×2 (09:54→22:12)
[2018-07-12] MEDS ORDERED: PT OWN MED DRAWER 7, Y5N ONE ×3 (10:08→22:10)
[2018-07-12] MEDS: PROCHLORPERAZINE MALEATE 5 MG TABLET PO SCH (10:12)
--- NOTE | 2018-07-12 10:58 | PN ---
Physical Exam: HEME/ONC CONSULT SUBJECTIVE: Patient seen and examined at bed side this morning. No complaints. Denies chest pain, sob, cough, palpitation, abdominal pain, nausea or vomiting. No acute overnight events. OBJECTIVE: Vital Signs Period Temp Pulse Resp BP Sys/Hoffman Pulse Ox Last 24 Hr 97.5 F-98.5 F 99-114 17-19 102-121/54-70 95-98 GENERAL: Middle aged male, sitting comfortably in bed, Awake, alert, and oriented x1 today (slow in response), in no acute distress. HEAD: Normal with no signs of trauma. EYES: EOM intact, pallor +, no icterus. EARS, NOSE, THROAT: Ears normal. Moist mucous membranes. NECK: Supple. LUNGS: Breath sounds equal, clear to auscultation bilaterally. No wheezes, and no crackles. No accessory muscle use. HEART: Regular rate and rhythm, normal S1 and S2 without murmur. ABDOMEN: Has an ostomy bag for the bladder draining clear urine, Soft, nontender , no organomegaly. MUSCULOSKELETAL: Normal range of motion at all joints. No bony deformities or tenderness. No CVA tenderness. UPPER EXTREMITIES: 2+ pulses, warm, well-perfused. No cyanosis. No clubbing. Cap refill <2 seconds. No peripheral edema. LOWER EXTREMITIES: 2+ pulses, warm, well-perfused. No calf tenderness. No peripheral edema. NEUROLOGICAL: No facial droop, power 5/5 in all extremities. Cranial nerves II- XII intact. Normal speech but doesn't respond quickly (not at baseline). Gait not observed. PSYCHIATRIC: Cooperative. Good eye contact. Appropriate mood and affect. SKIN: Warm, dry, normal turgor, no rashes or lesions noted. Laboratory Results - last 24 hr 07/11/18 07/11/18 07/12/18 05:30 12:50 06:40 WBC RBC Hgb Hct MCV MCH MCHC RDW Plt Count MPV Absolute Neuts (auto) Neutrophils % Neutrophils % (Manual) 70.3 Band Neutrophils % 0.0 Lymphocytes % Lymphocytes % (Manual) 11.9 Monocytes % Monocytes % (Manual) 16 H D Eosinophils % Eosinophils % (Manual) 0.0 Basophils % Basophils % (Manual) 0.0 Myelocytes % (Man) 2 D Promyelocytes % (Man) 0 Blast Cells % (Manual) 0 Nucleated RBC % Metamyelocytes 0 D Hypochromia 1+ Platelet Estimate Normal Polychromasia 1+ Poikilocytosis 2+ Anisocytosis 0 Microcytosis 0 Macrocytosis 0 Tear Drop Cells 1+ Sodium 147 H Potassium 4.9 Chloride 122 H Carbon Dioxide 15 L Anion Gap 10 BUN 66 H Creatinine 1.9 H Creat Clearance w eGFR 36.72 Random Glucose 92 Calcium 8.4 L Phosphorus Magnesium Total Bilirubin AST ALT Alkaline Phosphatase Total Protein Albumin Random Vancomycin 12.68 07/12/18 07/12/18 06:40 06:40 WBC 15.3 H RBC 3.23 L Hgb 8.0 L Hct 26.0 L MCV 80.5 MCH 24.7 L MCHC 30.7 L RDW 17.3 H Plt Count 269 MPV 8.8 Absolute Neuts (auto) 6.1 Neutrophils % 39.7 L Neutrophils % (Manual) Band Neutrophils % Lymphocytes % 53.8 H Lymphocytes % (Manual) Monocytes % 6.2 Monocytes % (Manual) Eosinophils % 0.3 Eosinophils % (Manual) Basophils % 0.0 Basophils % (Manual) Myelocytes % (Man) Promyelocytes % (Man) Blast Cells % (Manual) Nucleated RBC % 0 Metamyelocytes Hypochromia Platelet Estimate Polychromasia Poikilocytosis Anisocytosis Microcytosis Macrocytosis Tear Drop Cells Sodium 143 Potassium 4.6 Chloride 117 H Carbon Dioxide 16 L Anion Gap 10 BUN 54 H Creatinine 2.0 H Creat Clearance w eGFR 34.61 Random Glucose 67 L Calcium 8.3 L Phosphorus 3.3 Magnesium 1.9 Total Bilirubin 5.9 H AST 206 H ALT 139 H Alkaline Phosphatase 560 H Total Protein 5.9 L Albumin 1.9 L Random Vancomycin Active Medications Generic Name Dose Route Start Last Admin Trade Name Freq PRN Reason Stop Dose Admin Acetaminophen 650 mg 07/11/18 15:40 Tylenol - PO Q6H PRN PAIN 6-10 Docusate Sodium 100 mg 07/12/18 10:00 07/12/18 09:53 Colace - PO Not Given DAILY [facility] Heparin Sodium (Porcine) 5,000 unit 07/11/18 22:00 07/12/18 06:37 Heparin - SQ Not Given TID LOREN Piperacillin Sod/Tazobactam 50 mls @ 100 mls/hr 07/11/18 21:00 07/12/18 09:54 Sod 2.25 gm/ Dextrose IVPB 100 mls/hr Q6H-IV LOREN Administration Protocol Sodium Chloride 1,000 mls @ 100 mls/hr 07/11/18 15:40 07/12/18 03:15 1/2 Normal Saline IV 100 mls/hr ASDIR LOREN Administration Lactulose 20 gm 07/11/18 22:00 07/12/18 09:54 Cephulac (Oral Use) PO 20 gm BID LOREN Administration Levetiracetam 500 mg 07/11/18 22:00 07/12/18 09:53 Keppra - PO 500 mg BID LOREN Administration Oxycodone HCl 10 mg 07/11/18 15:40 Roxicodone - PO Q6H PRN PAIN 6-10 Pantoprazole Sodium 40 mg 07/12/18 10:00 07/12/18 09:53 Protonix Iv IVPUSH 40 mg DAILY LOREN Administration Phytonadione 5 mg 07/11/18 18:40 07/12/18 09:54 Aqua Mephyton Injection - SQ 07/13/18 10:01 5 mg DAILY LOREN Administration Prochlorperazine Maleate 10 mg 07/12/18 10:00 07/12/18 10:12 Compazine - PO 10 mg DAILY LOREN Administration Sodium Bicarbonate 650 mg 07/11/18 22:00 07/12/18 09:53 Sodium Bicarbonate - PO 650 mg BID LOREN Administration Thiamine HCl 200 mg 07/11/18 22:00 07/12/18 06:39 Vitamin B1 Injection - IVPB 200 mg TID LOREN Administration Patient is a 57 year old male with significant past medical history of HTN; Bladder CA, last scraping in 2015; ?HIV, previous chart (2013) documents same but repeatedly denies any other medical problems beside HTN and bladder CA ; chronic neck and back pain, seizure. was brought to the ED with the chief complaint of feeling weak and tired since a couple of days. ASSESSMENT Altered mental status likely in HE Leukocytosis Hypertension but now hypotensive on admission Metastatic lung cancer Left renal cell carcinoma s/p resection (04/09) Bladder CA s/p resection in 2013 Seizure Normocytic anemia Hypernatremia DIVINA Transaminitis Heroin abuse on Methadone Cholelithiasis PLAN Leukocytosis WBC count 12.4--->15 today. Likely secondary to UTI. Urine culture positive for Gm neg. ON IV Zosyn Check CBC in AM Left renal cell carcinoma s/p resection (04/09); Bladder CA s/p resection (2013) now has metastatic cancer in Liver and lung CT abd/pelvis without contrast: Multiple pulmonary metastases. Hepatomegaly with heterogenous liver suspicious for multiple mets. Will try to get records from his oncologist regarding his past therapy Would recommend to do a brain MRI/Abd/Pelvis MRI To discuss further treatment and plan with the patient and his Plan: Vitamin K 5mg sq daily x 3days. For the possibility of IR guided biopsy. Normocytic anemia H/H 06/17 Doesn't need transfusion at this time. Transfuse if Hb is < 7gm/dl or if actively bleeding. Plan of care explained to the patient and his yesterday. They verbalized understanding. Case discussed with Dr. Mistry. Dispo: We will continue to follow the patient. Thank you for this consultative opportunity. Visit type - Emergency Visit Emergency Visit: Yes ED Registration Date: 07/10/18 Care time: The patient presented to the Emergency Department on the above date and was hospitalized for further evaluation of their emergent condition. - New Patient This patient is new to me today: No - Critical Care Critical Care patient: No
--- NOTE | 2018-07-12 11:03 | PN ---
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 Toxic-Metabolic Encephalopathy, most likely hepatic. Onc- Left renal cell carcinoma s/p resection (04/09); Bladder CA s/p resection (2013) now has metastatic cancer in Liver and lung CT abd/pelvis without contrast: Multiple pulmonary metastases. Hepatomegaly with heterogenous liver suspicious for multiple mets Selected Entries 07/11/18 07/11/18 07/11/18 02:00 04:08 06:00 Temperature 98.2 F 97.5 F L 98.6 F 07/11/18 07/11/18 07/11/18 12:12 18:06 22:00 Temperature 98.2 F 97.5 F L 98.2 F 07/12/18 07/12/18 02:00 06:00 Temperature 98.4 F 98.5 F Laboratory Tests 07/10/18 07/11/18 07/12/18 04:27 05:30 06:40 WBC 12.6 H 12.4 H 15.3 H Soft diet/thin liquids ordered. Pt arousable, falls asleep intermittently during assessment. Oriented to age, "sjrh" for "infection", "trump", not date. Pt reportedly not eating anything. Swallow reassessed- Brisk swallow. No signs of aspiration. Pt c/o "no taste or appetite" Pt agreed to trying a turkey sandwich which I ordered for lunch.
[2018-07-12 11:10] LABS: ANISOCYTOSIS 2+; MACROCYTOSIS 1+; PLATELET ESTIMATE NORMAL; TARGET CELLS 2+
--- NOTE | 2018-07-12 11:21 | PN ---
Progress Note, Physician Chief Complaint: patient seen and examiend to get MRI of abdomen and mary s/p 2 untis prbc now h.h improved - Current Medication List Current Medications: Active Medications Acetaminophen (Tylenol -) 650 mg PO Q6H PRN PRN Reason: PAIN 6-10 Docusate Sodium (Colace -) 100 mg PO DAILY [facility] Last Admin: 07/12/18 09:53 Dose: Not Given Heparin Sodium (Porcine) (Heparin -) 5,000 unit SQ TID [facility] Last Admin: 07/12/18 06:37 Dose: Not Given Piperacillin Sod/Tazobactam (Sod 2.25 gm/ Dextrose) 50 mls @ 100 mls/hr IVPB Q6H-IV LOREN; Protocol Last Admin: 07/12/18 09:54 Dose: 100 mls/hr Sodium Chloride (1/2 Normal Saline) 1,000 mls @ 100 mls/hr IV ASDIR [facility] Last Admin: 07/12/18 03:15 Dose: 100 mls/hr Lactulose (Cephulac (Oral Use)) 20 gm PO BID [facility] Last Admin: 07/12/18 09:54 Dose: 20 gm Levetiracetam (Keppra -) 500 mg PO BID [facility] Last Admin: 07/12/18 09:53 Dose: 500 mg Oxycodone HCl (Roxicodone -) 10 mg PO Q6H PRN PRN Reason: PAIN 6-10 Pantoprazole Sodium (Protonix Iv) 40 mg IVPUSH DAILY [facility] Last Admin: 07/12/18 09:53 Dose: 40 mg Phytonadione (Aqua Mephyton Injection -) 5 mg SQ DAILY [facility] Stop: 07/13/18 10:01 Last Admin: 07/12/18 09:54 Dose: 5 mg Prochlorperazine Maleate (Compazine -) 10 mg PO DAILY [facility] Last Admin: 07/12/18 10:12 Dose: 10 mg Sodium Bicarbonate (Sodium Bicarbonate -) 650 mg PO BID [facility] Last Admin: 07/12/18 09:53 Dose: 650 mg Thiamine HCl (Vitamin B1 Injection -) 200 mg IVPB TID [facility] Last Admin: 07/12/18 06:39 Dose: 200 mg - Objective Vital Signs: Vital Signs Temperature 98.5 F 07/12/18 06:00 Pulse Rate 100 H 07/12/18 09:00 Respiratory Rate 18 07/12/18 09:00 Blood Pressure 112/66 07/12/18 09:00 O2 Sat by Pulse Oximetry (%) 95 07/12/18 09:00 Constitutional: Yes: Calm Cardiovascular: Yes: Regular Rate and Rhythm, S1, S2 Respiratory: Yes: CTA Bilaterally Gastrointestinal: Yes: Normal Bowel Sounds, Soft Edema: No Neurological: Yes: Alert (able to tell me his name) Labs: CBC, BMP 07/12/18 06:40 07/12/18 06:40 INR, PTT INR 1.52 (0.83-1.09) H 07/10/18 04:27 Problem List - Problems (1) Change in mental status Assessment/Plan: mental status much improved from admission -toxic metabolic encephalopathy secondary to UTI on iv zosyn Microbiology 07/10/18 04:00 Urine - Urine - Catheterized Urine Culture - Preliminary Non Lactose Fermenting Gnb Group D Strep Or Entero Coccus appreciate neurology note ammonia level noted on thiamine Code(s): R41.82 - ALTERED MENTAL STATUS, UNSPECIFIED (2) Metastasis from bladder cancer Assessment/Plan: lung mets and liver mets oncology evaluation- noted to get MRI of abdomen and pelvis and IR guided biopsy as well to get vitamin K to bring down INR for the biopsy dvt ppx Code(s): C79.9 - SECONDARY MALIGNANT NEOPLASM OF UNSPECIFIED SITE; C67.9 - MALIGNANT NEOPLASM OF BLADDER, UNSPECIFIED (3) Acute renal failure Assessment/Plan: ivf hydration po bicarb renal consult appricated Code(s): N17.9 - ACUTE KIDNEY FAILURE, UNSPECIFIED (4) Elevated LFTs Assessment/Plan: secondary to liver mets- plan for IR guided biopsy and MRI of abdomen and pelvis and to get vitamin K to bring down INR prior to biopsy oncology and gi eval noted Code(s): R94.5 - ABNORMAL RESULTS OF LIVER FUNCTION STUDIES (5) Hyperkalemia Assessment/Plan: kayxelate repeat bmp note K is improved Code(s): E87.5 - HYPERKALEMIA (6) Lethargy Assessment/Plan: infectious vs ? mets check mri neurology eval noted broad spectrum abx for UTI Code(s): R53.83 - OTHER FATIGUE (7) Leukocytosis Assessment/Plan: could be secondary to UTI vs tumor Code(s): D72.829 - ELEVATED WHITE BLOOD CELL COUNT, UNSPECIFIED
--- NOTE | 2018-07-12 12:13 | PN ---
Progress Note, Physician History of Present Illness: PULMONARY AWAKE,COMFORTABLE,-RESP DISTRESS - Current Medication List Current Medications: Active Medications Acetaminophen (Tylenol -) 650 mg PO Q6H PRN PRN Reason: PAIN 6-10 Docusate Sodium (Colace -) 100 mg PO DAILY [facility] Last Admin: 07/12/18 09:53 Dose: Not Given Heparin Sodium (Porcine) (Heparin -) 5,000 unit SQ TID [facility] Last Admin: 07/12/18 06:37 Dose: Not Given Piperacillin Sod/Tazobactam (Sod 2.25 gm/ Dextrose) 50 mls @ 100 mls/hr IVPB Q6H-IV [facility]; Protocol Last Admin: 07/12/18 09:54 Dose: 100 mls/hr Sodium Chloride (1/2 Normal Saline) 1,000 mls @ 100 mls/hr IV ASDIR [facility] Last Admin: 07/12/18 03:15 Dose: 100 mls/hr Lactulose (Cephulac (Oral Use)) 20 gm PO BID [facility] Last Admin: 07/12/18 09:54 Dose: 20 gm Levetiracetam (Keppra -) 500 mg PO BID [facility] Last Admin: 07/12/18 09:53 Dose: 500 mg Oxycodone HCl (Roxicodone -) 10 mg PO Q6H PRN PRN Reason: PAIN 6-10 Pantoprazole Sodium (Protonix Iv) 40 mg IVPUSH DAILY [facility] Last Admin: 07/12/18 09:53 Dose: 40 mg Phytonadione (Aqua Mephyton Injection -) 5 mg SQ DAILY [facility] Stop: 07/13/18 10:01 Last Admin: 07/12/18 09:54 Dose: 5 mg Prochlorperazine Maleate (Compazine -) 10 mg PO DAILY [facility] Last Admin: 07/12/18 10:12 Dose: 10 mg Sodium Bicarbonate (Sodium Bicarbonate -) 650 mg PO BID [facility] Last Admin: 07/12/18 09:53 Dose: 650 mg Thiamine HCl (Vitamin B1 Injection -) 200 mg IVPB TID [facility] Stop: 07/14/18 21:59 Last Admin: 07/12/18 06:39 Dose: 200 mg - Objective Vital Signs: Vital Signs Temperature 98.5 F 07/12/18 06:00 Pulse Rate 100 H 07/12/18 09:00 Respiratory Rate 18 07/12/18 09:00 Blood Pressure 112/66 07/12/18 09:00 O2 Sat by Pulse Oximetry (%) 95 07/12/18 09:00 Constitutional: Yes: Calm, Thin Eyes: Yes: WNL HENT: Yes: WNL Neck: Yes: WNL Cardiovascular: Yes: Regular Rate and Rhythm, S1, S2 Respiratory: Yes: CTA Bilaterally Gastrointestinal: Yes: Normal Bowel Sounds, Soft Extremities: Yes: WNL Edema: No Labs: CBC, BMP 07/12/18 06:40 07/12/18 06:40 INR, PTT INR 1.52 (0.83-1.09) H 07/10/18 04:27 Problem List - Problems (1) Pulmonary nodules/lesions, multiple Code(s): R91.8 - OTHER NONSPECIFIC ABNORMAL FINDING OF LUNG FIELD (2) Acute renal failure Code(s): N17.9 - ACUTE KIDNEY FAILURE, UNSPECIFIED (3) Change in mental status Code(s): R41.82 - ALTERED MENTAL STATUS, UNSPECIFIED (4) Hypotension Code(s): I95.9 - HYPOTENSION, UNSPECIFIED (5) Metastasis from bladder cancer Code(s): C79.9 - SECONDARY MALIGNANT NEOPLASM OF UNSPECIFIED SITE; C67.9 - MALIGNANT NEOPLASM OF BLADDER, UNSPECIFIED (6) UTI (urinary tract infection) Code(s): N39.0 - URINARY TRACT INFECTION, SITE NOT SPECIFIED Assessment/Plan ASSESSMENT AND PLAN: UTI S/P Severe Sepsis Acute Kidney Injury Metabolic Acidosis Metastatic Bladder Anemia Seizure Disorder h/o HTN multiple pulmonary nodules - continue IVF - continue antibiotics - monitor urine output, creatinine - trend LFTs DR METCALF
[2018-07-12] MEDS ORDERED: LORazepam 0.5 MG TABLET PO ONE ×2 (14:50→20:30)
--- NOTE | 2018-07-12 15:42 | PN ---
Progress Note, Physician History of Present Illness: Pt seen and examined at bedside. He denies shortness of breath. He remains confused. - Current Medication List Current Medications: Active Medications Acetaminophen (Tylenol -) 650 mg PO Q6H PRN PRN Reason: PAIN 6-10 Docusate Sodium (Colace -) 100 mg PO DAILY [facility] Last Admin: 07/12/18 09:53 Dose: Not Given Heparin Sodium (Porcine) (Heparin -) 5,000 unit SQ TID [facility] Last Admin: 07/12/18 06:37 Dose: Not Given Piperacillin Sod/Tazobactam (Sod 2.25 gm/ Dextrose) 50 mls @ 100 mls/hr IVPB Q6H-IV [facility]; Protocol Last Admin: 07/12/18 09:54 Dose: 100 mls/hr Sodium Chloride (1/2 Normal Saline) 1,000 mls @ 100 mls/hr IV ASDIR [facility] Last Admin: 07/12/18 03:15 Dose: 100 mls/hr Lactulose (Cephulac (Oral Use)) 20 gm PO BID [facility] Last Admin: 07/12/18 09:54 Dose: 20 gm Levetiracetam (Keppra -) 500 mg PO BID [facility] Last Admin: 07/12/18 09:53 Dose: 500 mg Oxycodone HCl (Roxicodone -) 10 mg PO Q6H PRN PRN Reason: PAIN 6-10 Pantoprazole Sodium (Protonix Iv) 40 mg IVPUSH DAILY [facility] Last Admin: 07/12/18 09:53 Dose: 40 mg Phytonadione (Aqua Mephyton Injection -) 5 mg SQ DAILY [facility] Stop: 07/13/18 10:01 Last Admin: 07/12/18 09:54 Dose: 5 mg Prochlorperazine Maleate (Compazine -) 10 mg PO DAILY [facility] Last Admin: 07/12/18 10:12 Dose: 10 mg Sodium Bicarbonate (Sodium Bicarbonate -) 650 mg PO BID [facility] Last Admin: 07/12/18 09:53 Dose: 650 mg Thiamine HCl (Vitamin B1 Injection -) 200 mg IVPB TID [facility] Stop: 07/14/18 21:59 Last Admin: 07/12/18 06:39 Dose: 200 mg - Objective Vital Signs: Vital Signs Temperature 98.5 F 07/12/18 13:26 Pulse Rate 101 H 07/12/18 13:26 Respiratory Rate 22 07/12/18 13:26 Blood Pressure 111/66 07/12/18 13:26 O2 Sat by Pulse Oximetry (%) 95 07/12/18 09:00 Constitutional: Yes: Calm Eyes: Yes: Conjunctiva Clear Cardiovascular: Yes: S1, S2 Respiratory: Yes: CTA Bilaterally Gastrointestinal: Yes: Normal Bowel Sounds, Soft Genitourinary: Yes: Other (ileal conduit) Musculoskeletal: Yes: WNL Edema: No Neurological: Yes: Confusion Labs: CBC, BMP 07/12/18 06:40 07/12/18 06:40 INR, PTT INR 1.52 (0.83-1.09) H 07/10/18 04:27 Problem List - Problems (1) Acute renal failure Code(s): N17.9 - ACUTE KIDNEY FAILURE, UNSPECIFIED (2) Change in mental status Code(s): R41.82 - ALTERED MENTAL STATUS, UNSPECIFIED (3) Hyperkalemia Code(s): E87.5 - HYPERKALEMIA (4) Hypotension Code(s): I95.9 - HYPOTENSION, UNSPECIFIED (5) Lethargy Code(s): R53.83 - OTHER FATIGUE Assessment/Plan Current Medications Generic Name Dose Route Start Last Admin Trade Name Freq PRN Reason Stop Dose Admin Acetaminophen 650 mg 07/11/18 15:40 Tylenol - PO Q6H PRN PAIN 6-10 Docusate Sodium 100 mg 07/12/18 10:00 07/12/18 09:53 Colace - PO Not Given DAILY [facility] Heparin Sodium (Porcine) 5,000 unit 07/11/18 22:00 07/12/18 06:37 Heparin - SQ Not Given TID [facility] Piperacillin Sod/Tazobactam 50 mls @ 100 mls/hr 07/11/18 21:00 07/12/18 09:54 Sod 2.25 gm/ Dextrose IVPB 100 mls/hr Q6H-IV [facility] Administration Protocol Sodium Chloride 1,000 mls @ 100 mls/hr 07/11/18 15:40 07/12/18 03:15 1/2 Normal Saline IV 100 mls/hr ASDIR [facility] Administration Lactulose 20 gm 07/11/18 22:00 07/12/18 09:54 Cephulac (Oral Use) PO 20 gm BID [facility] Administration Levetiracetam 500 mg 07/11/18 22:00 07/12/18 09:53 Keppra - PO 500 mg BID [facility] Administration Oxycodone HCl 10 mg 07/11/18 15:40 Roxicodone - PO Q6H PRN PAIN 6-10 Pantoprazole Sodium 40 mg 07/12/18 10:00 07/12/18 09:53 Protonix Iv IVPUSH 40 mg DAILY [facility] Administration Phytonadione 5 mg 07/11/18 18:40 07/12/18 09:54 Aqua Mephyton Injection - SQ 07/13/18 10:01 5 mg DAILY [facility] Administration Prochlorperazine Maleate 10 mg 07/12/18 10:00 07/12/18 10:12 Compazine - PO 10 mg DAILY [facility] Administration Sodium Bicarbonate 650 mg 07/11/18 22:00 07/12/18 09:53 Sodium Bicarbonate - PO 650 mg BID [facility] Administration Thiamine HCl 200 mg 07/11/18 22:00 07/12/18 15:39 Vitamin B1 Injection - IVPB 07/14/18 21:59 200 mg TID [facility] Administration Impression 1. DIVINA 2. CKD 3. bladder cancer 4. hx left nephrectomy 5. hypotension 6. altered mental status 7. metastatic disease 8. hyperkalemia improving 9. hx of htn although pt now hypotensive 10. hypotension 11. anemia 12. sepsis 13. epilepsy Plan - renal function stablized - potassium normal range - will decrease rate of fluid - cont po bicarb - follow up radiology Dr Valdez
[2018-07-13] MEDS ORDERED: DEXTROSE 5%-WATER - 50 ML IVPB ONE ×4 (01:46→21:47)
[2018-07-13] MEDS ORDERED: PIPERACILLIN/TAZOBACTAM 2.25 GM VIAL IVPB ONE ×4 (01:46→21:47)
[2018-07-13] MEDS: PIPERACILLIN/TAZOB 2.25 GM 2.25 GM in DEXTROSE 5%-WATER - 50 ML IVPB SCH ×4 (03:23→21:59)
[2018-07-13] MEDS: HEPARIN NA (PORCINE) 5,000 UNITS/ML 1ML VIAL SQ SCH ×3 (07:56→21:59)
[2018-07-13] MEDS: THIAMINE HCL 200 MG/2 ML VIAL IVPB SCH ×3 (07:56→22:00)
[2018-07-13 08:45] LABS: INR 1.59 (0.83-1.09)
[2018-07-13 08:50] LABS: ALBUMIN 1.9 g/dl (3.4-5.0); ALK PHOS 556 U/L (45-117); ANION GAP 14 MMOL/L (8-16); BILIRUBIN,TOTAL 7.1 mg/dL (0.2-1); BLOOD UREA NITROGEN 48 mg/dL (7-18); CALCIUM 9.6 mg/dL (8.5-10.1); CHLORIDE 120 mmol/L (98-107); CO2 11 mmol/L (21-32); CREATININE 1.7 mg/dL (0.55-1.3); POTASSIUM 5.2 mmol/L (3.5-5.1); SGOT/AST 197 U/L (15-37); SGPT/ALT 136 U/L (13-61); SODIUM 145 mmol/L (136-145); TOT PROT 5.9 g/dl (6.4-8.2)
[2018-07-13 08:52] LABS: GLUCOSE,RANDOM 49 mg/dL (74-106)
[2018-07-13] MEDS ORDERED: PT OWN MED DRAWER 7, Y5N ONE ×3 (10:46→21:47)
[2018-07-13] MEDS: levETIRAcetam 500 MG TABLET (FP) PO SCH ×2 (10:50→21:58)
[2018-07-13] MEDS: PANTOPRAZOLE SODIUM 40 MG VIAL IVPUSH SCH (10:50)
[2018-07-13] MEDS: SODIUM BICARBONATE 650 MG TABLET PO SCH ×2 (10:50→21:58)
[2018-07-13] MEDS: LACTULOSE 20 GM/30 ML UDC (FOR ORAL USE ONLY) PO SCH ×2 (10:50→21:57)
[2018-07-13] MEDS: PHYTONADIONE 10 MG/1 ML AMP SQ SCH (10:51)
[2018-07-13] MEDS: DOCUSATE SODIUM 100 MG CAPSULE (FP) PO SCH (10:51)
[2018-07-13] MEDS: PROCHLORPERAZINE MALEATE 5 MG TABLET PO SCH (10:52)
[2018-07-13] MEDS: oxyCODONE HCL 5 MG TABLET PO PRN ×2 (11:51→21:57)
[2018-07-13] MEDS: SODIUM BICARBONATE 8.4% - 50 MEQ in DEXTROSE 5%-0.45% SALINE 950 ML IV SCH (11:54)
--- NOTE | 2018-07-13 12:22 | PN ---
Progress Note, Physician History of Present Illness: PULMONARY AWAKE,CONFUSED,-RESP DISTRESS - Current Medication List Current Medications: Active Medications Acetaminophen (Tylenol -) 650 mg PO Q6H PRN PRN Reason: PAIN 6-10 Docusate Sodium (Colace -) 100 mg PO DAILY [facility] Last Admin: 07/13/18 10:51 Dose: 100 mg Heparin Sodium (Porcine) (Heparin -) 5,000 unit SQ TID [facility] Last Admin: 07/13/18 07:56 Dose: 5,000 unit Piperacillin Sod/Tazobactam (Sod 2.25 gm/ Dextrose) 50 mls @ 100 mls/hr IVPB Q6H-IV [facility]; Protocol Last Admin: 07/13/18 09:03 Dose: 100 mls/hr Sodium Bicarbonate 50 meq/ (Dextrose/Sodium Chloride) 1,000 mls @ 100 mls/hr IV Q10H [facility] Last Admin: 07/13/18 11:54 Dose: 100 mls/hr Lactulose (Cephulac (Oral Use)) 20 gm PO BID [facility] Last Admin: 07/13/18 10:50 Dose: 20 gm Levetiracetam (Keppra -) 500 mg PO BID [facility] Last Admin: 07/13/18 10:50 Dose: 500 mg Oxycodone HCl (Roxicodone -) 10 mg PO Q6H PRN PRN Reason: PAIN 6-10 Last Admin: 07/13/18 11:51 Dose: 10 mg Pantoprazole Sodium (Protonix Iv) 40 mg IVPUSH DAILY [facility] Last Admin: 07/13/18 10:50 Dose: 40 mg Prochlorperazine Maleate (Compazine -) 10 mg PO DAILY [facility] Last Admin: 07/13/18 10:52 Dose: 10 mg Sodium Bicarbonate (Sodium Bicarbonate -) 650 mg PO BID [facility] Last Admin: 07/13/18 10:50 Dose: 650 mg Thiamine HCl (Vitamin B1 Injection -) 200 mg IVPB TID [facility] Stop: 07/14/18 21:59 Last Admin: 07/13/18 07:56 Dose: 200 mg - Objective Vital Signs: Vital Signs Temperature 97.8 F 07/13/18 09:00 Pulse Rate 104 H 07/13/18 09:00 Respiratory Rate 20 07/13/18 09:00 Blood Pressure 130/72 07/13/18 09:00 O2 Sat by Pulse Oximetry (%) 95 07/12/18 21:00 Constitutional: Yes: Calm, Thin Eyes: Yes: WNL HENT: Yes: WNL Neck: Yes: WNL Cardiovascular: Yes: Regular Rate and Rhythm, S1, S2 Respiratory: Yes: Diminished Gastrointestinal: Yes: Normal Bowel Sounds, Soft Extremities: Yes: WNL Edema: No Labs: CBC, BMP 07/12/18 06:40 07/13/18 07:38 INR, PTT INR 1.59 (0.83-1.09) H 07/13/18 07:38 Problem List - Problems (1) Pulmonary nodules/lesions, multiple Code(s): R91.8 - OTHER NONSPECIFIC ABNORMAL FINDING OF LUNG FIELD (2) Acute renal failure Code(s): N17.9 - ACUTE KIDNEY FAILURE, UNSPECIFIED (3) Change in mental status Code(s): R41.82 - ALTERED MENTAL STATUS, UNSPECIFIED (4) Hypotension Code(s): I95.9 - HYPOTENSION, UNSPECIFIED (5) Metastasis from bladder cancer Code(s): C79.9 - SECONDARY MALIGNANT NEOPLASM OF UNSPECIFIED SITE; C67.9 - MALIGNANT NEOPLASM OF BLADDER, UNSPECIFIED (6) UTI (urinary tract infection) Code(s): N39.0 - URINARY TRACT INFECTION, SITE NOT SPECIFIED Assessment/Plan ASSESSMENT AND PLAN: UTI S/P Severe Sepsis Acute Kidney Injury improving Metabolic Acidosis Metastatic Bladder Anemia Seizure Disorder h/o HTN multiple pulmonary nodules thrombocytopenia - continue IVF - continue antibiotics - monitor urine output, creatinine - trend LFTs - monitir lytes,cbc,plt ct DR METCALF
--- NOTE | 2018-07-13 12:41 | PN ---
Progress Note (short form) - Note Progress Note: MRI findings noted. No CBD, or other major channel, potentially manageable obstruction noted.
[2018-07-13] MEDS ORDERED: SODIUM POLYSTYRENE SULFONATE 15 GM/60 ML BOTTLE PO ONE (13:12)
--- NOTE | 2018-07-13 13:14 | PN ---
Progress Note, Physician Chief Complaint: patient seen and examiend low bgm noted - Current Medication List Current Medications: Active Medications Acetaminophen (Tylenol -) 650 mg PO Q6H PRN PRN Reason: PAIN 6-10 Docusate Sodium (Colace -) 100 mg PO DAILY [facility] Last Admin: 07/13/18 10:51 Dose: 100 mg Heparin Sodium (Porcine) (Heparin -) 5,000 unit SQ TID [facility] Last Admin: 07/13/18 07:56 Dose: 5,000 unit Piperacillin Sod/Tazobactam (Sod 2.25 gm/ Dextrose) 50 mls @ 100 mls/hr IVPB Q6H-IV [facility]; Protocol Last Admin: 07/13/18 09:03 Dose: 100 mls/hr Sodium Bicarbonate 50 meq/ (Dextrose/Sodium Chloride) 1,000 mls @ 100 mls/hr IV Q10H [facility] Last Admin: 07/13/18 11:54 Dose: 100 mls/hr Lactulose (Cephulac (Oral Use)) 20 gm PO BID [facility] Last Admin: 07/13/18 10:50 Dose: 20 gm Levetiracetam (Keppra -) 500 mg PO BID [facility] Last Admin: 07/13/18 10:50 Dose: 500 mg Oxycodone HCl (Roxicodone -) 10 mg PO Q6H PRN PRN Reason: PAIN 6-10 Last Admin: 07/13/18 11:51 Dose: 10 mg Pantoprazole Sodium (Protonix Iv) 40 mg IVPUSH DAILY [facility] Last Admin: 07/13/18 10:50 Dose: 40 mg Prochlorperazine Maleate (Compazine -) 10 mg PO DAILY [facility] Last Admin: 07/13/18 10:52 Dose: 10 mg Sodium Bicarbonate (Sodium Bicarbonate -) 650 mg PO BID [facility] Last Admin: 07/13/18 10:50 Dose: 650 mg Thiamine HCl (Vitamin B1 Injection -) 200 mg IVPB TID [facility] Stop: 07/14/18 21:59 Last Admin: 07/13/18 07:56 Dose: 200 mg - Objective Vital Signs: Vital Signs Temperature 97.8 F 07/13/18 09:00 Pulse Rate 104 H 07/13/18 09:00 Respiratory Rate 20 07/13/18 09:00 Blood Pressure 130/72 07/13/18 09:00 O2 Sat by Pulse Oximetry (%) 95 07/12/18 21:00 Constitutional: Yes: Calm, Thin Cardiovascular: Yes: Regular Rate and Rhythm, S1, S2 Respiratory: Yes: Diminished Gastrointestinal: Yes: Soft Edema: No Neurological: Yes: Other (responds to his name awake) Labs: CBC, BMP 07/12/18 06:40 07/13/18 07:38 INR, PTT INR 1.59 (0.83-1.09) H 07/13/18 07:38 Problem List - Problems (1) Change in mental status Assessment/Plan: mental status much improved from admission -toxic metabolic encephalopathy secondary to UTI on iv zosyn Microbiology 07/10/18 04:00 Urine - Urine - Catheterized Urine Culture - Preliminary Non Lactose Fermenting Gnb Group D Strep Or Entero Coccus appreciate neurology note ammonia level noted on thiamine Microbiology 07/10/18 04:00 Urine - Urine - Catheterized Urine Culture - Final Escherichia Coli Enterococcus Faecalis Code(s): R41.82 - ALTERED MENTAL STATUS, UNSPECIFIED (2) Metastasis from bladder cancer Assessment/Plan: lung mets and liver mets oncology evaluation- noted to get MRI of abdomen and pelvis and IR guided biopsy as well to get vitamin K to bring down INR for the biopsy dvt ppx Code(s): C79.9 - SECONDARY MALIGNANT NEOPLASM OF UNSPECIFIED SITE; C67.9 - MALIGNANT NEOPLASM OF BLADDER, UNSPECIFIED (3) Acute renal failure Assessment/Plan: ivf hydration d5/1/2 NS with bicarb renal function improving po bicarb renal consult appricated hyperkalemia will give kayzxelate Code(s): N17.9 - ACUTE KIDNEY FAILURE, UNSPECIFIED (4) Elevated LFTs Assessment/Plan: secondary to liver mets- plan for IR guided biopsy and MRI of abdomen and pelvis and to get vitamin K to bring down INR prior to biopsy oncology and gi eval noted Code(s): R94.5 - ABNORMAL RESULTS OF LIVER FUNCTION STUDIES (5) Hyperkalemia Assessment/Plan: kayxelate repeat bmp note K is improved Code(s): E87.5 - HYPERKALEMIA (6) Lethargy Assessment/Plan: neurology eval noted broad spectrum abx for UTI Microbiology 07/10/18 04:00 Urine - Urine - Catheterized Urine Culture - Final Escherichia Coli Enterococcus Faecalis Code(s): R53.83 - OTHER FATIGUE (7) Leukocytosis Assessment/Plan: could be secondary to UTI vs tumor will monitor labs repeat in AM Code(s): D72.829 - ELEVATED WHITE BLOOD CELL COUNT, UNSPECIFIED
--- NOTE | 2018-07-13 14:11 | PN ---
Progress Note, NEONATAL INTENSIVE CARE NURSE - Note Progress Note: Selected Entries 07/12/18 07/12/18 07/12/18 02:00 06:00 11:59 Breakfast 25% Supper Temperature 98.4 F 98.5 F 07/12/18 07/12/18 07/12/18 13:26 18:30 20:26 Breakfast Supper 25% Temperature 98.5 F 98.2 F 98.3 F 07/13/18 07/13/18 07/13/18 06:00 09:00 11:37 Breakfast 25% Supper Temperature 97.7 F 97.8 F
[2018-07-13] MEDS: LORazepam 0.5 MG TABLET PO ONE ×2 (14:51→15:03)
--- NOTE | 2018-07-13 15:18 | PN ---
Progress Note, Physician History of Present Illness: Pt seen and examined at bedside. He has had very poor PO intake. - Current Medication List Current Medications: Active Medications Acetaminophen (Tylenol -) 650 mg PO Q6H PRN PRN Reason: PAIN 6-10 Docusate Sodium (Colace -) 100 mg PO DAILY [facility] Last Admin: 07/13/18 10:51 Dose: 100 mg Heparin Sodium (Porcine) (Heparin -) 5,000 unit SQ TID [facility] Last Admin: 07/13/18 07:56 Dose: 5,000 unit Piperacillin Sod/Tazobactam (Sod 2.25 gm/ Dextrose) 50 mls @ 100 mls/hr IVPB Q6H-IV [facility]; Protocol Last Admin: 07/13/18 09:03 Dose: 100 mls/hr Sodium Bicarbonate 50 meq/ (Dextrose/Sodium Chloride) 1,000 mls @ 100 mls/hr IV Q10H [facility] Last Admin: 07/13/18 11:54 Dose: 100 mls/hr Lactulose (Cephulac (Oral Use)) 20 gm PO BID [facility] Last Admin: 07/13/18 10:50 Dose: 20 gm Levetiracetam (Keppra -) 500 mg PO BID [facility] Last Admin: 07/13/18 10:50 Dose: 500 mg Oxycodone HCl (Roxicodone -) 10 mg PO Q6H PRN PRN Reason: PAIN 6-10 Last Admin: 07/13/18 11:51 Dose: 10 mg Pantoprazole Sodium (Protonix Iv) 40 mg IVPUSH DAILY [facility] Last Admin: 07/13/18 10:50 Dose: 40 mg Prochlorperazine Maleate (Compazine -) 10 mg PO DAILY [facility] Last Admin: 07/13/18 10:52 Dose: 10 mg Sodium Bicarbonate (Sodium Bicarbonate -) 650 mg PO BID [facility] Last Admin: 07/13/18 10:50 Dose: 650 mg Thiamine HCl (Vitamin B1 Injection -) 200 mg IVPB TID [facility] Stop: 07/14/18 21:59 Last Admin: 07/13/18 07:56 Dose: 200 mg - Objective Vital Signs: Vital Signs Temperature 97.8 F 07/13/18 09:00 Pulse Rate 104 H 07/13/18 09:00 Respiratory Rate 20 07/13/18 09:00 Blood Pressure 130/72 07/13/18 09:00 O2 Sat by Pulse Oximetry (%) 95 07/12/18 21:00 Constitutional: Yes: Mild Distress Eyes: Yes: Conjunctiva Clear HENT: Yes: Atraumatic Cardiovascular: Yes: S1, S2 Respiratory: Yes: On Nasal O2 Gastrointestinal: Yes: Soft Genitourinary: Yes: Other (ileostomy) Musculoskeletal: Yes: Muscle Weakness Edema: No Neurological: Yes: Oriented Labs: CBC, BMP 07/12/18 06:40 07/13/18 07:38 INR, PTT INR 1.59 (0.83-1.09) H 07/13/18 07:38 Problem List - Problems (1) Acute renal failure Code(s): N17.9 - ACUTE KIDNEY FAILURE, UNSPECIFIED (2) Change in mental status Code(s): R41.82 - ALTERED MENTAL STATUS, UNSPECIFIED (3) Hyperkalemia Code(s): E87.5 - HYPERKALEMIA (4) Hypotension Code(s): I95.9 - HYPOTENSION, UNSPECIFIED (5) Lethargy Code(s): R53.83 - OTHER FATIGUE Assessment/Plan Current Medications Generic Name Dose Route Start Last Admin Trade Name Freq PRN Reason Stop Dose Admin Acetaminophen 650 mg 07/11/18 15:40 Tylenol - PO Q6H PRN PAIN 6-10 Docusate Sodium 100 mg 07/12/18 10:00 07/13/18 10:51 Colace - PO 100 mg DAILY [facility] Administration Heparin Sodium (Porcine) 5,000 unit 07/11/18 22:00 07/13/18 07:56 Heparin - SQ 5,000 unit TID [facility] Administration Piperacillin Sod/Tazobactam 50 mls @ 100 mls/hr 07/11/18 21:00 07/13/18 09:03 Sod 2.25 gm/ Dextrose IVPB 100 mls/hr Q6H-IV [facility] Administration Protocol Sodium Bicarbonate 50 meq/ 1,000 mls @ 100 mls/hr 07/13/18 10:00 07/13/18 11: 54 Dextrose/Sodium Chloride IV 100 mls/hr Q10H [facility] Administration Lactulose 20 gm 07/11/18 22:00 07/13/18 10:50 Cephulac (Oral Use) PO 20 gm BID [facility] Administration Levetiracetam 500 mg 07/11/18 22:00 07/13/18 10:50 Keppra - PO 500 mg BID [facility] Administration Oxycodone HCl 10 mg 07/11/18 15:40 07/13/18 11:51 Roxicodone - PO 10 mg Q6H PRN Administration PAIN 6-10 Pantoprazole Sodium 40 mg 07/12/18 10:00 07/13/18 10:50 Protonix Iv IVPUSH 40 mg DAILY [facility] Administration Prochlorperazine Maleate 10 mg 07/12/18 10:00 07/13/18 10:52 Compazine - PO 10 mg DAILY [facility] Administration Sodium Bicarbonate 650 mg 07/11/18 22:00 07/13/18 10:50 Sodium Bicarbonate - PO 650 mg BID [facility] Administration Thiamine HCl 200 mg 07/11/18 22:00 07/13/18 07:56 Vitamin B1 Injection - IVPB 07/14/18 21:59 200 mg TID [facility] Administration Impression 1. DIVINA 2. CKD 3. bladder cancer 4. hx left nephrectomy 5. hypotension 6. altered mental status 7. metastatic disease 8. hyperkalemia improving 9. hx of htn although pt now hypotensive 10. hypotension 11. anemia 12. sepsis 13. epilepsy Plan - changed fluids to d5 1/2ns with sodium bicarb - cont with hydration - follow up brain MRU - oncology follow up - monitor lytes - follow up radiology Dr Valdez
--- NOTE | 2018-07-13 21:14 | PN ---
Progress Note (short form) - Note Progress Note: Patient seen and examined lethargic Arousable Last Vital Signs Temp Pulse Resp BP Pulse Ox 97.8 F 122 H 16 143/78 98 07/13/18 22:04 07/13/18 22:04 07/13/18 22:04 07/13/18 22:04 07/13/18 21:00 Cor: RSR, No murmurs, No gallops Lungs: Clear to P&A Abd: Soft, Normal bowel sounds, No organomegaly Ext:No significant edema Skin: No rashes, Integument intact Abnormal Lab Results 07/13/18 07/13/18 07:38 07:38 PT with INR 18.00 H INR 1.59 H Potassium 5.2 H Chloride 120 H Carbon Dioxide 11 L BUN 48 H Creatinine 1.7 H Random Glucose 49 L* Total Bilirubin 7.1 H AST 197 H ALT 136 H Alkaline Phosphatase 556 H Total Protein 5.9 L Albumin 1.9 L Active Medications Generic Name Dose Route Start Last Admin Trade Name Freq PRN Reason Stop Dose Admin Acetaminophen 650 mg 07/11/18 15:40 Tylenol - PO Q6H PRN PAIN 6-10 Docusate Sodium 100 mg 07/12/18 10:00 07/13/18 10:51 Colace - PO 100 mg DAILY [facility] Administration Heparin Sodium (Porcine) 5,000 unit 07/11/18 22:00 07/13/18 21:59 Heparin - SQ 5,000 unit TID [facility] Administration Piperacillin Sod/Tazobactam 50 mls @ 100 mls/hr 07/11/18 21:00 07/13/18 21:59 Sod 2.25 gm/ Dextrose IVPB 100 mls/hr Q6H-IV [facility] Administration Protocol Sodium Bicarbonate 50 meq/ 1,000 mls @ 100 mls/hr 07/13/18 10:00 07/13/18 11: 54 Dextrose/Sodium Chloride IV 100 mls/hr Q10H [facility] Administration Lactulose 20 gm 07/11/18 22:00 07/13/18 21:57 Cephulac (Oral Use) PO 20 gm BID [facility] Administration Levetiracetam 500 mg 07/11/18 22:00 07/13/18 21:58 Keppra - PO 500 mg BID [facility] Administration Oxycodone HCl 10 mg 07/11/18 15:40 07/13/18 21:57 Roxicodone - PO 10 mg Q6H PRN Administration PAIN 6-10 Pantoprazole Sodium 40 mg 07/12/18 10:00 07/13/18 10:50 Protonix Iv IVPUSH 40 mg DAILY [facility] Administration Prochlorperazine Maleate 10 mg 07/12/18 10:00 07/13/18 10:52 Compazine - PO 10 mg DAILY [facility] Administration Sodium Bicarbonate 650 mg 07/11/18 22:00 07/13/18 21:58 Sodium Bicarbonate - PO 650 mg BID [facility] Administration Thiamine HCl 200 mg 07/11/18 22:00 07/13/18 22:00 Vitamin B1 Injection - IVPB 07/14/18 21:59 200 mg TID [facility] Administration A/P 57 y/o with Altered mental status ? sepsis ? toxic/metabolic encephalopathy ? opiates Bladder CA s/p resection in 2013 Seizure DIVINA Transaminitis Heroin abuse on Methadone Cholelithiasis PLAN Left renal cell carcinoma s/p resection (04/09); Bladder CA s/p resection (2013) now has metastatic cancer in Liver and lung CT abd/pelvis without contrast: Multiple pulmonary metastases. Hepatomegaly with heterogenous liver suspicious for multiple mets. Will need to get records from his oncologist regarding his past therapy Ongoing supportive care for ? sepsis/DIVINA MRI brain w/o contrast --no obvious mets MRI liver--no obvious intervenable duct dilatations. cirrhosis vs mets will request palliative care team to convene family meeting
[2018-07-14] MEDS: PIPERACILLIN/TAZOB 2.25 GM 2.25 GM in DEXTROSE 5%-WATER - 50 ML IVPB SCH ×4 (03:15→21:48)
[2018-07-14] MEDS: SODIUM BICARBONATE 8.4% - 50 MEQ in DEXTROSE 5%-0.45% SALINE 950 ML IV SCH ×2 (04:50→11:07)
[2018-07-14 07:07] LABS: HEMATOCRIT 28.9 % (35.4-49); HEMOGLOBIN 8.8 GM/dL (11.7-16.9); MCH 24.2 pg (25.7-33.7); MCHC 30.5 g/dl (32.0-35.9); MEAN CELL VOLUME 79.4 fl (80-96); MEAN PLT VOLUME 8.9 fl (7.5-11.1); PLATELET COUNT 248 K/MM3 (134-434); RBC 3.64 M/mm3 (4.00-5.60); RDW 17.9 % (11.9-15.9); WHITE BLOOD COUNT 17.9 K/mm3 (4.0-10.0)
[2018-07-14 07:46] LABS: ALBUMIN 1.8 g/dl (3.4-5.0); ALK PHOS 506 U/L (45-117); ANION GAP 13 MMOL/L (8-16); BLOOD UREA NITROGEN 46 mg/dL (7-18); CALCIUM 9.2 mg/dL (8.5-10.1); CHLORIDE 119 mmol/L (98-107); CO2 13 mmol/L (21-32); CREATININE 1.8 mg/dL (0.55-1.3); GLUCOSE,RANDOM 62 mg/dL (74-106); POTASSIUM 4.2 mmol/L (3.5-5.1); SGOT/AST 190 U/L (15-37); SGPT/ALT 133 U/L (13-61); SODIUM 145 mmol/L (136-145); TOT PROT 5.8 g/dl (6.4-8.2)
[2018-07-14] MEDS: HEPARIN NA (PORCINE) 5,000 UNITS/ML 1ML VIAL SQ SCH ×3 (08:07→21:48)
[2018-07-14] MEDS: THIAMINE HCL 200 MG/2 ML VIAL IVPB SCH ×2 (08:07→15:46)
[2018-07-14 10:06] LABS: ANISOCYTOSIS 2+; PLATELET ESTIMATE NORMAL; TARGET CELLS 2+
[2018-07-14] MEDS ORDERED: DEXTROSE 5%-WATER - 50 ML IVPB ONE ×3 (10:44→21:34)
[2018-07-14] MEDS ORDERED: PIPERACILLIN/TAZOBACTAM 2.25 GM VIAL IVPB ONE ×3 (10:44→21:34)
[2018-07-14] MEDS ORDERED: PT OWN MED DRAWER 7, Y5N ONE ×2 (11:01→15:38)
[2018-07-14] MEDS: LACTULOSE 20 GM/30 ML UDC (FOR ORAL USE ONLY) PO SCH ×2 (11:07→22:11)
[2018-07-14] MEDS: DOCUSATE SODIUM 100 MG CAPSULE (FP) PO SCH (11:07)
[2018-07-14] MEDS: PROCHLORPERAZINE MALEATE 5 MG TABLET PO SCH (11:08)
[2018-07-14] MEDS: levETIRAcetam 500 MG TABLET (FP) PO SCH ×2 (11:09→21:48)
[2018-07-14] MEDS: PANTOPRAZOLE SODIUM 40 MG VIAL IVPUSH SCH (11:10)
[2018-07-14] MEDS: SODIUM BICARBONATE 650 MG TABLET PO SCH ×2 (11:10→21:48)
--- NOTE | 2018-07-14 11:16 | PN ---
Progress Note, Physician Chief Complaint: pulmonary lethargic,confused,-resp distress - Current Medication List Current Medications: Active Medications Acetaminophen (Tylenol -) 650 mg PO Q6H PRN PRN Reason: PAIN 6-10 Docusate Sodium (Colace -) 100 mg PO DAILY [facility] Last Admin: 07/14/18 11:07 Dose: 100 mg Heparin Sodium (Porcine) (Heparin -) 5,000 unit SQ TID [facility] Last Admin: 07/14/18 08:07 Dose: 5,000 unit Piperacillin Sod/Tazobactam (Sod 2.25 gm/ Dextrose) 50 mls @ 100 mls/hr IVPB Q6H-IV [facility]; Protocol Last Admin: 07/14/18 09:00 Dose: 100 mls/hr Sodium Bicarbonate 50 meq/ (Dextrose/Sodium Chloride) 1,000 mls @ 100 mls/hr IV Q10H [facility] Last Admin: 07/14/18 11:07 Dose: 100 mls/hr Lactulose (Cephulac (Oral Use)) 20 gm PO BID [facility] Last Admin: 07/14/18 11:07 Dose: 20 gm Levetiracetam (Keppra -) 500 mg PO BID [facility] Last Admin: 07/14/18 11:09 Dose: 500 mg Oxycodone HCl (Roxicodone -) 10 mg PO Q6H PRN PRN Reason: PAIN 6-10 Last Admin: 07/13/18 21:57 Dose: 10 mg Pantoprazole Sodium (Protonix Iv) 40 mg IVPUSH DAILY [facility] Last Admin: 07/14/18 11:10 Dose: 40 mg Prochlorperazine Maleate (Compazine -) 10 mg PO DAILY [facility] Last Admin: 07/14/18 11:08 Dose: 10 mg Sodium Bicarbonate (Sodium Bicarbonate -) 650 mg PO BID [facility] Last Admin: 07/14/18 11:10 Dose: 650 mg Thiamine HCl (Vitamin B1 Injection -) 200 mg IVPB TID [facility] Stop: 07/14/18 21:59 Last Admin: 07/14/18 08:07 Dose: 200 mg - Objective Vital Signs: Vital Signs Temperature 97.8 F 07/14/18 06:00 Pulse Rate 117 H 07/14/18 06:00 Respiratory Rate 20 07/14/18 06:00 Blood Pressure 133/73 07/14/18 06:00 O2 Sat by Pulse Oximetry (%) 98 07/13/18 21:00 Constitutional: Yes: Thin, Other (lethargic) Eyes: Yes: WNL HENT: Yes: WNL Neck: Yes: WNL Cardiovascular: Yes: Regular Rate and Rhythm, S1, S2 Respiratory: Yes: Diminished, Other (poor inspiratory effort) Gastrointestinal: Yes: Normal Bowel Sounds, Soft Extremities: Yes: WNL Edema: No Labs: CBC, BMP 07/14/18 06:00 07/14/18 06:00 INR, PTT INR 1.59 (0.83-1.09) H 07/13/18 07:38 Problem List - Problems (1) Pulmonary nodules/lesions, multiple Code(s): R91.8 - OTHER NONSPECIFIC ABNORMAL FINDING OF LUNG FIELD (2) Acute renal failure Code(s): N17.9 - ACUTE KIDNEY FAILURE, UNSPECIFIED (3) Change in mental status Code(s): R41.82 - ALTERED MENTAL STATUS, UNSPECIFIED (4) Hypotension Code(s): I95.9 - HYPOTENSION, UNSPECIFIED (5) Metastasis from bladder cancer Code(s): C79.9 - SECONDARY MALIGNANT NEOPLASM OF UNSPECIFIED SITE; C67.9 - MALIGNANT NEOPLASM OF BLADDER, UNSPECIFIED (6) UTI (urinary tract infection) Code(s): N39.0 - URINARY TRACT INFECTION, SITE NOT SPECIFIED Assessment/Plan ASSESSMENT AND PLAN: UTI S/P Severe Sepsis Acute Kidney Injury improving Metabolic Acidosis Metastatic Bladder Anemia Seizure Disorder h/o HTN multiple pulmonary nodules thrombocytopenia - continue IVF - continue antibiotics - monitor urine output, creatinine - trend LFTs - monitir lytes,cbc,plt ct DR METCALF
--- NOTE | 2018-07-14 13:15 | PN ---
Progress Note (short form) - Note Progress Note: RENAL Pt unable to give a history appears encephalopathic Last Vital Signs Temp Pulse Resp BP Pulse Ox 97.7 F 100 H 20 109/44 L 99 07/14/18 10:20 07/14/18 10:20 07/14/18 10:20 07/14/18 10:20 07/14/18 09:00 lungs clear anteriorly cvs s1s2 rr abd soft, mass in left upper quadrant, ?ileal conduit ext no edema neuro obtunded CBC, BMP 07/14/18 06:00 07/14/18 06:00 Current Medications Generic Name Dose Route Start Last Admin Trade Name Freq PRN Reason Stop Dose Admin Acetaminophen 650 mg 07/11/18 15:40 Tylenol - PO Q6H PRN PAIN 6-10 Docusate Sodium 100 mg 07/12/18 10:00 07/14/18 11:07 Colace - PO 100 mg DAILY [facility] Administration Heparin Sodium (Porcine) 5,000 unit 07/11/18 22:00 07/14/18 08:07 Heparin - SQ 5,000 unit TID [facility] Administration Piperacillin Sod/Tazobactam 50 mls @ 100 mls/hr 07/11/18 21:00 07/14/18 09:00 Sod 2.25 gm/ Dextrose IVPB 100 mls/hr Q6H-IV [facility] Administration Protocol Sodium Bicarbonate 50 meq/ 1,000 mls @ 100 mls/hr 07/13/18 10:00 07/14/18 11: 07 Dextrose/Sodium Chloride IV 100 mls/hr Q10H [facility] Administration Lactulose 20 gm 07/11/18 22:00 07/14/18 11:07 Cephulac (Oral Use) PO 20 gm BID [facility] Administration Levetiracetam 500 mg 07/11/18 22:00 07/14/18 11:09 Keppra - PO 500 mg BID [facility] Administration Oxycodone HCl 10 mg 07/11/18 15:40 07/13/18 21:57 Roxicodone - PO 10 mg Q6H PRN Administration PAIN 6-10 Pantoprazole Sodium 40 mg 07/12/18 10:00 07/14/18 11:10 Protonix Iv IVPUSH 40 mg DAILY [facility] Administration Prochlorperazine Maleate 10 mg 07/12/18 10:00 07/14/18 11:08 Compazine - PO 10 mg DAILY [facility] Administration Sodium Bicarbonate 650 mg 07/11/18 22:00 07/14/18 11:10 Sodium Bicarbonate - PO 650 mg BID [facility] Administration Thiamine HCl 200 mg 07/11/18 22:00 07/14/18 08:07 Vitamin B1 Injection - IVPB 07/14/18 21:59 200 mg TID [facility] Administration Impression 1. DIVINA 2. CKD 3. bladder cancer 4. hx left nephrectomy 5. hypotension 6. altered mental status 7. metastatic disease 8. hyperkalemia improving 9. hx of htn although pt now hypotensive 10. hypotension 11. anemia 12. sepsis 13. epilepsy 14 low bicarb worsened by ileal conduit Plan will change to d5w with bicarb repeat ammonia level keep on lactulose caution with compazine which can cause seizures continue antibiotics MV
--- NOTE | 2018-07-14 14:13 | PN ---
Progress Note, Physician Chief Complaint: AMS metastatic liver and lung cancer DIVINA History of Present Illness: confused - Current Medication List Current Medications: Active Medications Acetaminophen (Tylenol -) 650 mg PO Q6H PRN PRN Reason: PAIN 6-10 Docusate Sodium (Colace -) 100 mg PO DAILY [facility] Last Admin: 07/14/18 11:07 Dose: 100 mg Heparin Sodium (Porcine) (Heparin -) 5,000 unit SQ TID [facility] Last Admin: 07/14/18 08:07 Dose: 5,000 unit Piperacillin Sod/Tazobactam (Sod 2.25 gm/ Dextrose) 50 mls @ 100 mls/hr IVPB Q6H-IV [facility]; Protocol Last Admin: 07/14/18 09:00 Dose: 100 mls/hr Sodium Bicarbonate 100 meq/ (Dextrose) 1,100 mls @ 100 mls/hr IV Q11H [facility] Lactulose (Cephulac (Oral Use)) 20 gm PO BID [facility] Last Admin: 07/14/18 11:07 Dose: 20 gm Levetiracetam (Keppra -) 500 mg PO BID [facility] Last Admin: 07/14/18 11:09 Dose: 500 mg Oxycodone HCl (Roxicodone -) 10 mg PO Q6H PRN PRN Reason: PAIN 6-10 Last Admin: 07/13/18 21:57 Dose: 10 mg Pantoprazole Sodium (Protonix Iv) 40 mg IVPUSH DAILY [facility] Last Admin: 07/14/18 11:10 Dose: 40 mg Prochlorperazine Maleate (Compazine -) 10 mg PO DAILY [facility] Last Admin: 07/14/18 11:08 Dose: 10 mg Sodium Bicarbonate (Sodium Bicarbonate -) 650 mg PO BID [facility] Last Admin: 07/14/18 11:10 Dose: 650 mg Thiamine HCl (Vitamin B1 Injection -) 200 mg IVPB TID [facility] Stop: 07/14/18 21:59 Last Admin: 07/14/18 08:07 Dose: 200 mg - Objective Vital Signs: Vital Signs Temperature 97.7 F 07/14/18 10:20 Pulse Rate 100 H 07/14/18 10:20 Respiratory Rate 20 07/14/18 10:20 Blood Pressure 109/44 L 07/14/18 10:20 O2 Sat by Pulse Oximetry (%) 99 07/14/18 09:00 Constitutional: Yes: Well Nourished, No Distress, Anxious Cardiovascular: Yes: Regular Rate and Rhythm Respiratory: Yes: Regular Gastrointestinal: Yes: Normal Bowel Sounds, Soft Musculoskeletal: Yes: WNL, Muscle Weakness Neurological: Yes: Alert, Confusion Psychiatric: Yes: Alert, Agitated Labs: CBC, BMP 07/14/18 06:00 07/14/18 06:00 INR, PTT INR 1.59 (0.83-1.09) H 07/13/18 07:38 Problem List - Problems (1) Acute renal failure Assessment/Plan: -improved -nephrology on board -IVF -monitor trend Code(s): N17.9 - ACUTE KIDNEY FAILURE, UNSPECIFIED (2) Change in mental status Assessment/Plan: 2/2 metabolic encephalopathy->UTI -Seen by neurology -CT head and MRI brain unremarkable Code(s): R41.82 - ALTERED MENTAL STATUS, UNSPECIFIED (3) Elevated LFTs Assessment/Plan: -Seen by GI -no further intervention recommended at this time -monitor trend Code(s): R94.5 - ABNORMAL RESULTS OF LIVER FUNCTION STUDIES (4) Hyperkalemia Assessment/Plan: -resolved -monitor trend Code(s): E87.5 - HYPERKALEMIA (5) Leukocytosis Assessment/Plan: -likely reactive -afebrile -hematology and ID on board -On IV abx -BC pending Code(s): D72.829 - ELEVATED WHITE BLOOD CELL COUNT, UNSPECIFIED (6) Metastasis from bladder cancer Assessment/Plan: -Oncology on board Code(s): C79.9 - SECONDARY MALIGNANT NEOPLASM OF UNSPECIFIED SITE; C67.9 - MALIGNANT NEOPLASM OF BLADDER, UNSPECIFIED (7) UTI (urinary tract infection) Assessment/Plan: -UC: Microbiology 07/10/18 04:27 Blood - Peripheral Venous Blood Culture - Preliminary NO GROWTH OBTAINED AFTER 96 HOURS, INCUBATION TO CONTINUE FOR 1 DAYS. 07/10/18 04:27 Blood - Peripheral Venous Blood Culture - Preliminary NO GROWTH OBTAINED AFTER 96 HOURS, INCUBATION TO CONTINUE FOR 1 DAYS. 07/10/18 04:00 Urine - Urine - Catheterized Urine Culture - Final Escherichia Coli Enterococcus Faecalis -IV abx -ID on board Code(s): N39.0 - URINARY TRACT INFECTION, SITE NOT SPECIFIED Assessment/Plan see problem list prognosis poor palliative care
[2018-07-14] MEDS: SODIUM BICARBONATE 8.4% - 100 MEQ in DEXTROSE 5%-WATER - 1,000 ML IV SCH (17:29)
[2018-07-15] MEDS ORDERED: MORPHINE SULFATE 2 MG/ML VIAL IVPUSH ONE (01:15)
[2018-07-15] MEDS: SODIUM BICARBONATE 8.4% - 100 MEQ in DEXTROSE 5%-WATER - 1,000 ML IV SCH ×5 (01:23→20:28)
[2018-07-15] MEDS ORDERED: PIPERACILLIN/TAZOBACTAM 2.25 GM VIAL IVPB ONE ×4 (01:42→21:50)
[2018-07-15] MEDS ORDERED: DEXTROSE 5%-WATER - 50 ML IVPB ONE ×4 (01:43→21:50)
[2018-07-15] MEDS: PIPERACILLIN/TAZOB 2.25 GM 2.25 GM in DEXTROSE 5%-WATER - 50 ML IVPB SCH ×4 (02:01→21:54)
[2018-07-15] MEDS: HEPARIN NA (PORCINE) 5,000 UNITS/ML 1ML VIAL SQ SCH ×3 (06:10→21:55)
[2018-07-15 07:59] LABS: INR 1.67 (0.83-1.09); PROTHROMBIN TIME (PATIENT) 18.9 SEC (9.7-13.0)
[2018-07-15 08:44] LABS: HEMATOCRIT 26.5 % (35.4-49); HEMOGLOBIN 8.3 GM/dL (11.7-16.9); MCH 24.7 pg (25.7-33.7); MCHC 31.4 g/dl (32.0-35.9); MEAN CELL VOLUME 78.7 fl (80-96); MEAN PLT VOLUME 9.8 fl (7.5-11.1); PLATELET COUNT 242 K/MM3 (134-434); RBC 3.37 M/mm3 (4.00-5.60); RDW 17.8 % (11.9-15.9); WHITE BLOOD COUNT 19.7 K/mm3 (4.0-10.0)
[2018-07-15 08:52] LABS: ALBUMIN 1.7 g/dl (3.4-5.0); ALK PHOS 471 U/L (45-117); ANION GAP 15 MMOL/L (8-16); BILIRUBIN,TOTAL 7.3 mg/dL (0.2-1); BLOOD UREA NITROGEN 44 mg/dL (7-18); CHLORIDE 120 mmol/L (98-107); CO2 13 mmol/L (21-32); CREATININE 1.7 mg/dL (0.55-1.3); GLUCOSE,RANDOM 62 mg/dL (74-106); POTASSIUM 3.7 mmol/L (3.5-5.1); SGOT/AST 250 U/L (15-37); SGPT/ALT 155 U/L (13-61); SODIUM 148 mmol/L (136-145); TOT PROT 5.5 g/dl (6.4-8.2)
[2018-07-15] MEDS: PANTOPRAZOLE SODIUM 40 MG VIAL IVPUSH SCH (11:06)
[2018-07-15] MEDS: SODIUM BICARBONATE 650 MG TABLET PO SCH ×2 (11:07→21:54)
--- NOTE | 2018-07-15 11:44 | PN ---
Progress Note, Physician Chief Complaint: AMS metastatic liver and lung cancer DIVINA History of Present Illness: nad confused UTI IV abx Seen by ID leukocytosis - Current Medication List Current Medications: Active Medications Acetaminophen (Tylenol -) 650 mg PO Q6H PRN PRN Reason: PAIN 6-10 Docusate Sodium (Colace -) 100 mg PO DAILY [facility] Last Admin: 07/14/18 11:07 Dose: 100 mg Heparin Sodium (Porcine) (Heparin -) 5,000 unit SQ TID [facility] Last Admin: 07/15/18 06:10 Dose: 5,000 unit Piperacillin Sod/Tazobactam (Sod 2.25 gm/ Dextrose) 50 mls @ 100 mls/hr IVPB Q6H-IV [facility]; Protocol Last Admin: 07/15/18 02:01 Dose: 100 mls/hr Sodium Bicarbonate 100 meq/ (Dextrose) 1,100 mls @ 100 mls/hr IV Q11H [facility] Last Admin: 07/15/18 06:10 Dose: 100 mls/hr Lactulose (Cephulac (Oral Use)) 20 gm PO BID [facility] Last Admin: 07/14/18 22:11 Dose: Not Given Levetiracetam (Keppra -) 500 mg PO BID [facility] Last Admin: 07/14/18 21:48 Dose: 500 mg Oxycodone HCl (Roxicodone -) 10 mg PO Q6H PRN PRN Reason: PAIN 6-10 Last Admin: 07/13/18 21:57 Dose: 10 mg Pantoprazole Sodium (Protonix Iv) 40 mg IVPUSH DAILY [facility] Last Admin: 07/14/18 11:10 Dose: 40 mg Prochlorperazine Maleate (Compazine -) 10 mg PO DAILY [facility] Last Admin: 07/14/18 11:08 Dose: 10 mg Sodium Bicarbonate (Sodium Bicarbonate -) 650 mg PO BID [facility] Last Admin: 07/14/18 21:48 Dose: 650 mg - Objective Vital Signs: Vital Signs Temperature 97.8 F 07/15/18 06:00 Pulse Rate 118 H 07/15/18 06:00 Respiratory Rate 20 07/15/18 06:00 Blood Pressure 135/76 07/15/18 06:00 O2 Sat by Pulse Oximetry (%) 98 07/14/18 21:00 Constitutional: Yes: Well Nourished, No Distress, Calm Cardiovascular: Yes: Regular Rate and Rhythm Respiratory: Yes: Regular Gastrointestinal: Yes: Normal Bowel Sounds, Soft Musculoskeletal: Yes: Muscle Weakness Neurological: Yes: Alert, Confusion, Pre-Existing Deficit Psychiatric: Yes: Alert Labs: CBC, BMP 07/15/18 07:24 07/15/18 07:24 INR, PTT INR 1.67 (0.83-1.09) H 07/15/18 07:24 Problem List - Problems (1) Acute renal failure Assessment/Plan: -improved -nephrology on board -IVF -monitor trend Code(s): N17.9 - ACUTE KIDNEY FAILURE, UNSPECIFIED (2) Change in mental status Assessment/Plan: 2/ metabolic encephalopathy->UTI -Seen by neurology -CT head and MRI brain unremarkable Code(s): R41.82 - ALTERED MENTAL STATUS, UNSPECIFIED (3) Elevated LFTs Assessment/Plan: -Seen by GI -no further intervention recommended at this time -monitor trend Code(s): R94.5 - ABNORMAL RESULTS OF LIVER FUNCTION STUDIES (4) Hyperkalemia Assessment/Plan: -resolved -monitor trend Code(s): E87.5 - HYPERKALEMIA (5) Leukocytosis Assessment/Plan: -likely reactive -afebrile -hematology and ID on board -On IV abx -BC pending Code(s): D72.829 - ELEVATED WHITE BLOOD CELL COUNT, UNSPECIFIED (6) Metastasis from bladder cancer Assessment/Plan: -Oncology on board Code(s): C79.9 - SECONDARY MALIGNANT NEOPLASM OF UNSPECIFIED SITE; C67.9 - MALIGNANT NEOPLASM OF BLADDER, UNSPECIFIED (7) UTI (urinary tract infection) Assessment/Plan: -UC: Microbiology 07/10/18 04:27 Blood - Peripheral Venous Blood Culture - Preliminary NO GROWTH OBTAINED AFTER 96 HOURS, INCUBATION TO CONTINUE FOR 1 DAYS. 07/10/18 04:27 Blood - Peripheral Venous Blood Culture - Preliminary NO GROWTH OBTAINED AFTER 96 HOURS, INCUBATION TO CONTINUE FOR 1 DAYS. 07/10/18 04:00 Urine - Urine - Catheterized Urine Culture - Final Escherichia Coli Enterococcus Faecalis -IV abx -ID on board Code(s): N39.0 - URINARY TRACT INFECTION, SITE NOT SPECIFIED Assessment/Plan see problem list prognosis poor palliative care
[2018-07-15] MEDS: LACTULOSE 20 GM/30 ML UDC (FOR ORAL USE ONLY) PO SCH ×2 (12:07→21:54)
[2018-07-15] MEDS: levETIRAcetam 500 MG TABLET (FP) PO SCH ×2 (12:07→21:54)
[2018-07-15] MEDS: DOCUSATE SODIUM 100 MG CAPSULE (FP) PO SCH (12:08)
[2018-07-15 12:28] LABS: PLATELET ESTIMATE ADEQUATE
--- NOTE | 2018-07-15 12:30 | PN ---
Progress Note (short form) - Note Progress Note: RENAL Pt unable to give a history appears encephalopathic Last Vital Signs Temp Pulse Resp BP Pulse Ox 97.8 F 118 H 20 135/76 98 07/15/18 06:00 07/15/18 06:00 07/15/18 06:00 07/15/18 06:00 07/14/18 21:00 lungs clear anteriorly cvs s1s2 rr abd soft, mass in left upper quadrant, ileal conduit bag with good amount of urine ext no edema neuro obtunded CBC, BMP 07/15/18 07:24 07/15/18 07:24 Current Medications Generic Name Dose Route Start Last Admin Trade Name Freq PRN Reason Stop Dose Admin Acetaminophen 650 mg 07/11/18 15:40 Tylenol - PO Q6H PRN PAIN 6-10 Amino Acids 30 ml 07/15/18 17:30 Prosource No Carb Liquid Pkt PO BID@0800,1730 [facility] Docusate Sodium 100 mg 07/12/18 10:00 07/15/18 12:08 Colace - PO 100 mg DAILY [facility] Administration Heparin Sodium (Porcine) 5,000 unit 07/11/18 22:00 07/15/18 06:10 Heparin - SQ 5,000 unit TID [facility] Administration Piperacillin Sod/Tazobactam 50 mls @ 100 mls/hr 07/11/18 21:00 07/15/18 12:08 Sod 2.25 gm/ Dextrose IVPB 100 mls/hr Q6H-IV [facility] Administration Protocol Sodium Bicarbonate 100 meq/ 1,100 mls @ 100 mls/hr 07/14/18 13:30 07/15/18 12 :09 Dextrose IV Not Given Q11H [facility] Lactulose 20 gm 07/11/18 22:00 07/15/18 12:07 Cephulac (Oral Use) PO 20 gm BID [facility] Administration Levetiracetam 500 mg 07/11/18 22:00 07/15/18 12:07 Keppra - PO 500 mg BID [facility] Administration Metoprolol Succinate 12.5 mg 07/15/18 11:45 Toprol Xl - PO DAILY [facility] Oxycodone HCl 10 mg 07/11/18 15:40 07/13/18 21:57 Roxicodone - PO 10 mg Q6H PRN Administration PAIN 6-10 Pantoprazole Sodium 40 mg 07/12/18 10:00 07/15/18 11:06 Protonix Iv IVPUSH 40 mg DAILY [facility] Administration Prochlorperazine Maleate 10 mg 07/12/18 10:00 07/14/18 11:08 Compazine - PO 10 mg DAILY [facility] Administration Sodium Bicarbonate 650 mg 07/11/18 22:00 07/15/18 11:07 Sodium Bicarbonate - PO 650 mg BID [facility] Administration Impression 1. DIVINA 2. CKD 3. bladder cancer 4. hx left nephrectomy 5. hypotension 6. altered mental status 7. metastatic disease 8. hyperkalemia improving 9. hx of htn although pt now hypotensive 10. hypotension 11. anemia 12. sepsis 13. epilepsy 14 low bicarb worsened by ileal conduit 15 developing hypercalcemia with a corrected over 11 16 high anion gap acidosis may be from liver failure Plan increase ivf hospice/palliative care repeat ammonia level keep on lactulose caution with compazine which can cause seizures continue antibiotics MV MV
--- NOTE | 2018-07-15 12:33 | PN ---
Progress Note, Physician History of Present Illness: pulmonary lethargic,congested, - Current Medication List Current Medications: Active Medications Acetaminophen (Tylenol -) 650 mg PO Q6H PRN PRN Reason: PAIN 6-10 Amino Acids (Prosource No Carb Liquid Pkt) 30 ml PO BID@0800,1730 [facility] Docusate Sodium (Colace -) 100 mg PO DAILY [facility] Last Admin: 07/15/18 12:08 Dose: 100 mg Heparin Sodium (Porcine) (Heparin -) 5,000 unit SQ TID [facility] Last Admin: 07/15/18 06:10 Dose: 5,000 unit Piperacillin Sod/Tazobactam (Sod 2.25 gm/ Dextrose) 50 mls @ 100 mls/hr IVPB Q6H-IV [facility]; Protocol Last Admin: 07/15/18 12:08 Dose: 100 mls/hr Sodium Bicarbonate 100 meq/ (Dextrose) 1,100 mls @ 100 mls/hr IV Q11H [facility] Last Admin: 07/15/18 12:09 Dose: Not Given Lactulose (Cephulac (Oral Use)) 20 gm PO BID [facility] Last Admin: 07/15/18 12:07 Dose: 20 gm Levetiracetam (Keppra -) 500 mg PO BID [facility] Last Admin: 07/15/18 12:07 Dose: 500 mg Metoprolol Succinate (Toprol Xl -) 12.5 mg PO DAILY [facility] Oxycodone HCl (Roxicodone -) 10 mg PO Q6H PRN PRN Reason: PAIN 6-10 Last Admin: 07/13/18 21:57 Dose: 10 mg Pantoprazole Sodium (Protonix Iv) 40 mg IVPUSH DAILY [facility] Last Admin: 07/15/18 11:06 Dose: 40 mg Prochlorperazine Maleate (Compazine -) 10 mg PO DAILY [facility] Last Admin: 07/14/18 11:08 Dose: 10 mg Sodium Bicarbonate (Sodium Bicarbonate -) 650 mg PO BID [facility] Last Admin: 07/15/18 11:07 Dose: 650 mg - Objective Vital Signs: Vital Signs Temperature 97.8 F 07/15/18 06:00 Pulse Rate 118 H 07/15/18 06:00 Respiratory Rate 20 07/15/18 06:00 Blood Pressure 135/76 07/15/18 06:00 O2 Sat by Pulse Oximetry (%) 98 07/14/18 21:00 Constitutional: Yes: Thin, Other (LETHARGIC) Eyes: Yes: WNL HENT: Yes: WNL Neck: Yes: WNL Cardiovascular: Yes: Regular Rate and Rhythm, S1, S2 Respiratory: Yes: Rhonchi (valorie rhonchi) Gastrointestinal: Yes: Normal Bowel Sounds, Soft Extremities: Yes: WNL Edema: No Labs: CBC, BMP 07/15/18 07:24 07/15/18 07:24 INR, PTT INR 1.67 (0.83-1.09) H 07/15/18 07:24 Problem List - Problems (1) Pulmonary nodules/lesions, multiple Code(s): R91.8 - OTHER NONSPECIFIC ABNORMAL FINDING OF LUNG FIELD (2) Acute renal failure Code(s): N17.9 - ACUTE KIDNEY FAILURE, UNSPECIFIED (3) Change in mental status Code(s): R41.82 - ALTERED MENTAL STATUS, UNSPECIFIED (4) Hypotension Code(s): I95.9 - HYPOTENSION, UNSPECIFIED (5) Metastasis from bladder cancer Code(s): C79.9 - SECONDARY MALIGNANT NEOPLASM OF UNSPECIFIED SITE; C67.9 - MALIGNANT NEOPLASM OF BLADDER, UNSPECIFIED (6) UTI (urinary tract infection) Code(s): N39.0 - URINARY TRACT INFECTION, SITE NOT SPECIFIED Assessment/Plan ASSESSMENT AND PLAN: UTI S/P Severe Sepsis Acute Kidney Injury improving Metabolic Acidosis Metastatic Bladder Anemia Seizure Disorder h/o HTN multiple pulmonary nodules thrombocytopenia - continue IVF - antibiotics - monitor urine output, creatinine - trend LFTs - monitir lytes,cbc,plt ct - inhaled bronchodilators - chest x-ray DR METCALF
[2018-07-15] MEDS ORDERED: ALBUTEROL SO4 2.5/IPRATROPIUM 0.5 INH SOL 3 ML VIAL.NEB. NEB PRN (12:40)
[2018-07-15] MEDS ORDERED: PT OWN MED DRAWER 7, Y5N ONE (14:40)
[2018-07-15] MEDS: PROCHLORPERAZINE MALEATE 5 MG TABLET PO SCH (14:41)
[2018-07-15] MEDS: metoPROLOL SUCCINATE 25 MG TAB.SR.24H (FP) PO SCH (14:42)
[2018-07-15] MEDS: AMINO ACIDS/PROTEIN HYDROLYS 30 ML LIQUID.PKT PO SCH (18:21)
[2018-07-16] MEDS ORDERED: MORPHINE SULFATE 2 MG/ML VIAL IVPUSH ONE (02:39)
[2018-07-16] MEDS ORDERED: DEXTROSE 5%-WATER - 50 ML IVPB ONE ×5 (03:01→19:50)
[2018-07-16] MEDS ORDERED: PIPERACILLIN/TAZOBACTAM 2.25 GM VIAL IVPB ONE ×4 (03:01→19:49)
[2018-07-16] MEDS: PIPERACILLIN/TAZOB 2.25 GM 2.25 GM in DEXTROSE 5%-WATER - 50 ML IVPB SCH ×4 (03:02→20:36)
[2018-07-16] MEDS: SODIUM BICARBONATE 8.4% - 100 MEQ in DEXTROSE 5%-WATER - 1,000 ML IV SCH ×5 (03:48→23:48)
[2018-07-16] MEDS: HEPARIN NA (PORCINE) 5,000 UNITS/ML 1ML VIAL SQ SCH ×3 (05:18→21:20)
--- NOTE | 2018-07-16 06:24 | HOSP ---
Subjective - Review of Symptoms Events since last encounter: called to see patient for tachypnea. morphine given with improvement around 330 for same as nurse reported pt appeared in pain and was unable to take oxycodone po Subjective: pt denies pain when prompted. Only yes no answers obtained after tactile stimulation. Pulmonary: Yes: Dyspnea Physical Examination Vital Signs: Vital Signs Temperature 99.2 F 07/16/18 02:00 Pulse Rate 11 L 07/16/18 02:00 Respiratory Rate 20 07/16/18 02:00 Blood Pressure 120/71 07/16/18 02:00 O2 Sat by Pulse Oximetry (%) 98 07/15/18 21:00 Constitutional: Yes: Mild Distress Cardiovascular: Yes: Regular Rate and Rhythm, S1, S2 Respiratory: Yes: CTA Bilaterally, Tachypnea Gastrointestinal: Yes: Normal Bowel Sounds, Soft, Tenderness (all 4 quadrants to minimal palpation) Peripheral Pulses WNL: Yes Labs: CBC, BMP 07/15/18 07:24 07/15/18 07:24 Hospitalist Encounter Assessment: tachypnea - likely due to pain as abd tender to minimal palpation, will give morphine - cxr this am - palliative care consult pending.
[2018-07-16] MEDS: MORPHINE SULFATE 2 MG/ML VIAL IVPUSH PRN (06:38)
[2018-07-16] MEDS ORDERED: DEXTROSE 50%-WATER - 25 GM/50 ML VIAL IVPUSH ONE (07:35)
[2018-07-16] MEDS ORDERED: ALBUTEROL SO4 2.5/IPRATROPIUM 0.5 INH SOL 3 ML VIAL.NEB. NEB ONE (07:52)
[2018-07-16 08:11] LABS: BASO % 0.6 % (0-2.0); EOS % 0.2 % (0-4.5); HEMATOCRIT 27.4 % (35.4-49); HEMOGLOBIN 8.2 GM/dL (11.7-16.9); LYMPH % 21.3 % (8-40); MCH 24.1 pg (25.7-33.7); MEAN CELL VOLUME 80.3 fl (80-96); MEAN PLT VOLUME 9.8 fl (7.5-11.1); MONO % 20.1 % (3.8-10.2); NEUT % 57.8 % (42.8-82.8); PLATELET COUNT 217 K/MM3 (134-434); RBC 3.41 M/mm3 (4.00-5.60); RDW 18.3 % (11.9-15.9); WHITE BLOOD COUNT 20.9 K/mm3 (4.0-10.0)
--- NOTE | 2018-07-16 08:12 | HOSP ---
Subjective - Review of Symptoms General: Yes: Other Pulmonary: Yes: Dyspnea, Other Gastrointestinal: Yes: Abdominal Pain Neurological: Yes: Confusion, Other Physical Examination Vital Signs: Vital Signs Temperature 99.0 F 07/16/18 06:00 Pulse Rate 117 H 07/16/18 06:00 Respiratory Rate 20 07/16/18 06:00 Blood Pressure 119/75 07/16/18 06:00 O2 Sat by Pulse Oximetry (%) 98 07/15/18 21:00 Constitutional: Yes: Moderate Distress Eyes: Yes: Conjunctiva Clear HENT: Yes: Atraumatic Neck: Yes: WNL Cardiovascular: Yes: Regular Rate and Rhythm Respiratory: Yes: Accessory Muscle Use, Tachypnea Gastrointestinal: Yes: Soft, Distention Hospitalist Encounter Assessment: called by primary RN for increased work of breathing and glucose 53 Patient is a 57 year old male with a past medical history of bladder cancer with mets to lung and liver. Who comes in for AMS/sepsis and was also found to have pulmonary nodules. Patient also has DIVINA is is being followed by renal. exam vitals: 117/60, 100% room air, heart rate 117 rrr, 28 breaths per minute, mostly mouth breathing - hyperventilating He is unable to provide a history secondary to ams Lungs: diminished bilaterally, unable to take in a deep breath when prompted general: weak, opens eyes, profound fatigue abdomen: soft non distended plan ekg now stat trop x 1 duoneb x 1 then vent mask to assist work of breathing give d50 push x 1 now for hypoglycemia CTA recommended to rule out PE, but renal function compromised. discussed with dr. ibanez patient is a full code
[2018-07-16 08:28] LABS: INR 2.06 (0.83-1.09); PROTHROMBIN TIME (PATIENT) 23.3 SEC (9.7-13.0)
[2018-07-16 09:29] LABS: ALBUMIN 1.6 g/dl (3.4-5.0); ALK PHOS 442 U/L (45-117); ANION GAP 23 MMOL/L (8-16); BLOOD UREA NITROGEN 56 mg/dL (7-18); CALCIUM 9.9 mg/dL (8.5-10.1); CHLORIDE 112 mmol/L (98-107); CO2 9 mmol/L (21-32); CREATININE 2.2 mg/dL (0.55-1.3); POTASSIUM 4.5 mmol/L (3.5-5.1); SGOT/AST 630 U/L (15-37); SGPT/ALT 254 U/L (13-61); SODIUM 145 mmol/L (136-145); TOT PROT 5.5 g/dl (6.4-8.2)
[2018-07-16 09:33] LABS: ARTERIAL BLD GAS O2 SATURATION 97.5 % (90-98.9); ARTERIAL BLOOD GAS BASE EXCESS -16.1 meq/l (-2-2); ARTERIAL BLOOD GAS pH 7.31 (7.35-7.45)
[2018-07-16 09:35] LABS: GLUCOSE,RANDOM 37 mg/dL (74-106)
[2018-07-16 09:37] LABS: ALLENS TEST POSITIVE; ARTERIAL BLOOD GAS PCO2 18.3 mmHg (35-45)
[2018-07-16] MEDS: AMINO ACIDS/PROTEIN HYDROLYS 30 ML LIQUID.PKT PO SCH ×2 (10:00→17:27)
--- NOTE | 2018-07-16 10:56 | EKG ---
Test Reason : Blood Pressure : / mmHG Vent. Rate : 115 BPM Atrial Rate : 115 BPM P-R Int : 114 ms QRS Dur : 110 ms QT Int : 368 ms P-R-T Axes : 055 037 033 degrees QTc Int : 509 ms SINUS TACHYCARDIA RIGHT BUNDLE BRANCH BLOCK ABNORMAL ECG WHEN COMPARED WITH ECG OF 10-JUL-2018 04:13, NO SIGNIFICANT CHANGE WAS FOUND Confirmed by AMRIT NOONAN MD ([id number]) on 07/16/2018 10:56:00 AM Referred By: Confirmed By:AMRIT NOONAN MD
[2018-07-16] MEDS: PANTOPRAZOLE SODIUM 40 MG VIAL IVPUSH SCH (11:12)
[2018-07-16 11:22] LABS: ANISOCYTOSIS 1+; MACROCYTOSIS 1+; PLATELET ESTIMATE NORMAL; TARGET CELLS 2+
[2018-07-16] MEDS: LACTULOSE 20 GM/30 ML UDC (FOR ORAL USE ONLY) PO SCH ×2 (11:25→21:18)
[2018-07-16] MEDS: DOCUSATE SODIUM 100 MG CAPSULE (FP) PO SCH (11:25)
[2018-07-16] MEDS: metoPROLOL SUCCINATE 25 MG TAB.SR.24H (FP) PO SCH (11:26)
[2018-07-16] MEDS: SODIUM BICARBONATE 650 MG TABLET PO SCH (11:26)
[2018-07-16] MEDS: PROCHLORPERAZINE MALEATE 5 MG TABLET PO SCH (11:26)
[2018-07-16] MEDS: levETIRAcetam 500 MG TABLET (FP) PO SCH (11:26)
--- NOTE | 2018-07-16 12:07 | PN ---
Progress Note (short form) - Note Progress Note: PULMONARY Lethargic, tachypneic. ABG showing metabolic acidosis, CXR unchanged. Vital Signs Period Temp Pulse Resp BP Sys/Hoffman Pulse Ox Last 24 Hr 97.3 F-99.7 F 117-121 20-23 119-130/69-82 98 Intake & Output 07/13/18 07/14/18 07/15/18 07/16/18 23:59 23:59 23:59 23:59 Intake Total 2850 3050 3160 1100 Output Total 400 1200 700 Balance 2450 1850 2460 1100 Gen: lethargic, tachypneic Heart: tachycardic, regular Lung: scattered rhonchi Abd: soft, nontender Ext: no edema CBC, BMP 07/16/18 07:00 07/16/18 07:00 ABG Results ABG pH 7.31 (7.35-7.45) L 07/16/18 09:30 ABG pCO2 at Pt Temp 18.3 mmHg (35-45) L* 07/16/18 09:30 ABG pO2 at Pt Temp 106.0 mmHg (80-100) H 07/16/18 09:30 ABG HCO3 8.9 meq/L (22-26) L* 07/16/18 09:30 ABG O2 Sat (Measured) 97.5 % (90-98.9) 07/16/18 09:30 ABG O2 Content 11.1 % vol (15-22) L 07/16/18 09:30 ABG Base Excess -16.1 meq/l (-2-2) L* 07/16/18 09:30 Active Medications Acetaminophen (Tylenol -) 650 mg PO Q6H PRN PRN Reason: PAIN 6-10 Albuterol/Ipratropium (Duoneb -) 1 amp NEB Q4H PRN PRN Reason: SHORTNESS OF BREATH Last Admin: 07/16/18 08:05 Dose: 1 amp Amino Acids (Prosource No Carb Liquid Pkt) 30 ml PO BID@0800,1730 [facility] Last Admin: 07/16/18 10:00 Dose: Not Given Docusate Sodium (Colace -) 100 mg PO DAILY [facility] Last Admin: 07/16/18 11:25 Dose: Not Given Heparin Sodium (Porcine) (Heparin -) 5,000 unit SQ TID [facility] Last Admin: 07/16/18 05:18 Dose: 5,000 unit Piperacillin Sod/Tazobactam (Sod 2.25 gm/ Dextrose) 50 mls @ 100 mls/hr IVPB Q6H-IV [facility]; Protocol Last Admin: 07/16/18 10:00 Dose: 100 mls/hr Sodium Bicarbonate 100 meq/ (Dextrose) 1,100 mls @ 150 mls/hr IV Q7H [facility] Last Admin: 07/16/18 10:01 Dose: Not Given Lactulose (Cephulac (Oral Use)) 20 gm PO BID [facility] Last Admin: 07/16/18 11:25 Dose: Not Given Levetiracetam (Keppra -) 500 mg PO BID [facility] Last Admin: 07/16/18 11:26 Dose: Not Given Metoprolol Succinate (Toprol Xl -) 12.5 mg PO DAILY [facility] Last Admin: 07/16/18 11:26 Dose: Not Given Morphine Sulfate (Morphine Sulfate) 2 mg IVPUSH Q4H PRN PRN Reason: PAIN LEVEL 6-10 Last Admin: 07/16/18 06:38 Dose: 2 mg Oxycodone HCl (Roxicodone -) 10 mg PO Q6H PRN PRN Reason: PAIN 6-10 Last Admin: 07/13/18 21:57 Dose: 10 mg Pantoprazole Sodium (Protonix Iv) 40 mg IVPUSH DAILY [facility] Last Admin: 07/16/18 11:12 Dose: 40 mg Prochlorperazine Maleate (Compazine -) 10 mg PO DAILY [facility] Last Admin: 07/16/18 11:26 Dose: Not Given Sodium Bicarbonate (Sodium Bicarbonate -) 650 mg PO BID [facility] Last Admin: 07/16/18 11:26 Dose: Not Given A/P UTI Severe Sepsis Acute Kidney Injury Metabolic Acidosis Metastatic Bladder Ca Elevated LFTs Anemia Seizure Disorder h/o HTN - continue bicarb gtt - continue antibiotics - monitor urine output, creatinine - trend LFTs - poor overall prognosis, palliative care would be appropriate at this time
--- NOTE | 2018-07-16 12:24 | PN ---
Progress Note, EDUCATION REPORTER - Note Progress Note: Selected Entries 07/14/18 07/15/18 07/15/18 14:20 02:00 06:00 Breakfast 0 Lunch 25% Temperature 97.7 F 97.8 F 07/15/18 07/15/18 07/15/18 12:37 14:49 18:00 Breakfast 75% Lunch 0 Temperature 98 F 99.7 F H 98.2 F 07/15/18 07/16/18 07/16/18 18:31 02:00 06:00 Breakfast Lunch Temperature 97.3 F L 99.2 F 99.0 F 07/16/18 09:44 Breakfast 0 Lunch Temperature Laboratory Tests 07/14/18 07/15/18 07/16/18 06:00 07:24 07:00 WBC 17.9 H 19.7 H 20.9 H Palliative care pending. RR called. Visit deferred.
--- NOTE | 2018-07-16 12:28 | RAPID ---
Physical Examination Vital Signs: Vital Signs Temperature 99.0 F 07/16/18 06:00 Pulse Rate 117 H 07/16/18 06:00 Respiratory Rate 20 07/16/18 06:00 Blood Pressure 119/75 07/16/18 06:00 O2 Sat by Pulse Oximetry (%) 98 07/15/18 21:00 Labs: CBC, BMP 07/16/18 07:00 07/16/18 07:00 Rapid Response - Rapid Response Assessment: Rapid response called to [address] [place] [address] at 12:19PM for patient altered mental status. Patient is a 57 year old male with bladder cancer metastatic to lungs and liver , seen and examined at bedside, poorly responsive, not verbal. Vitals: BP 107/73 HR 112 RR 16 O2 97% on 2L nasal canula Temp 98.4F Physical exam: Gen: Laying supine in bed, minimally responsive Pulmonary: Clear to auscultation b/l, poor inspiratory effort. Cardio: +S1, S2, auscultated without murmur. GI: soft, nondistended. Extremities: 2+ radial and dorsalis pedis pulses b/l. No lower extremity edema b /l Neuro:Good tone Plan: STAT EKG, and troponins -rule out ACS STAT ABG Ammonia, lactic acid -patient has metastasis to the liver. rule out hepatic encephalopathy. CT head without contrast- rule out intra-cranial hemorrhage or acute pathology. Transfer to ICU per Dr. Mondragon.
[2018-07-16 12:49] LABS: ARTERIAL BLD GAS O2 SATURATION 97.9 % (90-98.9); ARTERIAL BLOOD GAS BASE EXCESS -13.5 meq/l (-2-2); ARTERIAL BLOOD GAS pH 7.35 (7.35-7.45)
--- NOTE | 2018-07-16 12:52 | PN ---
Progress Note, Physician Chief Complaint: patient seen for tacypneia and lethargy and change in mental status today more lethargic ABG noted metabolic acidosis EKG In morning shows sinus tachycardia rapid response called for change in mental status and lethargy elevated INR at bedside discussed goals of care she wants everything done not ready to discuss dnr morning meds not given today bc of change in mental status - Current Medication List Current Medications: Active Medications Acetaminophen (Tylenol -) 650 mg PO Q6H PRN PRN Reason: PAIN 6-10 Albuterol/Ipratropium (Duoneb -) 1 amp NEB Q4H PRN PRN Reason: SHORTNESS OF BREATH Last Admin: 07/16/18 08:05 Dose: 1 amp Amino Acids (Prosource No Carb Liquid Pkt) 30 ml PO BID@0800,1730 [facility] Last Admin: 07/16/18 10:00 Dose: Not Given Docusate Sodium (Colace -) 100 mg PO DAILY [facility] Last Admin: 07/16/18 11:25 Dose: Not Given Heparin Sodium (Porcine) (Heparin -) 5,000 unit SQ TID [facility] Last Admin: 07/16/18 05:18 Dose: 5,000 unit Piperacillin Sod/Tazobactam (Sod 2.25 gm/ Dextrose) 50 mls @ 100 mls/hr IVPB Q6H-IV [facility]; Protocol Last Admin: 07/16/18 10:00 Dose: 100 mls/hr Sodium Bicarbonate 100 meq/ (Dextrose) 1,100 mls @ 150 mls/hr IV Q7H [facility] Last Admin: 07/16/18 10:01 Dose: Not Given Lactulose (Cephulac (Oral Use)) 20 gm PO BID [facility] Last Admin: 07/16/18 11:25 Dose: Not Given Levetiracetam (Keppra -) 500 mg PO BID [facility] Last Admin: 07/16/18 11:26 Dose: Not Given Metoprolol Succinate (Toprol Xl -) 12.5 mg PO DAILY [facility] Last Admin: 07/16/18 11:26 Dose: Not Given Morphine Sulfate (Morphine Sulfate) 2 mg IVPUSH Q4H PRN PRN Reason: PAIN LEVEL 6-10 Last Admin: 07/16/18 06:38 Dose: 2 mg Oxycodone HCl (Roxicodone -) 10 mg PO Q6H PRN PRN Reason: PAIN 6-10 Last Admin: 07/13/18 21:57 Dose: 10 mg Pantoprazole Sodium (Protonix Iv) 40 mg IVPUSH DAILY [facility] Last Admin: 07/16/18 11:12 Dose: 40 mg Prochlorperazine Maleate (Compazine -) 10 mg PO DAILY [facility] Last Admin: 07/16/18 11:26 Dose: Not Given Sodium Bicarbonate (Sodium Bicarbonate -) 650 mg PO BID [facility] Last Admin: 07/16/18 11:26 Dose: Not Given - Objective Vital Signs: Vital Signs Temperature 99.0 F 07/16/18 06:00 Pulse Rate 117 H 07/16/18 06:00 Respiratory Rate 20 07/16/18 06:00 Blood Pressure 119/75 07/16/18 06:00 O2 Sat by Pulse Oximetry (%) 98 07/15/18 21:00 Constitutional: Yes: Other (lethargic) Cardiovascular: Yes: Regular Rate and Rhythm, Tachycardia, S1, S2 Respiratory: Yes: CTA Bilaterally, Diminished (at bases), Tachypnea Gastrointestinal: Yes: Soft Edema: No Labs: CBC, BMP 07/16/18 07:00 07/16/18 07:00 INR, PTT INR 2.06 (0.83-1.09) H 07/16/18 07:00 Problem List - Problems (1) Change in mental status Assessment/Plan: ct head stat r/o bleed given elevated INR transfer to icu needs respiratory status monitoring- s/p rapid response abg repeated again ph 7.32 co2 20.0, 0xygen 106 on 3 litres of oxgen -metabolic acidosis cxr stat lactic acid and ammonia stat as well aware of the patient condition- full code wants everything done brain MRI was done on 07/13no bleed no infarct ivf fluids on iv zosyn Microbiology 07/10/18 04:00 Urine - Urine - Catheterized Urine Culture - Preliminary Non Lactose Fermenting Gnb Group D Strep Or Entero Coccus appreciate neurology note ammonia level noted on thiamine Microbiology 07/10/18 04:00 Urine - Urine - Catheterized Urine Culture - Final Escherichia Coli Enterococcus Faecalis Code(s): R41.82 - ALTERED MENTAL STATUS, UNSPECIFIED (2) Metastasis from bladder cancer Assessment/Plan: lung mets and liver mets oncology on board MRI brain noted no infarct lesions or bleed elevated INR will need vitamin K wants everything done full code spoke to her Code(s): C79.9 - SECONDARY MALIGNANT NEOPLASM OF UNSPECIFIED SITE; C67.9 - MALIGNANT NEOPLASM OF BLADDER, UNSPECIFIED (3) Acute renal failure Assessment/Plan: ivf hydration d5/1/2 NS with bicarb renal function worse bicarbonate renal consult appricated hyperkalemia improved Code(s): N17.9 - ACUTE KIDNEY FAILURE, UNSPECIFIED (4) Elevated LFTs Assessment/Plan: secondary to liver mets- oncology follow up wants everything done Code(s): R94.5 - ABNORMAL RESULTS OF LIVER FUNCTION STUDIES (5) Hyperkalemia Assessment/Plan: potassium improved Code(s): E87.5 - HYPERKALEMIA (6) Lethargy Assessment/Plan: repeat ct head today stat labs ammonia and lactic acid brain MRI no mets no bleed transfer to icu for respiratory status monitoring full code discuss with wants everything done neurology follow up today broad spectrum abx for UTI Microbiology 07/10/18 04:00 Urine - Urine - Catheterized Urine Culture - Final Escherichia Coli Enterococcus Faecalis already on lactulose Code(s): R53.83 - OTHER FATIGUE (7) Leukocytosis Assessment/Plan: elevated wbc on iv abx Code(s): D72.829 - ELEVATED WHITE BLOOD CELL COUNT, UNSPECIFIED
[2018-07-16 12:55] LABS: ALLENS TEST POSITIVE
[2018-07-16] MEDS ORDERED: DEXTROSE 5%-WATER 100 ML MINI BAG IVPB ONE (14:31)
--- NOTE | 2018-07-16 14:34 | PN ---
Progress Note, Physician History of Present Illness: Pt seen and examined at bedside. He is confused. He was transferred to the ICU. He appears very uncomfortable. - Current Medication List Current Medications: Active Medications Acetaminophen (Tylenol -) 650 mg PO Q6H PRN PRN Reason: PAIN 6-10 Albuterol/Ipratropium (Duoneb -) 1 amp NEB Q4H PRN PRN Reason: SHORTNESS OF BREATH Last Admin: 07/16/18 08:05 Dose: 1 amp Amino Acids (Prosource No Carb Liquid Pkt) 30 ml PO BID@0800,1730 [facility] Last Admin: 07/16/18 10:00 Dose: Not Given Docusate Sodium (Colace -) 100 mg PO DAILY [facility] Last Admin: 07/16/18 11:25 Dose: Not Given Heparin Sodium (Porcine) (Heparin -) 5,000 unit SQ TID [facility] Last Admin: 07/16/18 05:18 Dose: 5,000 unit Piperacillin Sod/Tazobactam (Sod 2.25 gm/ Dextrose) 50 mls @ 100 mls/hr IVPB Q6H-IV [facility]; Protocol Last Admin: 07/16/18 10:00 Dose: 100 mls/hr Sodium Bicarbonate 100 meq/ (Dextrose) 1,100 mls @ 150 mls/hr IV Q7H [facility] Last Admin: 07/16/18 10:01 Dose: Not Given Lactulose (Cephulac (Oral Use)) 20 gm PO BID [facility] Last Admin: 07/16/18 11:25 Dose: Not Given Levetiracetam (Keppra Injection -) 500 mg IVPB BID [facility] Morphine Sulfate (Morphine Sulfate) 2 mg IVPUSH Q4H PRN PRN Reason: PAIN LEVEL 6-10 Last Admin: 07/16/18 06:38 Dose: 2 mg Oxycodone HCl (Roxicodone -) 10 mg PO Q6H PRN PRN Reason: PAIN 6-10 Last Admin: 07/13/18 21:57 Dose: 10 mg Pantoprazole Sodium (Protonix Iv) 40 mg IVPUSH DAILY [facility] Last Admin: 07/16/18 11:12 Dose: 40 mg Prochlorperazine Maleate (Compazine -) 10 mg PO DAILY [facility] Last Admin: 07/16/18 11:26 Dose: Not Given Sodium Bicarbonate (Sodium Bicarbonate -) 650 mg PO BID [facility] Last Admin: 07/16/18 11:26 Dose: Not Given - Objective Vital Signs: Vital Signs Temperature 98.4 F 07/16/18 13:55 Pulse Rate 113 H 07/16/18 13:55 Respiratory Rate 32 H 07/16/18 13:55 Blood Pressure 113/69 07/16/18 13:55 O2 Sat by Pulse Oximetry (%) 98 07/16/18 13:55 Constitutional: Yes: Moderate Distress Eyes: Yes: Conjunctiva Clear Cardiovascular: Yes: S1, S2 Respiratory: Yes: On Nasal O2 Gastrointestinal: Yes: Normal Bowel Sounds, Soft Genitourinary: Yes: Other (ileal conduit) Musculoskeletal: Yes: Muscle Weakness Edema: No Neurological: Yes: Confusion Labs: CBC, BMP 07/16/18 07:00 07/16/18 07:00 INR, PTT INR 2.06 (0.83-1.09) H 07/16/18 07:00 - ....Imaging Chest X-ray: Report Reviewed Cat Scan: Report Reviewed Problem List - Problems (1) Acute renal failure Code(s): N17.9 - ACUTE KIDNEY FAILURE, UNSPECIFIED (2) Change in mental status Code(s): R41.82 - ALTERED MENTAL STATUS, UNSPECIFIED (3) Hyperkalemia Code(s): E87.5 - HYPERKALEMIA (4) Hypotension Code(s): I95.9 - HYPOTENSION, UNSPECIFIED (5) Lethargy Code(s): R53.83 - OTHER FATIGUE Assessment/Plan Current Medications Generic Name Dose Route Start Last Admin Trade Name Joanne PRN Reason Stop Dose Admin Acetaminophen 650 mg 07/11/18 15:40 Tylenol - PO Q6H PRN PAIN 6-10 Albuterol/Ipratropium 1 amp 07/15/18 12:40 07/16/18 08:05 Duoneb - NEB 1 amp Q4H PRN Administration SHORTNESS OF BREATH Amino Acids 30 ml 07/15/18 17:30 07/16/18 10:00 Prosource No Carb Liquid Pkt PO Not Given BID@0800,1730 [facility] Docusate Sodium 100 mg 07/12/18 10:00 07/16/18 11:25 Colace - PO Not Given DAILY [facility] Heparin Sodium (Porcine) 5,000 unit 07/11/18 22:00 07/16/18 05:18 Heparin - SQ 5,000 unit TID [facility] Administration Piperacillin Sod/Tazobactam 50 mls @ 100 mls/hr 07/11/18 21:00 07/16/18 10:00 Sod 2.25 gm/ Dextrose IVPB 100 mls/hr Q6H-IV [facility] Administration Protocol Sodium Bicarbonate 100 meq/ 1,100 mls @ 150 mls/hr 07/15/18 12:35 07/16/18 10 :01 Dextrose IV Not Given Q7H [facility] Lactulose 20 gm 07/11/18 22:00 07/16/18 11:25 Cephulac (Oral Use) PO Not Given BID [facility] Levetiracetam 500 mg 07/16/18 14:15 Keppra Injection - IVPB BID [facility] Morphine Sulfate 2 mg 07/16/18 06:15 07/16/18 06:38 Morphine Sulfate IVPUSH 2 mg Q4H PRN Administration PAIN LEVEL 6-10 Oxycodone HCl 10 mg 07/11/18 15:40 07/13/18 21:57 Roxicodone - PO 10 mg Q6H PRN Administration PAIN 6-10 Pantoprazole Sodium 40 mg 07/12/18 10:00 07/16/18 11:12 Protonix Iv IVPUSH 40 mg DAILY [facility] Administration Prochlorperazine Maleate 10 mg 07/12/18 10:00 07/16/18 11:26 Compazine - PO Not Given DAILY [facility] Sodium Bicarbonate 650 mg 07/11/18 22:00 07/16/18 11:26 Sodium Bicarbonate - PO Not Given BID [facility] Impression 1. DIVINA 2. CKD 3. bladder cancer 4. hx left nephrectomy 5. hypotension 6. altered mental status 7. metastatic disease 8. hyperkalemia improving 9. hx of htn although pt now hypotensive 10. hypotension 11. anemia 12. sepsis 13. epilepsy Plan - renal function is worsening - acidosis is worse - restart bicarb drip - monitor lytes and administrative nursing supervisor - agree with moving pt to ICU - will need to discuss GOC - discussed with ICU team - cont abx - renal dose meds Dr Valdez
[2018-07-16] MEDS: levETIRAcetam 500 MG/5 ML INJECTION VIAL IVPB SCH ×2 (14:35→21:53)
[2018-07-16] MEDS ORDERED: SODIUM BICARBONATE 8.4% - 50 ML ONE (14:41)
[2018-07-16] MEDS ORDERED: DEXTROSE 50%-WATER 25 GM/50 ML DISP.SYRIN ONE (14:43)
[2018-07-16] MEDS ORDERED: SODIUM BICARBONATE 8.4% - 50 MEQ in DEXTROSE 5%-WATER - 1,000 ML IV ONE (15:00)
--- NOTE | 2018-07-16 15:14 | PN ---
Physical Exam: SUBJECTIVE: Patient seen and examined at bedside. Rapid response was called this morning for increased work of breathing and increases lethargy. ABG was done and showed metabolic acidosis. EKG showed sinus tach. He was then transferred to ICU for close monitoring. OBJECTIVE: Vital Signs Period Temp Pulse Resp BP Sys/Hoffman Pulse Ox Last 24 Hr 97.3 F-99.2 F 113-121 20-32 113-130/69-75 98-98 GENERAL: lethargic and confused. HEAD: NC/AT ENT: moist mucous membranes. NECK: supple. LUNGS:CTAB, poor inspiratory effort. HEART: RRR, S1, S2 without murmur, rub or gallop. ABDOMEN: Soft, nontender, nondistended, normoactive bowel sounds EXTREMITIES: 2+ pulses, warm, well-perfused, no edema. NEUROLOGICAL: lethargic and poorly responsive to verbal stimuli. Laboratory Results - last 24 hr 07/16/18 07/16/18 07/16/18 00:22 07:00 07:00 WBC 20.9 H RBC 3.41 L Hgb 8.2 L Hct 27.4 L MCV 80.3 MCH 24.1 L MCHC 30.0 L RDW 18.3 H Plt Count 217 MPV 9.8 Absolute Neuts (auto) 12.1 H Neutrophils % 57.8 D Neutrophils % (Manual) 73.7 Band Neutrophils % 0.0 Lymphocytes % 21.3 D Lymphocytes % (Manual) 9.1 Monocytes % 20.1 H D Monocytes % (Manual) 17 H Eosinophils % 0.2 Eosinophils % (Manual) 0.0 Basophils % 0.6 D Basophils % (Manual) 0.0 Myelocytes % (Man) 0 Promyelocytes % (Man) 0 Blast Cells % (Manual) 0 Nucleated RBC % 1 H Metamyelocytes 0 Hypochromia 0 Platelet Estimate Normal Polychromasia 0 Poikilocytosis 2+ Anisocytosis 1+ Microcytosis 1+ Macrocytosis 1+ Target Cells 2+ PT with INR INR Puncture Site ABG pH ABG pCO2 at Pt Temp ABG pO2 at Pt Temp ABG HCO3 ABG O2 Sat (Measured) ABG O2 Content ABG Base Excess Rishi Test O2 Delivery Device Oxygen Flow Rate Mechanical Rate PEEP Sodium 145 Potassium 4.5 Chloride 112 H Carbon Dioxide 9 L Anion Gap 23 H BUN 56 H Creatinine 2.2 H Creat Clearance w eGFR 31.01 POC Glucometer 132 Random Glucose 37 L* Lactic Acid Calcium 9.9 Total Bilirubin 8.0 H AST 630 H ALT 254 H Alkaline Phosphatase 442 H Ammonia Troponin I < 0.02 Total Protein 5.5 L Albumin 1.6 L 07/16/18 07/16/18 07/16/18 07:00 07:00 07:29 WBC RBC Hgb Hct MCV MCH MCHC RDW Plt Count MPV Absolute Neuts (auto) Neutrophils % Neutrophils % (Manual) Band Neutrophils % Lymphocytes % Lymphocytes % (Manual) Monocytes % Monocytes % (Manual) Eosinophils % Eosinophils % (Manual) Basophils % Basophils % (Manual) Myelocytes % (Man) Promyelocytes % (Man) Blast Cells % (Manual) Nucleated RBC % Metamyelocytes Hypochromia Platelet Estimate Polychromasia Poikilocytosis Anisocytosis Microcytosis Macrocytosis Target Cells PT with INR 23.30 H INR 2.06 H Puncture Site ABG pH ABG pCO2 at Pt Temp ABG pO2 at Pt Temp ABG HCO3 ABG O2 Sat (Measured) ABG O2 Content ABG Base Excess Rishi Test O2 Delivery Device Oxygen Flow Rate Mechanical Rate PEEP Sodium Potassium Chloride Carbon Dioxide Anion Gap BUN Creatinine Creat Clearance w eGFR POC Glucometer 56 Random Glucose Lactic Acid Calcium Total Bilirubin AST ALT Alkaline Phosphatase Ammonia Troponin I Cancelled Total Protein Albumin 07/16/18 07/16/18 07/16/18 09:30 09:45 12:25 WBC RBC Hgb Hct MCV MCH MCHC RDW Plt Count MPV Absolute Neuts (auto) Neutrophils % Neutrophils % (Manual) Band Neutrophils % Lymphocytes % Lymphocytes % (Manual) Monocytes % Monocytes % (Manual) Eosinophils % Eosinophils % (Manual) Basophils % Basophils % (Manual) Myelocytes % (Man) Promyelocytes % (Man) Blast Cells % (Manual) Nucleated RBC % Metamyelocytes Hypochromia Platelet Estimate Polychromasia Poikilocytosis Anisocytosis Microcytosis Macrocytosis Target Cells PT with INR INR Puncture Site Right radial Right radial ABG pH 7.31 L 7.35 ABG pCO2 at Pt Temp 18.3 L* 20.0 L ABG pO2 at Pt Temp 106.0 H 106.0 H ABG HCO3 8.9 L* 10.7 L* ABG O2 Sat (Measured) 97.5 97.9 ABG O2 Content 11.1 L 11.0 L ABG Base Excess -16.1 L* -13.5 L* Rishi Test Positive Positive O2 Delivery Device Nasal cannula Oxygen Flow Rate Yes 2l Mechanical Rate No PEEP 0.0 Sodium Potassium Chloride Carbon Dioxide Anion Gap BUN Creatinine Creat Clearance w eGFR POC Glucometer 84 Random Glucose Lactic Acid Calcium Total Bilirubin AST ALT Alkaline Phosphatase Ammonia Troponin I Total Protein Albumin 07/16/18 07/16/18 07/16/18 13:50 13:55 13:55 WBC RBC Hgb Hct MCV MCH MCHC RDW Plt Count MPV Absolute Neuts (auto) Neutrophils % Neutrophils % (Manual) Band Neutrophils % Lymphocytes % Lymphocytes % (Manual) Monocytes % Monocytes % (Manual) Eosinophils % Eosinophils % (Manual) Basophils % Basophils % (Manual) Myelocytes % (Man) Promyelocytes % (Man) Blast Cells % (Manual) Nucleated RBC % Metamyelocytes Hypochromia Platelet Estimate Polychromasia Poikilocytosis Anisocytosis Microcytosis Macrocytosis Target Cells PT with INR INR Puncture Site ABG pH ABG pCO2 at Pt Temp ABG pO2 at Pt Temp ABG HCO3 ABG O2 Sat (Measured) ABG O2 Content ABG Base Excess Rishi Test O2 Delivery Device Oxygen Flow Rate Mechanical Rate PEEP Sodium Potassium Chloride Carbon Dioxide Anion Gap BUN Creatinine Creat Clearance w eGFR POC Glucometer 69.62895 Random Glucose Lactic Acid 13.8 H* Calcium Total Bilirubin AST ALT Alkaline Phosphatase Ammonia < 10.00 L Troponin I Total Protein Albumin 07/16/18 13:55 WBC RBC Hgb Hct MCV MCH MCHC RDW Plt Count MPV Absolute Neuts (auto) Neutrophils % Neutrophils % (Manual) Band Neutrophils % Lymphocytes % Lymphocytes % (Manual) Monocytes % Monocytes % (Manual) Eosinophils % Eosinophils % (Manual) Basophils % Basophils % (Manual) Myelocytes % (Man) Promyelocytes % (Man) Blast Cells % (Manual) Nucleated RBC % Metamyelocytes Hypochromia Platelet Estimate Polychromasia Poikilocytosis Anisocytosis Microcytosis Macrocytosis Target Cells PT with INR INR Puncture Site ABG pH ABG pCO2 at Pt Temp ABG pO2 at Pt Temp ABG HCO3 ABG O2 Sat (Measured) ABG O2 Content ABG Base Excess Rishi Test O2 Delivery Device Oxygen Flow Rate Mechanical Rate PEEP Sodium Potassium Chloride Carbon Dioxide Anion Gap BUN Creatinine Creat Clearance w eGFR POC Glucometer Random Glucose Lactic Acid Calcium Total Bilirubin AST ALT Alkaline Phosphatase Ammonia Troponin I < 0.02 Total Protein Albumin Active Medications Generic Name Dose Route Start Last Admin Trade Name Freq PRN Reason Stop Dose Admin Acetaminophen 650 mg 07/11/18 15:40 Tylenol - PO Q6H PRN PAIN 6-10 Albuterol/Ipratropium 1 amp 07/15/18 12:40 07/16/18 08:05 Duoneb - NEB 1 amp Q4H PRN Administration SHORTNESS OF BREATH Amino Acids 30 ml 07/15/18 17:30 07/16/18 10:00 Prosource No Carb Liquid Pkt PO Not Given BID@0800,1730 [facility] Docusate Sodium 100 mg 07/12/18 10:00 07/16/18 11:25 Colace - PO Not Given DAILY [facility] Heparin Sodium (Porcine) 5,000 unit 07/11/18 22:00 07/16/18 14:35 Heparin - SQ 5,000 unit TID [facility] Administration Piperacillin Sod/Tazobactam 50 mls @ 100 mls/hr 07/11/18 21:00 07/16/18 14:35 Sod 2.25 gm/ Dextrose IVPB 100 mls/hr Q6H-IV [facility] Administration Protocol Sodium Bicarbonate 100 meq/ 1,100 mls @ 150 mls/hr 07/15/18 12:35 07/16/18 10 :01 Dextrose IV Not Given Q7H [facility] Sodium Bicarbonate 50 meq/ 1,050 mls @ 100 mls/hr 07/16/18 15:00 Dextrose IV 07/17/18 01:29 ONCE ONE Lactulose 20 gm 07/11/18 22:00 07/16/18 11:25 Cephulac (Oral Use) PO Not Given BID [facility] Levetiracetam 500 mg 07/16/18 14:15 07/16/18 14:35 Keppra Injection - IVPB 500 mg BID [facility] Administration Morphine Sulfate 2 mg 07/16/18 06:15 07/16/18 06:38 Morphine Sulfate IVPUSH 2 mg Q4H PRN Administration PAIN LEVEL 6-10 Oxycodone HCl 10 mg 07/11/18 15:40 07/13/18 21:57 Roxicodone - PO 10 mg Q6H PRN Administration PAIN 6-10 Pantoprazole Sodium 40 mg 07/12/18 10:00 07/16/18 11:12 Protonix Iv IVPUSH 40 mg DAILY [facility] Administration Prochlorperazine Maleate 10 mg 07/12/18 10:00 07/16/18 11:26 Compazine - PO Not Given DAILY [facility] Sodium Bicarbonate 650 mg 07/11/18 22:00 07/16/18 11:26 Sodium Bicarbonate - PO Not Given BID [facility] IMAGING: CT/HEAD CT WITHOUT CONTRAST INDICATION: Headache, neck pain CT BRAIN C-. . NONCONTRAST CT OF THE BRAIN. COMPARISON: MRI of the brain July 13, 2018, CT brain C- July 10, 2018 FINDINGS: The CSF spaces are age-appropriate. No evidence of focal, or diffuse atrophic changes. No evidence of hydrocephalus, acute subarachnoid hemorrhage, acute intra-axial or extra-axial fluid collection consistent with subdural or epidural hematoma. No mass effect, midline shift, herniation or edema is present. Normal pike matter white matter differentiation. The cortical sulci, sylvian fissures, perimesencephalic cisterns are not effaced. No CT evidence of acute territorial ischemic changes. Examination of the bone windows show no fracture. The visualized paranasal sinuses, mastoid air cells are not opacified. There is pneumatization of the right petrous apex. IMPRESSION: No evidence of acute intracranial hemorrhage, edema, midline shift, mass effect, or skull fracture. There is no CT evidence of acute territorial infarction. Reported By: Irvin Benavides MD 07/16/18 [id number] ASSESSMENT/PLAN: 57 year old male with significant past medical history of HTN; Bladder CA, last scraping in 2015; ?HIV, previous chart (2013) documents same but repeatedly denies any other medical problems beside HTN and bladder CA; chronic neck and back pain, seizure. was brought to the ED with the chief complaint of feeling weak and tired since a couple of days. Problem List - Problems (1) Change in mental status Assessment/Plan: Repeat CT as above was negative for acute IC bleed. * ammonia levels WNL * Lactic acid elevated. * Continue ABx for sepsis. * IVF * Neuro checks q shift. * Transferred to ICU (2) H/O carcinoma of bladder Assessment/Plan: Awaiting records from [facility] * Will have family meeting to discuss goals of care. (3) Sepsis due to urinary tract infection Assessment/Plan: ID consult appreciated. * Continue Zosyn * Repeat CBC in AM (4) Acute on chronic kidney failure Assessment/Plan: Worsening renal function. * Nephrology consult appreciated. * restart bicarb drip * Will continue to monitor lytes and tile edger. * renal dose meds. * avoid nephrotoxic medication. (5) Seizure disorder Assessment/Plan: Continue Keppra. (6) Acute renal failure Code(s): N17.9 - ACUTE KIDNEY FAILURE, UNSPECIFIED Visit type - Emergency Visit Emergency Visit: Yes ED Registration Date: 07/10/18 Care time: The patient presented to the Emergency Department on the above date and was hospitalized for further evaluation of their emergent condition. - New Patient This patient is new to me today: Yes Date on this admission: 07/17/18 - Critical Care Critical Care patient: Yes Total Critical Care Time (in minutes): 45 Critical Care Statement: The care of this patient involved high complexity decision making to prevent further life threatening deterioration of the patient 's condition and/or to evaluate & treat vital organ system(s) failure or risk of failure. - Discharge Referral Referred to [facility] No
--- NOTE | 2018-07-16 15:51 | CONSULT ---
Consultation: REQUESTING PROVIDER: Dr. Mchugh CONSULT REQUEST: We have been asked to medically evaluate this patient for AMS, lethargy, tachypnea, metabolic acidosis 2/2 metastatic bladder Ca HISTORY OF PRESENT ILLNESS: Pt is a 57 y/o M with PMHx of bladder CA (s/p bladder removal and L nephrectomy 2 months ago) polymetastatic to lungs and liver, sz disorder, HTN, opioid/ cocaine abuse (on methadone), originally brought to ICU on 07/10 w/ AMS and lethargy, upgraded to floors on 07/12, now returned to ICU after being found tachnypeic, in AMS, and in metabolic acidosis (pH 7.31 on ABG, lactate 13.8). REVIEW OF SYSTEMS: Patient lethargic, non-verbal, unable to provide history. PHYSICAL EXAMINATION Vital Signs - 24 hr 07/15/18 07/15/18 07/15/18 18:00 18:31 21:00 Temperature 98.2 F 97.3 F L Pulse Rate 120 H Respiratory 20 20 Rate Blood Pressure 130/69 O2 Sat by Pulse 98 Oximetry (%) 07/16/18 07/16/18 07/16/18 02:00 06:00 13:55 Temperature 99.2 F 99.0 F 98.4 F Pulse Rate 121 H 117 H 113 H Respiratory 20 20 32 H Rate Blood Pressure 120/71 119/75 113/69 O2 Sat by Pulse 98 Oximetry (%) GENERAL: Laying supine in bed, poorly responsive. RESPIRATORY: Clear to auscultation, no compliance with examination, poor effort CARDIAC: tachy, S1S2, +PVCs, no m/r/g appreciated ABDOMINAL: soft, grimaces to deep palpation throughout, ileal conduit in place for evacuation EXTREMITIES: 2+ radial and dorsalis pedis pulses b/l. No lower extremity edema b /l NEUROLOGIC: cannot follow commands, withdraws to plantar stimulation, otherwise no movement of extremities Laboratory Results - last 24 hr 07/16/18 07/16/18 07/16/18 00:22 07:00 07:00 WBC 20.9 H RBC 3.41 L Hgb 8.2 L Hct 27.4 L MCV 80.3 MCH 24.1 L MCHC 30.0 L RDW 18.3 H Plt Count 217 MPV 9.8 Absolute Neuts (auto) 12.1 H Neutrophils % 57.8 D Neutrophils % (Manual) 73.7 Band Neutrophils % 0.0 Lymphocytes % 21.3 D Lymphocytes % (Manual) 9.1 Monocytes % 20.1 H D Monocytes % (Manual) 17 H Eosinophils % 0.2 Eosinophils % (Manual) 0.0 Basophils % 0.6 D Basophils % (Manual) 0.0 Myelocytes % (Man) 0 Promyelocytes % (Man) 0 Blast Cells % (Manual) 0 Nucleated RBC % 1 H Metamyelocytes 0 Hypochromia 0 Platelet Estimate Normal Polychromasia 0 Poikilocytosis 2+ Anisocytosis 1+ Microcytosis 1+ Macrocytosis 1+ Target Cells 2+ PT with INR INR Puncture Site ABG pH ABG pCO2 at Pt Temp ABG pO2 at Pt Temp ABG HCO3 ABG O2 Sat (Measured) ABG O2 Content ABG Base Excess Rishi Test O2 Delivery Device Oxygen Flow Rate Mechanical Rate PEEP Sodium 145 Potassium 4.5 Chloride 112 H Carbon Dioxide 9 L Anion Gap 23 H BUN 56 H Creatinine 2.2 H Creat Clearance w eGFR 31.01 POC Glucometer 132 Random Glucose 37 L* Lactic Acid Calcium 9.9 Total Bilirubin 8.0 H AST 630 H ALT 254 H Alkaline Phosphatase 442 H Ammonia Troponin I < 0.02 Total Protein 5.5 L Albumin 1.6 L 07/16/18 07/16/18 07/16/18 07:00 07:00 07:29 WBC RBC Hgb Hct MCV MCH MCHC RDW Plt Count MPV Absolute Neuts (auto) Neutrophils % Neutrophils % (Manual) Band Neutrophils % Lymphocytes % Lymphocytes % (Manual) Monocytes % Monocytes % (Manual) Eosinophils % Eosinophils % (Manual) Basophils % Basophils % (Manual) Myelocytes % (Man) Promyelocytes % (Man) Blast Cells % (Manual) Nucleated RBC % Metamyelocytes Hypochromia Platelet Estimate Polychromasia Poikilocytosis Anisocytosis Microcytosis Macrocytosis Target Cells PT with INR 23.30 H INR 2.06 H Puncture Site ABG pH ABG pCO2 at Pt Temp ABG pO2 at Pt Temp ABG HCO3 ABG O2 Sat (Measured) ABG O2 Content ABG Base Excess Rishi Test O2 Delivery Device Oxygen Flow Rate Mechanical Rate PEEP Sodium Potassium Chloride Carbon Dioxide Anion Gap BUN Creatinine Creat Clearance w eGFR POC Glucometer 56 Random Glucose Lactic Acid Calcium Total Bilirubin AST ALT Alkaline Phosphatase Ammonia Troponin I Cancelled Total Protein Albumin 07/16/18 07/16/18 07/16/18 09:30 09:45 12:25 WBC RBC Hgb Hct MCV MCH MCHC RDW Plt Count MPV Absolute Neuts (auto) Neutrophils % Neutrophils % (Manual) Band Neutrophils % Lymphocytes % Lymphocytes % (Manual) Monocytes % Monocytes % (Manual) Eosinophils % Eosinophils % (Manual) Basophils % Basophils % (Manual) Myelocytes % (Man) Promyelocytes % (Man) Blast Cells % (Manual) Nucleated RBC % Metamyelocytes Hypochromia Platelet Estimate Polychromasia Poikilocytosis Anisocytosis Microcytosis Macrocytosis Target Cells PT with INR INR Puncture Site Right radial Right radial ABG pH 7.31 L 7.35 ABG pCO2 at Pt Temp 18.3 L* 20.0 L ABG pO2 at Pt Temp 106.0 H 106.0 H ABG HCO3 8.9 L* 10.7 L* ABG O2 Sat (Measured) 97.5 97.9 ABG O2 Content 11.1 L 11.0 L ABG Base Excess -16.1 L* -13.5 L* Rishi Test Positive Positive O2 Delivery Device Nasal cannula Oxygen Flow Rate Yes 2l Mechanical Rate No PEEP 0.0 Sodium Potassium Chloride Carbon Dioxide Anion Gap BUN Creatinine Creat Clearance w eGFR POC Glucometer 84 Random Glucose Lactic Acid Calcium Total Bilirubin AST ALT Alkaline Phosphatase Ammonia Troponin I Total Protein Albumin 07/16/18 07/16/18 07/16/18 13:50 13:55 13:55 WBC RBC Hgb Hct MCV MCH MCHC RDW Plt Count MPV Absolute Neuts (auto) Neutrophils % Neutrophils % (Manual) Band Neutrophils % Lymphocytes % Lymphocytes % (Manual) Monocytes % Monocytes % (Manual) Eosinophils % Eosinophils % (Manual) Basophils % Basophils % (Manual) Myelocytes % (Man) Promyelocytes % (Man) Blast Cells % (Manual) Nucleated RBC % Metamyelocytes Hypochromia Platelet Estimate Polychromasia Poikilocytosis Anisocytosis Microcytosis Macrocytosis Target Cells PT with INR INR Puncture Site ABG pH ABG pCO2 at Pt Temp ABG pO2 at Pt Temp ABG HCO3 ABG O2 Sat (Measured) ABG O2 Content ABG Base Excess Rishi Test O2 Delivery Device Oxygen Flow Rate Mechanical Rate PEEP Sodium Potassium Chloride Carbon Dioxide Anion Gap BUN Creatinine Creat Clearance w eGFR POC Glucometer 69.45261 Random Glucose Lactic Acid 13.8 H* Calcium Total Bilirubin AST ALT Alkaline Phosphatase Ammonia < 10.00 L Troponin I Total Protein Albumin 07/16/18 13:55 WBC RBC Hgb Hct MCV MCH MCHC RDW Plt Count MPV Absolute Neuts (auto) Neutrophils % Neutrophils % (Manual) Band Neutrophils % Lymphocytes % Lymphocytes % (Manual) Monocytes % Monocytes % (Manual) Eosinophils % Eosinophils % (Manual) Basophils % Basophils % (Manual) Myelocytes % (Man) Promyelocytes % (Man) Blast Cells % (Manual) Nucleated RBC % Metamyelocytes Hypochromia Platelet Estimate Polychromasia Poikilocytosis Anisocytosis Microcytosis Macrocytosis Target Cells PT with INR INR Puncture Site ABG pH ABG pCO2 at Pt Temp ABG pO2 at Pt Temp ABG HCO3 ABG O2 Sat (Measured) ABG O2 Content ABG Base Excess Rishi Test O2 Delivery Device Oxygen Flow Rate Mechanical Rate PEEP Sodium Potassium Chloride Carbon Dioxide Anion Gap BUN Creatinine Creat Clearance w eGFR POC Glucometer Random Glucose Lactic Acid Calcium Total Bilirubin AST ALT Alkaline Phosphatase Ammonia Troponin I < 0.02 Total Protein Albumin Active Medications Generic Name Dose Route Start Last Admin Trade Name Freq PRN Reason Stop Dose Admin Acetaminophen 650 mg 07/11/18 15:40 Tylenol - PO Q6H PRN PAIN 6-10 Albuterol/Ipratropium 1 amp 07/15/18 12:40 07/16/18 08:05 Duoneb - NEB 1 amp Q4H PRN Administration SHORTNESS OF BREATH Amino Acids 30 ml 07/15/18 17:30 07/16/18 10:00 Prosource No Carb Liquid Pkt PO Not Given BID@0800,1730 [facility] Docusate Sodium 100 mg 07/12/18 10:00 07/16/18 11:25 Colace - PO Not Given DAILY [facility] Heparin Sodium (Porcine) 5,000 unit 07/11/18 22:00 07/16/18 14:35 Heparin - SQ 5,000 unit TID [facility] Administration Piperacillin Sod/Tazobactam 50 mls @ 100 mls/hr 07/11/18 21:00 07/16/18 14:35 Sod 2.25 gm/ Dextrose IVPB 100 mls/hr Q6H-IV [facility] Administration Protocol Sodium Bicarbonate 100 meq/ 1,100 mls @ 150 mls/hr 07/15/18 12:35 07/16/18 10 :01 Dextrose IV Not Given Q7H [facility] Sodium Bicarbonate 50 meq/ 1,050 mls @ 100 mls/hr 07/16/18 15:00 Dextrose IV 07/17/18 01:29 ONCE ONE Lactulose 20 gm 07/11/18 22:00 07/16/18 11:25 Cephulac (Oral Use) PO Not Given BID [facility] Levetiracetam 500 mg 07/16/18 14:15 07/16/18 14:35 Keppra Injection - IVPB 500 mg BID [facility] Administration Morphine Sulfate 2 mg 07/16/18 06:15 07/16/18 06:38 Morphine Sulfate IVPUSH 2 mg Q4H PRN Administration PAIN LEVEL 6-10 Oxycodone HCl 10 mg 07/11/18 15:40 07/13/18 21:57 Roxicodone - PO 10 mg Q6H PRN Administration PAIN 6-10 Pantoprazole Sodium 40 mg 07/12/18 10:00 07/16/18 11:12 Protonix Iv IVPUSH 40 mg DAILY [facility] Administration Prochlorperazine Maleate 10 mg 07/12/18 10:00 07/16/18 11:26 Compazine - PO Not Given DAILY [facility] Sodium Bicarbonate 650 mg 07/11/18 22:00 07/16/18 11:26 Sodium Bicarbonate - PO Not Given BID [facility] ASSESSMENT/PLAN: 57 y/o M w/ PMHx bladder Ca s/p bladder removal 2 months ago with L nephrectomy , sz disorder, HTN, opioid/cocaine use (on methadone), returned to ICU after upgrade to floor 2/2 metabolic/lactic acidosis, AMS, tachypnea #metabolic acidosis -D5+100meq NaCO3 q7h -extra bolus D5+50meq NaCO3 #sepsis 2/2 UTI -cont Zosyn w/ ID on board #AMS -lactulose -repeat CT head benign #DIVINA on CKD -nephrology on board -fluids as above -DIVINA was resolving, now relapsed -monitor BUN/[place] [employer] #bladder Ca -polymetastatic to lungs liver -oncology on board -discuss GOC w/ family -amino acid parenteral feeding -oxycodone/morphine for pain #Sz disorder -cont Keppra #nausea/vomiting -compazine #Dispo: We will continue to follow the patient in the ICU. Thank you for this consultative opportunity. Visit type - Emergency Visit Emergency Visit: No - New Patient This patient is new to me today: Yes Date on this admission: 07/16/18 - Critical Care Critical Care patient: Yes Total Critical Care Time (in minutes): 40 Critical Care Statement: The care of this patient involved high complexity decision making to prevent further life threatening deterioration of the patient 's condition and/or to evaluate & treat vital organ system(s) failure or risk of failure.
--- NOTE | 2018-07-16 18:00 | PN ---
Problem List - Problems (1) Lethargy Code(s): R53.83 - OTHER FATIGUE (2) Metastasis from bladder cancer Code(s): C79.9 - SECONDARY MALIGNANT NEOPLASM OF UNSPECIFIED SITE; C67.9 - MALIGNANT NEOPLASM OF BLADDER, UNSPECIFIED (3) Hypotension Code(s): I95.9 - HYPOTENSION, UNSPECIFIED (4) Elevated LFTs Code(s): R94.5 - ABNORMAL RESULTS OF LIVER FUNCTION STUDIES (5) UTI (urinary tract infection) Code(s): N39.0 - URINARY TRACT INFECTION, SITE NOT SPECIFIED (6) Seizure Code(s): R56.9 - UNSPECIFIED CONVULSIONS
--- NOTE | 2018-07-16 18:05 | EKG ---
Test Reason : Blood Pressure : / mmHG Vent. Rate : 112 BPM Atrial Rate : 112 BPM P-R Int : 114 ms QRS Dur : 104 ms QT Int : 366 ms P-R-T Axes : 055 028 029 degrees QTc Int : 499 ms SINUS TACHYCARDIA INCOMPLETE RIGHT BUNDLE BRANCH BLOCK NONSPECIFIC ST ABNORMALITY ABNORMAL ECG WHEN COMPARED WITH ECG OF 16-JUL-2018 09:09, NO SIGNIFICANT CHANGE WAS FOUND Confirmed by AMRIT NOONAN MD ([id number]) on 07/16/2018 6:05:30 PM Referred By: Confirmed By:AMRIT NOONAN MD
[2018-07-16 23:01] LABS: ANION GAP 24 MMOL/L (8-16); BLOOD UREA NITROGEN 66 mg/dL (7-18); CALCIUM 8.9 mg/dL (8.5-10.1); CHLORIDE 111 mmol/L (98-107); CO2 11 mmol/L (21-32); CREATININE 2.7 mg/dL (0.55-1.3); GLUCOSE,RANDOM 67 mg/dL (74-106); POTASSIUM 4.6 mmol/L (3.5-5.1); SODIUM 146 mmol/L (136-145)
[2018-07-17] MEDS: PIPERACILLIN/TAZOB 2.25 GM 2.25 GM in DEXTROSE 5%-WATER - 50 ML IVPB SCH ×4 (02:59→20:40)
[2018-07-17 06:45] LABS: BASO % 0.7 % (0-2.0); EOS % 0.3 % (0-4.5); HEMATOCRIT 26.6 % (35.4-49); HEMOGLOBIN 8.1 GM/dL (11.7-16.9); LYMPH % 22.6 % (8-40); MCH 24.3 pg (25.7-33.7); MCHC 30.6 g/dl (32.0-35.9); MEAN CELL VOLUME 79.5 fl (80-96); MEAN PLT VOLUME 10.8 fl (7.5-11.1); MONO % 17.5 % (3.8-10.2); NEUT % 58.9 % (42.8-82.8); PLATELET COUNT 197 K/MM3 (134-434); RBC 3.35 M/mm3 (4.00-5.60); RDW 18.4 % (11.9-15.9); WHITE BLOOD COUNT 22.1 K/mm3 (4.0-10.0)
[2018-07-17 07:04] LABS: INR 2.23 (0.83-1.09); PROTHROMBIN TIME (PATIENT) 25.2 SEC (9.7-13.0)
[2018-07-17] MEDS: SODIUM BICARBONATE 8.4% - 100 MEQ in DEXTROSE 5%-WATER - 1,000 ML IV SCH ×3 (07:21→22:44)
[2018-07-17] MEDS: HEPARIN NA (PORCINE) 5,000 UNITS/ML 1ML VIAL SQ SCH ×3 (07:25→22:01)
[2018-07-17 07:27] LABS: ALBUMIN 1.5 g/dl (3.4-5.0); ALK PHOS 400 U/L (45-117); ANION GAP 20 MMOL/L (8-16); BILIRUBIN,TOTAL 8.2 mg/dL (0.2-1); BLOOD UREA NITROGEN 71 mg/dL (7-18); CALCIUM 8.7 mg/dL (8.5-10.1); CHLORIDE 106 mmol/L (98-107); CO2 15 mmol/L (21-32); CREATININE 2.8 mg/dL (0.55-1.3); GLUCOSE,RANDOM 80 mg/dL (74-106); MAGNESIUM 2.2 mg/dL (1.8-2.4); PHOSPHOROUS 4.3 mg/dL (2.5-4.9); POTASSIUM 4.2 mmol/L (3.5-5.1); SGOT/AST 1424 U/L (15-37); SGPT/ALT 506 U/L (13-61); SODIUM 141 mmol/L (136-145); TOT PROT 5.1 g/dl (6.4-8.2)
[2018-07-17 08:19] LABS: BILIRUBIN,DIRECT 7.1 mg/dL (0.0-0.2)
[2018-07-17] MEDS ORDERED: PIPERACILLIN/TAZOBACTAM 2.25 GM VIAL IVPB ONE ×3 (08:19→20:17)
[2018-07-17] MEDS ORDERED: DEXTROSE 5%-WATER - 50 ML IVPB ONE ×3 (08:20→20:17)
[2018-07-17] MEDS: DOCUSATE SODIUM 100 MG CAPSULE (FP) PO SCH (09:36)
[2018-07-17] MEDS: LACTULOSE 20 GM/30 ML UDC (FOR ORAL USE ONLY) PO SCH ×3 (09:36→22:44)
[2018-07-17] MEDS: AMINO ACIDS/PROTEIN HYDROLYS 30 ML LIQUID.PKT PO SCH ×2 (09:37→16:43)
[2018-07-17] MEDS: PROCHLORPERAZINE MALEATE 5 MG TABLET PO SCH (09:37)
[2018-07-17] MEDS: PANTOPRAZOLE SODIUM 40 MG VIAL IVPUSH SCH (09:38)
[2018-07-17] MEDS: levETIRAcetam 500 MG/5 ML INJECTION VIAL IVPB SCH ×2 (09:38→22:01)
--- NOTE | 2018-07-17 10:16 | PN ---
Progress Note, Physician - Current Medication List Current Medications: Active Medications Acetaminophen (Tylenol -) 650 mg PO Q6H PRN PRN Reason: PAIN 6-10 Albuterol/Ipratropium (Duoneb -) 1 amp NEB Q4H PRN PRN Reason: SHORTNESS OF BREATH Last Admin: 07/16/18 08:05 Dose: 1 amp Amino Acids (Prosource No Carb Liquid Pkt) 30 ml PO BID@0800,1730 [facility] Last Admin: 07/17/18 09:37 Dose: Not Given Docusate Sodium (Colace -) 100 mg PO DAILY [facility] Last Admin: 07/17/18 09:36 Dose: Not Given Heparin Sodium (Porcine) (Heparin -) 5,000 unit SQ TID [facility] Last Admin: 07/17/18 07:25 Dose: 5,000 unit Piperacillin Sod/Tazobactam (Sod 2.25 gm/ Dextrose) 50 mls @ 100 mls/hr IVPB Q6H-IV [facility]; Protocol Last Admin: 07/17/18 09:38 Dose: 100 mls/hr Sodium Bicarbonate 100 meq/ (Dextrose) 1,100 mls @ 150 mls/hr IV Q7H [facility] Last Admin: 07/17/18 07:21 Dose: 150 mls/hr Lactulose (Cephulac (Oral Use)) 20 gm PO BID [facility] Last Admin: 07/17/18 09:36 Dose: Not Given Levetiracetam (Keppra Injection -) 500 mg IVPB BID [facility] Last Admin: 07/17/18 09:38 Dose: 500 mg Morphine Sulfate (Morphine Sulfate) 2 mg IVPUSH Q4H PRN PRN Reason: PAIN LEVEL 6-10 Last Admin: 07/16/18 06:38 Dose: 2 mg Oxycodone HCl (Roxicodone -) 10 mg PO Q6H PRN PRN Reason: PAIN 6-10 Last Admin: 07/13/18 21:57 Dose: 10 mg Pantoprazole Sodium (Protonix Iv) 40 mg IVPUSH DAILY [facility] Last Admin: 07/17/18 09:38 Dose: 40 mg Prochlorperazine Maleate (Compazine -) 10 mg PO DAILY [facility] Last Admin: 07/17/18 09:37 Dose: Not Given - Objective Vital Signs: Vital Signs Temperature 98 F 07/17/18 02:15 Pulse Rate 122 H 07/17/18 10:06 Respiratory Rate 28 H 07/17/18 10:06 Blood Pressure 113/93 07/17/18 10:06 O2 Sat by Pulse Oximetry (%) 96 07/17/18 09:00 Labs: CBC, BMP 07/17/18 05:30 07/17/18 05:30 INR, PTT INR 2.23 (0.83-1.09) H 07/17/18 05:30 Assessment/Plan - Problems (1) Change in mental status Assessment/Plan: ct head stat r/o bleed given elevated INR transfer to icu needs respiratory status monitoring- s/p rapid response abg repeated again ph 7.32 co2 20.0, 0xygen 106 on 3 litres of oxgen -metabolic acidosis cxr stat lactic acid and ammonia stat as well aware of the patient condition- full code wants everything done brain MRI was done on 07/13no bleed no infarct ivf fluids on iv zosyn Microbiology 07/10/18 04:00 Urine - Urine - Catheterized Urine Culture - Preliminary Non Lactose Fermenting Gnb Group D Strep Or Entero Coccus appreciate neurology note ammonia level noted on thiamine Microbiology 07/10/18 04:00 Urine - Urine - Catheterized Urine Culture - Final Escherichia Coli Enterococcus Faecalis Code(s): R41.82 - ALTERED MENTAL STATUS, UNSPECIFIED (2) Metastasis from bladder cancer Assessment/Plan: lung mets and liver mets oncology on board MRI brain noted no infarct lesions or bleed elevated INR will need vitamin K wants everything done full code spoke to her Code(s): C79.9 - SECONDARY MALIGNANT NEOPLASM OF UNSPECIFIED SITE; C67.9 - MALIGNANT NEOPLASM OF BLADDER, UNSPECIFIED (3) Acute renal failure Assessment/Plan: ivf hydration d5/1/2 NS with bicarb renal function worse bicarbonate renal consult appricated hyperkalemia improved Code(s): N17.9 - ACUTE KIDNEY FAILURE, UNSPECIFIED (4) Elevated LFTs Assessment/Plan: secondary to liver mets- oncology follow up wants everything done Code(s): R94.5 - ABNORMAL RESULTS OF LIVER FUNCTION STUDIES (5) Hyperkalemia Assessment/Plan: potassium improved Code(s): E87.5 - HYPERKALEMIA (6) Lethargy Assessment/Plan: repeat ct head noted stat labs ammonia and lactic acid brain MRI no mets no bleed icu for respiratory status monitoring full code discuss with wants everything done neurology follow up today broad spectrum abx for UTI Microbiology 07/10/18 04:00 Urine - Urine - Catheterized Urine Culture - Final Escherichia Coli Enterococcus Faecalis already on lactulose Code(s): R53.83 - OTHER FATIGUE (7) Leukocytosis Assessment/Plan: elevated wbc on iv abx Code(s): D72.829 - ELEVATED WHITE BLOOD CELL COUNT, UNSPECIFIED
[2018-07-17] MEDS: MORPHINE SULFATE 2 MG/ML VIAL IVPUSH PRN (11:03)
[2018-07-17 11:42] LABS: ANISOCYTOSIS 1+; MACROCYTOSIS 1+; TARGET CELLS 1+
[2018-07-17] MEDS ORDERED: LACTULOSE 20 GM/30 ML UDC (FOR RECTAL USE ONLY) PR ONE (11:49)
--- NOTE | 2018-07-17 14:43 | PN ---
Teaching Attending Note Name of Resident: Vic Lozano ATTENDING PHYSICIAN STATEMENT I saw and evaluated the patient. I reviewed the resident's note and discussed the case with the resident. I agree with the resident's findings and plan as documented. SUBJECTIVE: Lethargic and poorly arousable. No improvement is noted in his mental status. No pressors. Remains on Bicarb drip. Apparently a meeting is scheduled with the today. Intake & Output 07/14/18 07/15/18 07/16/18 07/17/18 23:59 23:59 23:59 23:59 Intake Total 3050 3160 2450 1050 Output Total 1200 700 200 300 Balance 1850 2460 2250 750 Last Vital Signs Temp Pulse Resp BP Pulse Ox 99.6 F 119 H 26 H 106/72 96 07/17/18 13:26 07/17/18 13:26 07/17/18 13:26 07/17/18 12:12 07/17/18 09:00 Active Medications Acetaminophen (Tylenol -) 650 mg PO Q6H PRN PRN Reason: PAIN 6-10 Albuterol/Ipratropium (Duoneb -) 1 amp NEB Q4H PRN PRN Reason: SHORTNESS OF BREATH Last Admin: 07/16/18 08:05 Dose: 1 amp Amino Acids (Prosource No Carb Liquid Pkt) 30 ml PO BID@0800,1730 [facility] Last Admin: 07/17/18 09:37 Dose: Not Given Docusate Sodium (Colace -) 100 mg PO DAILY [facility] Last Admin: 07/17/18 09:36 Dose: Not Given Heparin Sodium (Porcine) (Heparin -) 5,000 unit SQ TID [facility] Last Admin: 07/17/18 13:04 Dose: 5,000 unit Piperacillin Sod/Tazobactam (Sod 2.25 gm/ Dextrose) 50 mls @ 100 mls/hr IVPB Q6H-IV [facility]; Protocol Last Admin: 07/17/18 09:38 Dose: 100 mls/hr Sodium Bicarbonate 100 meq/ (Dextrose) 1,100 mls @ 150 mls/hr IV Q7H [facility] Last Admin: 07/17/18 12:58 Dose: 150 mls/hr Lactulose (Cephulac (Oral Use)) 20 gm PO BID [facility] Last Admin: 07/17/18 09:36 Dose: Not Given Levetiracetam (Keppra Injection -) 500 mg IVPB BID [facility] Last Admin: 07/17/18 09:38 Dose: 500 mg Morphine Sulfate (Morphine Sulfate) 2 mg IVPUSH Q4H PRN PRN Reason: PAIN LEVEL 6-10 Last Admin: 07/17/18 11:03 Dose: 2 mg Oxycodone HCl (Roxicodone -) 10 mg PO Q6H PRN PRN Reason: PAIN 6-10 Last Admin: 07/13/18 21:57 Dose: 10 mg Pantoprazole Sodium (Protonix Iv) 40 mg IVPUSH DAILY [facility] Last Admin: 07/17/18 09:38 Dose: 40 mg Prochlorperazine Maleate (Compazine -) 10 mg PO DAILY [facility] Last Admin: 07/17/18 09:37 Dose: Not Given Assessment/Plan (1) Change in mental status Code(s): R41.82 - ALTERED MENTAL STATUS, UNSPECIFIED (2) Metastasis from bladder cancer Code(s): C79.9 - SECONDARY MALIGNANT NEOPLASM OF UNSPECIFIED SITE; C67.9 - MALIGNANT NEOPLASM OF BLADDER, UNSPECIFIED (3) Acute renal failure Code(s): N17.9 - ACUTE KIDNEY FAILURE, UNSPECIFIED (4) Elevated LFTs Code(s): R94.5 - ABNORMAL RESULTS OF LIVER FUNCTION STUDIES (5) Hyperkalemia Assessment/Plan: (6) Lethargy Code(s): R53.83 - OTHER FATIGUE (7) Leukocytosis Code(s): D72.829 - ELEVATED WHITE BLOOD CELL COUNT, UNSPECIFIED PLAN: Continue IV Bicarb drip per Renal Follow chemistry O2 as needed to maintain saturation Aspiration precautions Minimize sedation so we can assess mental status BD TX PRN ABX coverage Follow any remaining cultures Will need to delineate further GOC with his given overall grave prognosis Dr Felix Critical care time spent in reviewing chart, evaluating patient and formulating plan - 36 minutes.
--- NOTE | 2018-07-17 14:48 | PN ---
Physical Exam: SUBJECTIVE: Patient seen and examined at bedside. Awake but obtunded and non- verbal. OBJECTIVE: Vital Signs Period Temp Pulse Resp BP Sys/Hoffman Pulse Ox Last 24 Hr 98 F-99.6 F 111-124 26-31 103-125/65-93 96-96 GENERAL: Awake, obtunded, no response to verbal stimuli, eyes do not track, withdraws from vigorous sternal rub HEAD: NC/AT EYES: PERRLA LUNGS: Anterior greenberg without adventitious sounds when patient breathes normally, otherwise unable to assess HEART: Tachycardic, S1S2, +PVCs, no m/r/g appreciated ABDOMINAL: soft, grimaces to deep palpation throughout, tympanitic, fluid-filled , ileal conduit in place for evacuation EXTREMITIES: 2+ radial and dorsalis pedis pulses b/l. No lower extremity edema b /l NEUROLOGIC: cannot follow commands, withdraws to plantar stimulation, otherwise no movement of extremities Laboratory Results - last 24 hr 07/16/18 07/16/18 07/16/18 13:55 13:55 13:55 WBC RBC Hgb Hct MCV MCH MCHC RDW Plt Count MPV Absolute Neuts (auto) Total Counted Neutrophils % Neutrophils % (Manual) Band Neutrophils % Lymphocytes % Lymphocytes % (Manual) Monocytes % Monocytes % (Manual) Eosinophils % Eosinophils % (Manual) Basophils % Basophils % (Manual) Nucleated RBC % Hypochromia Anisocytosis Microcytosis Macrocytosis Target Cells PT with INR INR Sodium Potassium Chloride Carbon Dioxide Anion Gap BUN Creatinine Creat Clearance w eGFR POC Glucometer Random Glucose Lactic Acid 13.8 H* Calcium Phosphorus Magnesium Total Bilirubin Direct Bilirubin AST ALT Alkaline Phosphatase Ammonia < 10.00 L Troponin I < 0.02 Total Protein Albumin 07/16/18 07/16/18 07/16/18 20:16 22:00 22:00 WBC RBC Hgb Hct MCV MCH MCHC RDW Plt Count MPV Absolute Neuts (auto) Total Counted Neutrophils % Neutrophils % (Manual) Band Neutrophils % Lymphocytes % Lymphocytes % (Manual) Monocytes % Monocytes % (Manual) Eosinophils % Eosinophils % (Manual) Basophils % Basophils % (Manual) Nucleated RBC % Hypochromia Anisocytosis Microcytosis Macrocytosis Target Cells PT with INR INR Sodium Potassium Chloride Carbon Dioxide Anion Gap BUN Creatinine Creat Clearance w eGFR POC Glucometer 85.44323 Random Glucose Lactic Acid 15.0 H* Calcium Phosphorus Magnesium Total Bilirubin Direct Bilirubin AST ALT Alkaline Phosphatase Ammonia 18.30 Troponin I Total Protein Albumin 07/16/18 07/17/18 07/17/18 22:00 02:49 05:30 WBC 22.1 H RBC 3.35 L Hgb 8.1 L Hct 26.6 L MCV 79.5 L MCH 24.3 L MCHC 30.6 L RDW 18.4 H Plt Count 197 MPV 10.8 D Absolute Neuts (auto) 13.1 H Total Counted 100 Neutrophils % 58.9 Neutrophils % (Manual) 73.0 Band Neutrophils % 1.0 Lymphocytes % 22.6 Lymphocytes % (Manual) 12.0 D Monocytes % 17.5 H Monocytes % (Manual) 12 H Eosinophils % 0.3 Eosinophils % (Manual) 1.0 D Basophils % 0.7 Basophils % (Manual) 1.0 D Nucleated RBC % 1 H Hypochromia 1+ Anisocytosis 1+ Microcytosis 1+ Macrocytosis 1+ Target Cells 1+ PT with INR INR Sodium 146 H Potassium 4.6 Chloride 111 H Carbon Dioxide 11 L Anion Gap 24 H BUN 66 H Creatinine 2.7 H Creat Clearance w eGFR 24.48 POC Glucometer 124.19737 Random Glucose 67 L Lactic Acid Calcium 8.9 Phosphorus Magnesium Total Bilirubin Direct Bilirubin AST ALT Alkaline Phosphatase Ammonia Troponin I Total Protein Albumin 07/17/18 07/17/18 07/17/18 05:30 05:30 10:10 WBC RBC Hgb Hct MCV MCH MCHC RDW Plt Count MPV Absolute Neuts (auto) Total Counted Neutrophils % Neutrophils % (Manual) Band Neutrophils % Lymphocytes % Lymphocytes % (Manual) Monocytes % Monocytes % (Manual) Eosinophils % Eosinophils % (Manual) Basophils % Basophils % (Manual) Nucleated RBC % Hypochromia Anisocytosis Microcytosis Macrocytosis Target Cells PT with INR 25.20 H INR 2.23 H Sodium 141 Potassium 4.2 Chloride 106 Carbon Dioxide 15 L Anion Gap 20 H BUN 71 H Creatinine 2.8 H Creat Clearance w eGFR 23.47 POC Glucometer Random Glucose 80 Lactic Acid 12.6 H* Calcium 8.7 Phosphorus 4.3 Magnesium 2.2 Total Bilirubin 8.2 H Direct Bilirubin 7.1 H AST 1424 H ALT 506 H Alkaline Phosphatase 400 H Ammonia Troponin I Total Protein 5.1 L Albumin 1.5 L Active Medications Generic Name Dose Route Start Last Admin Trade Name Freq PRN Reason Stop Dose Admin Acetaminophen 650 mg 07/11/18 15:40 Tylenol - PO Q6H PRN PAIN 6-10 Albuterol/Ipratropium 1 amp 07/15/18 12:40 07/16/18 08:05 Duoneb - NEB 1 amp Q4H PRN Administration SHORTNESS OF BREATH Amino Acids 30 ml 07/15/18 17:30 07/17/18 09:37 Prosource No Carb Liquid Pkt PO Not Given BID@0800,1730 [facility] Docusate Sodium 100 mg 07/12/18 10:00 07/17/18 09:36 Colace - PO Not Given DAILY [facility] Heparin Sodium (Porcine) 5,000 unit 07/11/18 22:00 07/17/18 13:04 Heparin - SQ 5,000 unit TID [facility] Administration Piperacillin Sod/Tazobactam 50 mls @ 100 mls/hr 07/11/18 21:00 07/17/18 09:38 Sod 2.25 gm/ Dextrose IVPB 100 mls/hr Q6H-IV [facility] Administration Protocol Sodium Bicarbonate 100 meq/ 1,100 mls @ 150 mls/hr 07/15/18 12:35 07/17/18 12 :58 Dextrose IV 150 mls/hr Q7H [facility] Administration Lactulose 20 gm 07/11/18 22:00 07/17/18 09:36 Cephulac (Oral Use) PO Not Given BID [facility] Levetiracetam 500 mg 07/16/18 14:15 07/17/18 09:38 Keppra Injection - IVPB 500 mg BID [facility] Administration Morphine Sulfate 2 mg 07/16/18 06:15 07/17/18 11:03 Morphine Sulfate IVPUSH 2 mg Q4H PRN Administration PAIN LEVEL 6-10 Oxycodone HCl 10 mg 07/11/18 15:40 07/13/18 21:57 Roxicodone - PO 10 mg Q6H PRN Administration PAIN 6-10 Pantoprazole Sodium 40 mg 07/12/18 10:00 07/17/18 09:38 Protonix Iv IVPUSH 40 mg DAILY [facility] Administration Prochlorperazine Maleate 10 mg 07/12/18 10:00 07/17/18 09:37 Compazine - PO Not Given DAILY [facility] ASSESSMENT/PLAN: 57 y/o M w/ PMHx bladder Ca s/p bladder removal 2 months ago with L nephrectomy , sz disorder, HTN, opioid/cocaine use (on methadone), returned to ICU after upgrade to floor 2/2 metabolic/lactic acidosis, AMS, tachypnea #metabolic acidosis -D5+100meq NaCO3 q7h -lactate peaked at 15, now 12.6 #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 -oncology on board -discuss GOC w/ family -amino acid parenteral feeding -oxycodone/morphine for pain -NG tube may be necessary for PO intake but Pt has coagulopathy with INR 2.23 likely 2/2 to liver masses -unclear why Pt underwent oncologic Sx given metastatic condition -records from consultation at [facility] August 2017 recommended uterectomy +/- nephrectomy but imaging did not suggest metastasis at that time -will seek interval records of imaging, oncologic, and surgical care Sep 08 to present from [facility] #LFTs -AST 1424, ALT 506, Alk Phos 400, T Bili 8.2 D Bili 7.1, T Protein 5.1 Albumin 1.5 -known liver masses -Pt may have ascites based on PE but would require serial paracentesis w/ bleeding risk -GOC meeting essential #sepsis 2/2 UTI -cont Zosyn w/ ID on board #AMS -lactulose could not be given orally, therefore 200g MO administered -repeat CT head benign #DIVINA on CKD -nephrology on board -fluids as above -DIVINA was resolving, now relapsed -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
--- NOTE | 2018-07-17 15:23 | PN ---
Physical Exam: SUBJECTIVE: Patient seen and examined at beside. More lethargic today. Very difficult to arouse. Worsening mental status. No overnight events. Meeting today with to discuss GOC. OBJECTIVE: Vital Signs Period Temp Pulse Resp BP Sys/Hoffman Pulse Ox Last 24 Hr 98 F-99.6 F 111-124 26-31 103-125/65-93 96-96 GENERAL: awake but no response to verbal stimuli, NAD HEAD: NC/AT EYES: PERRLA NECK: supple. LUNGS: diminished breath sounds bilaterally. HEART: Tachycardic, S1, S2 without murmur, rub or gallop. ABDOMEN: Soft, grimmace to palpation, distended. EXTREMITIES: 2+ pulses, warm, well-perfused, LE edema NEUROLOGICAL: flacid weakness, minimally responsive to painful stimuli. Laboratory Results - last 24 hr 07/16/18 07/16/18 07/16/18 20:16 22:00 22:00 WBC RBC Hgb Hct MCV MCH MCHC RDW Plt Count MPV Absolute Neuts (auto) Total Counted Neutrophils % Neutrophils % (Manual) Band Neutrophils % Lymphocytes % Lymphocytes % (Manual) Monocytes % Monocytes % (Manual) Eosinophils % Eosinophils % (Manual) Basophils % Basophils % (Manual) Nucleated RBC % Hypochromia Anisocytosis Microcytosis Macrocytosis Target Cells PT with INR INR Sodium Potassium Chloride Carbon Dioxide Anion Gap BUN Creatinine Creat Clearance w eGFR POC Glucometer 85.93382 Random Glucose Lactic Acid 15.0 H* Calcium Phosphorus Magnesium Total Bilirubin Direct Bilirubin AST ALT Alkaline Phosphatase Ammonia 18.30 Total Protein Albumin 07/16/18 07/17/18 07/17/18 22:00 02:49 05:30 WBC 22.1 H RBC 3.35 L Hgb 8.1 L Hct 26.6 L MCV 79.5 L MCH 24.3 L MCHC 30.6 L RDW 18.4 H Plt Count 197 MPV 10.8 D Absolute Neuts (auto) 13.1 H Total Counted 100 Neutrophils % 58.9 Neutrophils % (Manual) 73.0 Band Neutrophils % 1.0 Lymphocytes % 22.6 Lymphocytes % (Manual) 12.0 D Monocytes % 17.5 H Monocytes % (Manual) 12 H Eosinophils % 0.3 Eosinophils % (Manual) 1.0 D Basophils % 0.7 Basophils % (Manual) 1.0 D Nucleated RBC % 1 H Hypochromia 1+ Anisocytosis 1+ Microcytosis 1+ Macrocytosis 1+ Target Cells 1+ PT with INR INR Sodium 146 H Potassium 4.6 Chloride 111 H Carbon Dioxide 11 L Anion Gap 24 H BUN 66 H Creatinine 2.7 H Creat Clearance w eGFR 24.48 POC Glucometer 124.15965 Random Glucose 67 L Lactic Acid Calcium 8.9 Phosphorus Magnesium Total Bilirubin Direct Bilirubin AST ALT Alkaline Phosphatase Ammonia Total Protein Albumin 07/17/18 07/17/18 07/17/18 05:30 05:30 10:10 WBC RBC Hgb Hct MCV MCH MCHC RDW Plt Count MPV Absolute Neuts (auto) Total Counted Neutrophils % Neutrophils % (Manual) Band Neutrophils % Lymphocytes % Lymphocytes % (Manual) Monocytes % Monocytes % (Manual) Eosinophils % Eosinophils % (Manual) Basophils % Basophils % (Manual) Nucleated RBC % Hypochromia Anisocytosis Microcytosis Macrocytosis Target Cells PT with INR 25.20 H INR 2.23 H Sodium 141 Potassium 4.2 Chloride 106 Carbon Dioxide 15 L Anion Gap 20 H BUN 71 H Creatinine 2.8 H Creat Clearance w eGFR 23.47 POC Glucometer Random Glucose 80 Lactic Acid 12.6 H* Calcium 8.7 Phosphorus 4.3 Magnesium 2.2 Total Bilirubin 8.2 H Direct Bilirubin 7.1 H AST 1424 H ALT 506 H Alkaline Phosphatase 400 H Ammonia Total Protein 5.1 L Albumin 1.5 L Active Medications Generic Name Dose Route Start Last Admin Trade Name Freq PRN Reason Stop Dose Admin Acetaminophen 650 mg 07/11/18 15:40 Tylenol - PO Q6H PRN PAIN 6-10 Albuterol/Ipratropium 1 amp 07/15/18 12:40 07/16/18 08:05 Duoneb - NEB 1 amp Q4H PRN Administration SHORTNESS OF BREATH Amino Acids 30 ml 07/15/18 17:30 07/17/18 09:37 Prosource No Carb Liquid Pkt PO Not Given BID@0800,1730 [facility] Docusate Sodium 100 mg 07/12/18 10:00 07/17/18 09:36 Colace - PO Not Given DAILY [facility] Heparin Sodium (Porcine) 5,000 unit 07/11/18 22:00 07/17/18 13:04 Heparin - SQ 5,000 unit TID [facility] Administration Piperacillin Sod/Tazobactam 50 mls @ 100 mls/hr 07/11/18 21:00 07/17/18 15:04 Sod 2.25 gm/ Dextrose IVPB 100 mls/hr Q6H-IV [facility] Administration Protocol Sodium Bicarbonate 100 meq/ 1,100 mls @ 150 mls/hr 07/15/18 12:35 07/17/18 12 :58 Dextrose IV 150 mls/hr Q7H [facility] Administration Lactulose 20 gm 07/11/18 22:00 07/17/18 09:36 Cephulac (Oral Use) PO Not Given BID [facility] Levetiracetam 500 mg 07/16/18 14:15 07/17/18 09:38 Keppra Injection - IVPB 500 mg BID [facility] Administration Morphine Sulfate 2 mg 07/16/18 06:15 07/17/18 11:03 Morphine Sulfate IVPUSH 2 mg Q4H PRN Administration PAIN LEVEL 6-10 Oxycodone HCl 10 mg 07/11/18 15:40 07/13/18 21:57 Roxicodone - PO 10 mg Q6H PRN Administration PAIN 6-10 Pantoprazole Sodium 40 mg 07/12/18 10:00 07/17/18 09:38 Protonix Iv IVPUSH 40 mg DAILY [facility] Administration Prochlorperazine Maleate 10 mg 07/12/18 10:00 07/17/18 09:37 Compazine - PO Not Given DAILY [facility] ASSESSMENT/PLAN: 57 yo M with PMhx of HTN , Bladder and renal cell ca presented to ED with lethargy. Admitted to sepsis 2/2 to UTI. Problem List - Problems (1) H/O carcinoma of bladder Assessment/Plan: Awaiting records from [facility] * Will have family meeting today to discuss goals of care. (2) Change in mental status Assessment/Plan: Repeat CT as above was negative for acute IC bleed. * ammonia levels WNL * Lactic acid elevated. * Continue ABx for sepsis. * IVF * Neuro checks q shift. (3) Sepsis due to urinary tract infection Assessment/Plan: ID consult appreciated. * Continue Zosyn * Repeat CBC in AM (4) Acute on chronic kidney failure Assessment/Plan: Worsening renal function. * Nephrology consult appreciated. * continue bicarb drip * Will continue to monitor lytes and buttonhole maker hand. * renal dose meds. * avoid nephrotoxic medication. (5) Seizure disorder Assessment/Plan: Continue Keppra. Visit type - Emergency Visit Emergency Visit: Yes ED Registration Date: 07/10/18 Care time: The patient presented to the Emergency Department on the above date and was hospitalized for further evaluation of their emergent condition. - New Patient This patient is new to me today: No - Critical Care Critical Care patient: Yes Total Critical Care Time (in minutes): 47 Critical Care Statement: The care of this patient involved high complexity decision making to prevent further life threatening deterioration of the patient 's condition and/or to evaluate & treat vital organ system(s) failure or risk of failure.
--- NOTE | 2018-07-17 15:27 | PN ---
Progress Note (short form) - Note Progress Note: Patient seen and examined Poorly responsive non Communicative Lethargic Last Vital Signs Temp Pulse Resp BP Pulse Ox 99.6 F 119 H 26 H 106/72 96 07/17/18 13:26 07/17/18 13:26 07/17/18 13:26 07/17/18 12:12 07/17/18 09:00 CBC, BMP 07/17/18 05:30 07/17/18 05:30 INR, PTT INR 2.23 (0.83-1.09) H 07/17/18 05:30 Abnormal Lab Results 07/16/18 07/16/18 07/17/18 22:00 22:00 05:30 WBC 22.1 H RBC 3.35 L Hgb 8.1 L Hct 26.6 L MCV 79.5 L MCH 24.3 L MCHC 30.6 L RDW 18.4 H Absolute Neuts (auto) 13.1 H Monocytes % 17.5 H Monocytes % (Manual) 12 H Nucleated RBC % 1 H PT with INR INR Sodium 146 H Chloride 111 H Carbon Dioxide 11 L Anion Gap 24 H BUN 66 H Creatinine 2.7 H Random Glucose 67 L Lactic Acid 15.0 H* Total Bilirubin Direct Bilirubin AST ALT Alkaline Phosphatase Total Protein Albumin 07/17/18 07/17/18 07/17/18 05:30 05:30 10:10 WBC RBC Hgb Hct MCV MCH MCHC RDW Absolute Neuts (auto) Monocytes % Monocytes % (Manual) Nucleated RBC % PT with INR 25.20 H INR 2.23 H Sodium Chloride Carbon Dioxide 15 L Anion Gap 20 H BUN 71 H Creatinine 2.8 H Random Glucose Lactic Acid 12.6 H* Total Bilirubin 8.2 H Direct Bilirubin 7.1 H AST 1424 H ALT 506 H Alkaline Phosphatase 400 H Total Protein 5.1 L Albumin 1.5 L Icteric Current Medications Generic Name Dose Route Start Last Admin Trade Name Freq PRN Reason Stop Dose Admin Acetaminophen 650 mg 07/11/18 15:40 Tylenol - PO Q6H PRN PAIN 6-10 Albuterol/Ipratropium 1 amp 07/15/18 12:40 07/16/18 08:05 Duoneb - NEB 1 amp Q4H PRN Administration SHORTNESS OF BREATH Amino Acids 30 ml 07/15/18 17:30 07/17/18 09:37 Prosource No Carb Liquid Pkt PO Not Given BID@0800,1730 [facility] Docusate Sodium 100 mg 07/12/18 10:00 07/17/18 09:36 Colace - PO Not Given DAILY [facility] Heparin Sodium (Porcine) 5,000 unit 07/11/18 22:00 07/17/18 13:04 Heparin - SQ 5,000 unit TID [facility] Administration Piperacillin Sod/Tazobactam 50 mls @ 100 mls/hr 07/11/18 21:00 07/17/18 15:04 Sod 2.25 gm/ Dextrose IVPB 100 mls/hr Q6H-IV [facility] Administration Protocol Sodium Bicarbonate 100 meq/ 1,100 mls @ 150 mls/hr 07/15/18 12:35 07/17/18 12 :58 Dextrose IV 150 mls/hr Q7H [facility] Administration Lactulose 20 gm 07/11/18 22:00 07/17/18 09:36 Cephulac (Oral Use) PO Not Given BID [facility] Levetiracetam 500 mg 07/16/18 14:15 07/17/18 09:38 Keppra Injection - IVPB 500 mg BID [facility] Administration Morphine Sulfate 2 mg 07/16/18 06:15 07/17/18 11:03 Morphine Sulfate IVPUSH 2 mg Q4H PRN Administration PAIN LEVEL 6-10 Oxycodone HCl 10 mg 07/11/18 15:40 07/13/18 21:57 Roxicodone - PO 10 mg Q6H PRN Administration PAIN 6-10 Pantoprazole Sodium 40 mg 07/12/18 10:00 07/17/18 09:38 Protonix Iv IVPUSH 40 mg DAILY [facility] Administration Prochlorperazine Maleate 10 mg 07/12/18 10:00 07/17/18 09:37 Compazine - PO Not Given DAILY [facility] Cor: RSR, No murmurs, No gallops Lungs diminished breath sounds Abd:distended , ascites Ext: edema,SCD Skin: No rashes, Integument intact Impression Metastatic bladder ca - lung, liver mets Liver failure Coagulopathy secondary to liver disease Sepsis DIVINA GOC to be discussed with family .
--- NOTE | 2018-07-17 16:47 | PN ---
Progress Note, Physician History of Present Illness: Pt seen and examined at bedside. He remains lethargic. Pt remains in the ICU. - Current Medication List Current Medications: Active Medications Acetaminophen (Tylenol -) 650 mg PO Q6H PRN PRN Reason: PAIN 6-10 Albuterol/Ipratropium (Duoneb -) 1 amp NEB Q4H PRN PRN Reason: SHORTNESS OF BREATH Last Admin: 07/16/18 08:05 Dose: 1 amp Amino Acids (Prosource No Carb Liquid Pkt) 30 ml PO BID@0800,1730 [facility] Last Admin: 07/17/18 09:37 Dose: Not Given Docusate Sodium (Colace -) 100 mg PO DAILY [facility] Last Admin: 07/17/18 09:36 Dose: Not Given Heparin Sodium (Porcine) (Heparin -) 5,000 unit SQ TID [facility] Last Admin: 07/17/18 13:04 Dose: 5,000 unit Piperacillin Sod/Tazobactam (Sod 2.25 gm/ Dextrose) 50 mls @ 100 mls/hr IVPB Q6H-IV [facility]; Protocol Last Admin: 07/17/18 15:04 Dose: 100 mls/hr Sodium Bicarbonate 100 meq/ (Dextrose) 1,100 mls @ 150 mls/hr IV Q7H [facility] Last Admin: 07/17/18 12:58 Dose: 150 mls/hr Lactulose (Cephulac (Oral Use)) 20 gm PO BID [facility] Last Admin: 07/17/18 09:36 Dose: Not Given Levetiracetam (Keppra Injection -) 500 mg IVPB BID [facility] Last Admin: 07/17/18 09:38 Dose: 500 mg Morphine Sulfate (Morphine Sulfate) 2 mg IVPUSH Q4H PRN PRN Reason: PAIN LEVEL 6-10 Last Admin: 07/17/18 11:03 Dose: 2 mg Oxycodone HCl (Roxicodone -) 10 mg PO Q6H PRN PRN Reason: PAIN 6-10 Last Admin: 07/13/18 21:57 Dose: 10 mg Pantoprazole Sodium (Protonix Iv) 40 mg IVPUSH DAILY [facility] Last Admin: 07/17/18 09:38 Dose: 40 mg Prochlorperazine Maleate (Compazine -) 10 mg PO DAILY [facility] Last Admin: 07/17/18 09:37 Dose: Not Given - Objective Vital Signs: Vital Signs Temperature 99.6 F 07/17/18 13:26 Pulse Rate 122 H 07/17/18 16:00 Respiratory Rate 30 H 07/17/18 16:00 Blood Pressure 133/88 07/17/18 16:00 O2 Sat by Pulse Oximetry (%) 96 07/17/18 09:00 Constitutional: Yes: Calm, Mild Distress Cardiovascular: Yes: Tachycardia, S1, S2 Respiratory: Yes: On Nasal O2 Gastrointestinal: Yes: Distention Genitourinary: Yes: Other (ileal conduit) Musculoskeletal: Yes: Muscle Weakness Edema: LLE: Trace, RLE: Trace Neurological: Yes: Lethargy Labs: CBC, BMP 07/17/18 05:30 07/17/18 05:30 INR, PTT INR 2.23 (0.83-1.09) H 07/17/18 05:30 Problem List - Problems (1) Acute renal failure Code(s): N17.9 - ACUTE KIDNEY FAILURE, UNSPECIFIED (2) Change in mental status Code(s): R41.82 - ALTERED MENTAL STATUS, UNSPECIFIED Qualifiers: Altered mental status type: unspecified Qualified Code(s): R41.82 - Altered mental status, unspecified (3) Hyperkalemia Code(s): E87.5 - HYPERKALEMIA (4) Hypotension Code(s): I95.9 - HYPOTENSION, UNSPECIFIED (5) Lethargy Code(s): R53.83 - OTHER FATIGUE Assessment/Plan Current Medications Generic Name Dose Route Start Last Admin Trade Name Joanne PRN Reason Stop Dose Admin Acetaminophen 650 mg 07/11/18 15:40 Tylenol - PO Q6H PRN PAIN 6-10 Albuterol/Ipratropium 1 amp 07/15/18 12:40 07/16/18 08:05 Duoneb - NEB 1 amp Q4H PRN Administration SHORTNESS OF BREATH Amino Acids 30 ml 07/15/18 17:30 07/17/18 16:43 Prosource No Carb Liquid Pkt PO Not Given BID@0800,1730 [facility] Docusate Sodium 100 mg 07/12/18 10:00 07/17/18 09:36 Colace - PO Not Given DAILY [facility] Heparin Sodium (Porcine) 5,000 unit 07/11/18 22:00 07/17/18 13:04 Heparin - SQ 5,000 unit TID [facility] Administration Piperacillin Sod/Tazobactam 50 mls @ 100 mls/hr 07/11/18 21:00 07/17/18 15:04 Sod 2.25 gm/ Dextrose IVPB 100 mls/hr Q6H-IV [facility] Administration Protocol Sodium Bicarbonate 100 meq/ 1,100 mls @ 150 mls/hr 07/15/18 12:35 07/17/18 12 :58 Dextrose IV 150 mls/hr Q7H [facility] Administration Lactulose 20 gm 07/11/18 22:00 07/17/18 09:36 Cephulac (Oral Use) PO Not Given BID [facility] Levetiracetam 500 mg 07/16/18 14:15 07/17/18 09:38 Keppra Injection - IVPB 500 mg BID [facility] Administration Morphine Sulfate 2 mg 07/16/18 06:15 07/17/18 11:03 Morphine Sulfate IVPUSH 2 mg Q4H PRN Administration PAIN LEVEL 6-10 Oxycodone HCl 10 mg 07/11/18 15:40 07/13/18 21:57 Roxicodone - PO 10 mg Q6H PRN Administration PAIN 6-10 Pantoprazole Sodium 40 mg 07/12/18 10:00 07/17/18 09:38 Protonix Iv IVPUSH 40 mg DAILY [facility] Administration Prochlorperazine Maleate 10 mg 07/12/18 10:00 07/17/18 09:37 Compazine - PO Not Given DAILY [facility] Impression 1. DIVINA 2. CKD 3. bladder cancer 4. hx left nephrectomy 5. hypotension 6. altered mental status 7. metastatic disease 8. hyperkalemia improving 9. hx of htn although pt now hypotensive 10. hypotension 11. anemia 12. sepsis 13. epilepsy Plan - cont with bicarb - monitor renal function - monitor lactic acid - oncology input appreciated - will need to discuss GOC - discussed with ICU team - cont abx - renal dose meds Dr Valdez
--- NOTE | 2018-07-17 18:32 | PN ---
Progress Note (short form) - Note Progress Note: NEUROLOGY FOLLOW-UP: Events and updated neuroimaging reviewed. Case discussed with RN and patient's mother at the bedside. For family meeting with staff tonight. Pt is "in and out" according to the , but generally less and less responsive since the neuro consult on admission. MRI and Repeat CT reviewed: No evidence of brain mets, hydrocephalus or carcinomatous meningitis. EXAM: Unresponsive to name. Semipurposeful mov'ts to sternal pressure. Neck supple. Neg Kernig's. Flacid weekness. IMP: Non-focal exam sig for Progressive Toxic-metabolic encephalopathy Etiology is rapidly progressive Hepatic failure due to metastatic tumor. SUGGEST: Prognosis grave. Family will be made aware by ICU staff at family meeting tonight. Thank you very much, Enrique Novak MD
[2018-07-18] MEDS: SODIUM BICARBONATE 8.4% - 100 MEQ in DEXTROSE 5%-WATER - 1,000 ML IV SCH ×2 (02:39→10:17)
[2018-07-18] MEDS: PIPERACILLIN/TAZOB 2.25 GM 2.25 GM in DEXTROSE 5%-WATER - 50 ML IVPB SCH ×2 (02:40→08:10)
[2018-07-18] MEDS: HEPARIN NA (PORCINE) 5,000 UNITS/ML 1ML VIAL SQ SCH ×2 (06:01→13:21)
[2018-07-18 06:42] LABS: BASO % 0.5 % (0-2.0); EOS % 0.2 % (0-4.5); HEMATOCRIT 25.9 % (35.4-49); HEMOGLOBIN 7.8 GM/dL (11.7-16.9); MCH 23.8 pg (25.7-33.7); MCHC 30.3 g/dl (32.0-35.9); MEAN CELL VOLUME 78.6 fl (80-96); MEAN PLT VOLUME 10.5 fl (7.5-11.1); NEUT % 65.3 % (42.8-82.8); PLATELET COUNT 163 K/MM3 (134-434); RBC 3.29 M/mm3 (4.00-5.60); RDW 17.9 % (11.9-15.9); WHITE BLOOD COUNT 23.7 K/mm3 (4.0-10.0)
[2018-07-18 06:45] LABS: INR 2.64 (0.83-1.09); PROTHROMBIN TIME (PATIENT) 29.8 SEC (9.7-13.0)
[2018-07-18] MEDS: AMINO ACIDS/PROTEIN HYDROLYS 30 ML LIQUID.PKT PO SCH (07:17)
[2018-07-18] MEDS ORDERED: PIPERACILLIN/TAZOBACTAM 2.25 GM VIAL IVPB ONE ×2 (07:38→13:10)
[2018-07-18] MEDS ORDERED: DEXTROSE 5%-WATER - 50 ML IVPB ONE ×2 (07:38→13:10)
[2018-07-18 08:03] LABS: ALBUMIN 1.3 g/dl (3.4-5.0); ALK PHOS 377 U/L (45-117); ANION GAP 26 MMOL/L (8-16); BILIRUBIN,TOTAL 9.2 mg/dL (0.2-1); BLOOD UREA NITROGEN 81 mg/dL (7-18); CALCIUM 8.7 mg/dL (8.5-10.1); CHLORIDE 100 mmol/L (98-107); CO2 15 mmol/L (21-32); CREATININE 3.2 mg/dL (0.55-1.3); MAGNESIUM 2.1 mg/dL (1.8-2.4); PHOSPHOROUS 5.8 mg/dL (2.5-4.9); SGOT/AST 1384 U/L (15-37); SGPT/ALT 557 U/L (13-61); SODIUM 141 mmol/L (136-145); TOT PROT 4.8 g/dl (6.4-8.2)
[2018-07-18 08:06] LABS: GLUCOSE,RANDOM 42 mg/dL (74-106)
[2018-07-18] MEDS ORDERED: DEXTROSE 50%-WATER - 25 GM/50 ML VIAL IVPUSH ONE (08:08)
[2018-07-18] MEDS ORDERED: DEXTROSE 50%-WATER 25 GM/50 ML DISP.SYRIN ONE (08:17)
[2018-07-18] MEDS: MORPHINE SULFATE 2 MG/ML VIAL IVPUSH PRN (08:36)
[2018-07-18] MEDS ORDERED: MORPHINE SULFATE 2 MG/ML VIAL IVPUSH PRN (08:57)
--- NOTE | 2018-07-18 09:59 | PN ---
Progress Note, Physician - Current Medication List Current Medications: Active Medications Acetaminophen (Tylenol -) 650 mg PO Q6H PRN PRN Reason: PAIN 6-10 Albuterol/Ipratropium (Duoneb -) 1 amp NEB Q4H PRN PRN Reason: SHORTNESS OF BREATH Last Admin: 07/16/18 08:05 Dose: 1 amp Amino Acids (Prosource No Carb Liquid Pkt) 30 ml PO BID@0800,1730 [facility] Last Admin: 07/18/18 07:17 Dose: Not Given Docusate Sodium (Colace -) 100 mg PO DAILY [facility] Last Admin: 07/17/18 09:36 Dose: Not Given Heparin Sodium (Porcine) (Heparin -) 5,000 unit SQ TID [facility] Last Admin: 07/18/18 06:01 Dose: 5,000 unit Piperacillin Sod/Tazobactam (Sod 2.25 gm/ Dextrose) 50 mls @ 100 mls/hr IVPB Q6H-IV [facility]; Protocol Last Admin: 07/18/18 08:10 Dose: 100 mls/hr Sodium Bicarbonate 100 meq/ (Dextrose) 1,100 mls @ 150 mls/hr IV Q7H [facility] Last Admin: 07/18/18 02:39 Dose: 150 mls/hr Lactulose (Cephulac (Oral Use)) 20 gm PO BID [facility] Last Admin: 07/17/18 22:44 Dose: Not Given Levetiracetam (Keppra Injection -) 500 mg IVPB BID [facility] Last Admin: 07/17/18 22:01 Dose: 500 mg Morphine Sulfate (Morphine Sulfate) 2 mg IVPUSH Q3H PRN PRN Reason: PAIN LEVEL 6-10 Oxycodone HCl (Roxicodone -) 10 mg PO Q6H PRN PRN Reason: PAIN 6-10 Last Admin: 07/13/18 21:57 Dose: 10 mg Pantoprazole Sodium (Protonix Iv) 40 mg IVPUSH DAILY [facility] Last Admin: 07/17/18 09:38 Dose: 40 mg Prochlorperazine Maleate (Compazine -) 10 mg PO DAILY [facility] Last Admin: 07/17/18 09:37 Dose: Not Given - Objective Vital Signs: Vital Signs Temperature 98.2 F 07/18/18 06:00 Pulse Rate 114 H 07/18/18 08:00 Respiratory Rate 42 H 07/18/18 08:00 Blood Pressure 99/69 07/18/18 08:00 O2 Sat by Pulse Oximetry (%) 96 07/17/18 20:50 Cardiovascular: Yes: S1, S2 Respiratory: Yes: Diminished, On Nasal O2 Gastrointestinal: Yes: Normal Bowel Sounds, Soft Neurological: Yes: Confusion, Weakness Labs: CBC, BMP 07/18/18 05:30 07/18/18 05:30 INR, PTT INR 2.64 (0.83-1.09) H 07/18/18 05:30 Assessment/Plan - Problems (1) Change in mental status Assessment/Plan: ct head stat r/o bleed given elevated INR transfered to icu needs respiratory status monitoring- s/p rapid response abg repeated again ph 7.32 co2 20.0, 0xygen 106 on 3 litres of oxgen -metabolic acidosis aware of the patient condition- full code- wants everything done brain MRI was done on 07/13no bleed no infarct ivf fluids on iv zosyn Microbiology 07/10/18 04:00 Urine - Urine - Catheterized Urine Culture - Preliminary Non Lactose Fermenting Gnb Group D Strep Or Entero Coccus appreciate neurology note ammonia level noted on thiamine Microbiology 07/10/18 04:00 Urine - Urine - Catheterized Urine Culture - Final Escherichia Coli Enterococcus Faecalis Code(s): R41.82 - ALTERED MENTAL STATUS, UNSPECIFIED (2) Metastasis from bladder cancer Assessment/Plan: lung mets and liver mets oncology on board MRI brain noted no infarct lesions or bleed elevated INR,LFT due to liver failure wants everything done full code-dr daigle spoke to her Code(s): C79.9 - SECONDARY MALIGNANT NEOPLASM OF UNSPECIFIED SITE; C67.9 - MALIGNANT NEOPLASM OF BLADDER, UNSPECIFIED (3) Acute renal failure Assessment/Plan: ivf hydration d5/1/2 NS with bicarb renal function worse bicarbonate renal consult appreciated hyperkalemia improved Code(s): N17.9 - ACUTE KIDNEY FAILURE, UNSPECIFIED (4) Elevated LFTs Assessment/Plan: secondary to liver mets- oncology follow up wants everything done Code(s): R94.5 - ABNORMAL RESULTS OF LIVER FUNCTION STUDIES (5) Hyperkalemia Assessment/Plan: potassium improved Code(s): E87.5 - HYPERKALEMIA (6) Lethargy Assessment/Plan: repeat ct head noted stat labs ammonia and lactic acid brain MRI no mets no bleed icu for respiratory status monitoring full code discuss with wants everything done neurology follow up noted broad spectrum abx for UTI Microbiology 07/10/18 04:00 Urine - Urine - Catheterized Urine Culture - Final Escherichia Coli Enterococcus Faecalis already on lactulose Code(s): R53.83 - OTHER FATIGUE (7) Leukocytosis Assessment/Plan: elevated wbc on iv abx Code(s): D72.829 - ELEVATED WHITE BLOOD CELL COUNT, UNSPECIFIED
[2018-07-18] MEDS: LACTULOSE 20 GM/30 ML UDC (FOR ORAL USE ONLY) PO SCH (10:07)
[2018-07-18] MEDS: PROCHLORPERAZINE MALEATE 5 MG TABLET PO SCH (10:07)
[2018-07-18] MEDS: PANTOPRAZOLE SODIUM 40 MG VIAL IVPUSH SCH (10:07)
[2018-07-18] MEDS: DOCUSATE SODIUM 100 MG CAPSULE (FP) PO SCH (10:07)
[2018-07-18] MEDS: levETIRAcetam 500 MG/5 ML INJECTION VIAL IVPB SCH ×2 (10:08→22:49)
[2018-07-18] MEDS ORDERED: morphine SULFATE 4 MG/ML VIAL IVPUSH PRN (10:53)
[2018-07-18] MEDS ORDERED: SODIUM CHLORIDE 0.9% 500 ML INFUS.BAG IV ONE (11:17)
[2018-07-18] MEDS ORDERED: SODIUM BICARBONATE 8.4% - 150 MEQ in DEXTROSE 5%-WATER - 1,000 ML IV SCH (11:18)
[2018-07-18] MEDS ORDERED: PROCHLORPERAZINE INJECTION 10 MG/2 ML VIAL IVPB PRN (11:19)
[2018-07-18 11:40] LABS: ARTERIAL BLD GAS O2 SATURATION 93.3 % (90-98.9); ARTERIAL BLOOD GAS BASE EXCESS -7.4 meq/l (-2-2); ARTERIAL BLOOD GAS PCO2 26.2 mmHg (35-45); ARTERIAL BLOOD GAS PO2 73.6 mmHg (80-100); ARTERIAL BLOOD GAS pH 7.41 (7.35-7.45)
[2018-07-18 11:44] LABS: ALLENS TEST POSITIVE
[2018-07-18 12:02] LABS: ANISOCYTOSIS 1+; MACROCYTOSIS 0; TARGET CELLS 2+
[2018-07-18 12:22] LABS: PLATELET ESTIMATE ADEQUATE
--- NOTE | 2018-07-18 12:54 | PN ---
Progress Note, Physician History of Present Illness: Pt seen and examined at bedside. He is lethargic and appears uncomfortable. - Current Medication List Current Medications: Active Medications Acetaminophen (Tylenol -) 650 mg PO Q6H PRN PRN Reason: PAIN 6-10 Albuterol/Ipratropium (Duoneb -) 1 amp NEB Q4H PRN PRN Reason: SHORTNESS OF BREATH Last Admin: 07/16/18 08:05 Dose: 1 amp Amino Acids (Prosource No Carb Liquid Pkt) 30 ml PO BID@0800,1730 [facility] Last Admin: 07/18/18 07:17 Dose: Not Given Docusate Sodium (Colace -) 100 mg PO DAILY [facility] Last Admin: 07/18/18 10:07 Dose: Not Given Heparin Sodium (Porcine) (Heparin -) 5,000 unit SQ TID [facility] Last Admin: 07/18/18 06:01 Dose: 5,000 unit Piperacillin Sod/Tazobactam (Sod 2.25 gm/ Dextrose) 50 mls @ 100 mls/hr IVPB Q6H-IV [facility]; Protocol Last Admin: 07/18/18 08:10 Dose: 100 mls/hr Sodium Bicarbonate 150 meq/ (Dextrose) 1,150 mls @ 150 mls/hr IV Q7H [facility] Lactulose (Cephulac (Oral Use)) 20 gm PO BID [facility] Last Admin: 07/18/18 10:07 Dose: Not Given Levetiracetam (Keppra Injection -) 500 mg IVPB BID [facility] Last Admin: 07/18/18 10:08 Dose: 500 mg Morphine Sulfate (Morphine Sulfate) 4 mg IVPUSH Q3H PRN PRN Reason: PAIN LEVEL 6-10 Oxycodone HCl (Roxicodone -) 10 mg PO Q6H PRN PRN Reason: PAIN 6-10 Last Admin: 07/13/18 21:57 Dose: 10 mg Pantoprazole Sodium (Protonix Iv) 40 mg IVPUSH DAILY [facility] Last Admin: 07/18/18 10:07 Dose: 40 mg Prochlorperazine Edisylate (Compazine Injection -) 5 mg IVPB Q4H PRN PRN Reason: NAUSEA AND/OR VOMITING - Objective Vital Signs: Vital Signs Temperature 98.3 F 07/18/18 10:24 Pulse Rate 112 H 07/18/18 12:07 Respiratory Rate 44 H 07/18/18 12:07 Blood Pressure 85/57 L 07/18/18 12:07 O2 Sat by Pulse Oximetry (%) 96 07/17/18 20:50 Constitutional: Yes: Moderate Distress Eyes: Yes: Conjunctiva Clear HENT: Yes: Atraumatic Cardiovascular: Yes: S1, S2 Respiratory: Yes: CTA Bilaterally Gastrointestinal: Yes: Distention Genitourinary: Yes: Other (ileal conduit) Musculoskeletal: Yes: Muscle Weakness Edema: LLE: Trace, RLE: Trace Neurological: Yes: Lethargy Labs: CBC, BMP 07/18/18 05:30 07/18/18 05:30 INR, PTT INR 2.64 (0.83-1.09) H 07/18/18 05:30 - ....Imaging Chest X-ray: Report Reviewed Problem List - Problems (1) Acute renal failure Code(s): N17.9 - ACUTE KIDNEY FAILURE, UNSPECIFIED (2) Change in mental status Code(s): R41.82 - ALTERED MENTAL STATUS, UNSPECIFIED Qualifiers: Altered mental status type: unspecified Qualified Code(s): R41.82 - Altered mental status, unspecified (3) Hyperkalemia Code(s): E87.5 - HYPERKALEMIA (4) Hypotension Code(s): I95.9 - HYPOTENSION, UNSPECIFIED (5) Lethargy Code(s): R53.83 - OTHER FATIGUE Assessment/Plan Current Medications Generic Name Dose Route Start Last Admin Trade Name Freq PRN Reason Stop Dose Admin Acetaminophen 650 mg 07/11/18 15:40 Tylenol - PO Q6H PRN PAIN 6-10 Albuterol/Ipratropium 1 amp 07/15/18 12:40 07/16/18 08:05 Duoneb - NEB 1 amp Q4H PRN Administration SHORTNESS OF BREATH Amino Acids 30 ml 07/15/18 17:30 07/18/18 07:17 Prosource No Carb Liquid Pkt PO Not Given BID@0800,1730 [facility] Docusate Sodium 100 mg 07/12/18 10:00 07/18/18 10:07 Colace - PO Not Given DAILY [facility] Heparin Sodium (Porcine) 5,000 unit 07/11/18 22:00 07/18/18 06:01 Heparin - SQ 5,000 unit TID [facility] Administration Piperacillin Sod/Tazobactam 50 mls @ 100 mls/hr 07/11/18 21:00 07/18/18 08:10 Sod 2.25 gm/ Dextrose IVPB 100 mls/hr Q6H-IV [facility] Administration Protocol Sodium Bicarbonate 150 meq/ 1,150 mls @ 150 mls/hr 07/18/18 11:18 Dextrose IV Q7H [facility] Lactulose 20 gm 07/11/18 22:00 07/18/18 10:07 Cephulac (Oral Use) PO Not Given BID [facility] Levetiracetam 500 mg 07/16/18 14:15 07/18/18 10:08 Keppra Injection - IVPB 500 mg BID [facility] Administration Morphine Sulfate 4 mg 07/18/18 10:53 Morphine Sulfate IVPUSH Q3H PRN PAIN LEVEL 6-10 Oxycodone HCl 10 mg 07/11/18 15:40 07/13/18 21:57 Roxicodone - PO 10 mg Q6H PRN Administration PAIN 6-10 Pantoprazole Sodium 40 mg 07/12/18 10:00 07/18/18 10:07 Protonix Iv IVPUSH 40 mg DAILY [facility] Administration Prochlorperazine Edisylate 5 mg 07/18/18 11:19 Compazine Injection - IVPB Q4H PRN NAUSEA AND/OR VOMITING Impression 1. DIVINA 2. CKD 3. bladder cancer 4. hx left nephrectomy 5. hypotension 6. altered mental status 7. metastatic disease 8. hyperkalemia improving 9. hx of htn although pt now hypotensive 10. hypotension 11. anemia 12. sepsis 13. epilepsy Plan - cont with bicarb drip - monitor renal function - agree with bolus for hypotension - will need to discuss GOC with family - discussed with ICU team - check abg - renal dose meds Dr Valdez
--- NOTE | 2018-07-18 13:10 | PN ---
Teaching Attending Note Name of Resident: Vic Lozano ATTENDING PHYSICIAN STATEMENT I saw and evaluated the patient. I reviewed the resident's note and discussed the case with the resident. I agree with the resident's findings and plan as documented. SUBJECTIVE: Pt seen and examined in the ICU. Lethargic, tachypneic. Remains on bicarb gtt. Hypotensive this AM. OBJECTIVE: Vital Signs Period Temp Pulse Resp BP Sys/Hoffman Pulse Ox Last 24 Hr 97.4 F-99.6 F 111-122 26-44 84-133/55-88 96 Intake & Output 07/15/18 07/16/18 07/17/18 07/18/18 23:59 23:59 23:59 23:59 Intake Total 3160 2450 3200 1600 Output Total 700 200 750 300 Balance 2460 2250 2450 1300 Weight 91.626 kg Gen: tachypneic, lethargic Heart: tachycardic, regular Lung: scattered rhonchi Abd: soft, nontender Ext: no edema CBC, BMP 07/18/18 05:30 07/18/18 05:30 Active Medications Acetaminophen (Tylenol -) 650 mg PO Q6H PRN PRN Reason: PAIN 6-10 Albuterol/Ipratropium (Duoneb -) 1 amp NEB Q4H PRN PRN Reason: SHORTNESS OF BREATH Last Admin: 07/16/18 08:05 Dose: 1 amp Amino Acids (Prosource No Carb Liquid Pkt) 30 ml PO BID@0800,1730 [facility] Last Admin: 07/18/18 07:17 Dose: Not Given Docusate Sodium (Colace -) 100 mg PO DAILY [facility] Last Admin: 07/18/18 10:07 Dose: Not Given Heparin Sodium (Porcine) (Heparin -) 5,000 unit SQ TID [facility] Last Admin: 07/18/18 06:01 Dose: 5,000 unit Piperacillin Sod/Tazobactam (Sod 2.25 gm/ Dextrose) 50 mls @ 100 mls/hr IVPB Q6H-IV [facility]; Protocol Last Admin: 07/18/18 08:10 Dose: 100 mls/hr Sodium Bicarbonate 150 meq/ (Dextrose) 1,150 mls @ 150 mls/hr IV Q7H [facility] Lactulose (Cephulac (Oral Use)) 20 gm PO BID [facility] Last Admin: 07/18/18 10:07 Dose: Not Given Levetiracetam (Keppra Injection -) 500 mg IVPB BID [facility] Last Admin: 07/18/18 10:08 Dose: 500 mg Morphine Sulfate (Morphine Sulfate) 4 mg IVPUSH Q3H PRN PRN Reason: PAIN LEVEL 6-10 Oxycodone HCl (Roxicodone -) 10 mg PO Q6H PRN PRN Reason: PAIN 6-10 Last Admin: 07/13/18 21:57 Dose: 10 mg Pantoprazole Sodium (Protonix Iv) 40 mg IVPUSH DAILY [facility] Last Admin: 07/18/18 10:07 Dose: 40 mg Prochlorperazine Edisylate (Compazine Injection -) 5 mg IVPB Q4H PRN PRN Reason: NAUSEA AND/OR VOMITING ASSESSMENT AND PLAN: Altered Mental Status UTI Severe Sepsis Acute Kidney Injury Metabolic Acidosis Metastatic Bladder Ca Elevated LFTs Anemia Seizure Disorder h/o HTN - continue bicarb gtt - continue antibiotics - monitor urine output, creatinine - trend LFTs - poor overall prognosis, palliative care would be appropriate at this time - morphine for comfort
[2018-07-18] MEDS ORDERED: MORPHINE SULFATE 2 MG/ML VIAL IVPUSH ONE (14:13)
[2018-07-18] MEDS ORDERED: morphine CARPU-JECT 8 MG/1 ML DISP.SYRIN IVPUSH ONE (14:13)
[2018-07-18] MEDS ORDERED: morphine SULFATE 4 MG/ML VIAL ONE (14:20)
[2018-07-18] MEDS: MORPHINE 100 MG in SODIUM CHLORIDE 98 ML IVPB SCH (14:37)
--- NOTE | 2018-07-18 14:45 | PN ---
Physical Exam: SUBJECTIVE: Patient seen and examined at bedside. Obtunded, moaning. OBJECTIVE: Vital Signs Period Temp Pulse Resp BP Sys/Hoffman Pulse Ox Last 24 Hr 97.4 F-98.3 F 111-122 30-46 84-133/55-88 96-96 GENERAL: Awake, obtunded, no response to verbal stimuli, eyes do not track, withdraws from vigorous sternal rub HEAD: NC/AT EYES: PERRLA LUNGS: Anterior greenberg without adventitious sounds when patient breathes normally, otherwise unable to assess HEART: Tachycardic, S1S2, +PVCs, no m/r/g appreciated ABDOMINAL: soft, grimaces to deep palpation throughout, tympanitic, fluid-filled , ileal conduit in place for evacuation EXTREMITIES: 2+ radial and dorsalis pedis pulses b/l. No lower extremity edema b /l NEUROLOGIC: cannot follow commands, withdraws to plantar stimulation, otherwise no movement of extremities Laboratory Results - last 24 hr 07/18/18 07/18/18 07/18/18 05:30 05:30 05:30 WBC 23.7 H RBC 3.29 L Hgb 7.8 L Hct 25.9 L MCV 78.6 L MCH 23.8 L MCHC 30.3 L RDW 17.9 H Plt Count 163 MPV 10.5 Absolute Neuts (auto) 15.5 H Neutrophils % 65.3 Neutrophils % (Manual) 70.7 Band Neutrophils % 0.0 Lymphocytes % 12.0 D Lymphocytes % (Manual) 13.1 Monocytes % 22.0 H Monocytes % (Manual) 16 H Eosinophils % 0.2 Eosinophils % (Manual) 0.0 D Basophils % 0.5 Basophils % (Manual) 0.0 Myelocytes % (Man) 0 Promyelocytes % (Man) 0 Blast Cells % (Manual) 0 Nucleated RBC % 1 H Metamyelocytes 0 Hypochromia 1+ Platelet Estimate Adequate Polychromasia 1+ Poikilocytosis 3+ Anisocytosis 1+ Microcytosis 1+ Macrocytosis 0 Target Cells 2+ PT with INR 29.80 H INR 2.64 H Puncture Site ABG pH ABG pCO2 at Pt Temp ABG pO2 at Pt Temp ABG HCO3 ABG O2 Sat (Measured) ABG O2 Content ABG Base Excess Rishi Test O2 Delivery Device Oxygen Flow Rate Mechanical Rate PEEP Sodium 141 Potassium 4.0 Chloride 100 Carbon Dioxide 15 L Anion Gap 26 H BUN 81 H Creatinine 3.2 H Creat Clearance w eGFR 20.12 Random Glucose 42 L* Lactic Acid Calcium 8.7 Phosphorus 5.8 H Magnesium 2.1 Total Bilirubin 9.2 H AST 1384 H ALT 557 H Alkaline Phosphatase 377 H Total Protein 4.8 L Albumin 1.3 L 07/18/18 07/18/18 05:30 11:15 WBC RBC Hgb Hct MCV MCH MCHC RDW Plt Count MPV Absolute Neuts (auto) Neutrophils % Neutrophils % (Manual) Band Neutrophils % Lymphocytes % Lymphocytes % (Manual) Monocytes % Monocytes % (Manual) Eosinophils % Eosinophils % (Manual) Basophils % Basophils % (Manual) Myelocytes % (Man) Promyelocytes % (Man) Blast Cells % (Manual) Nucleated RBC % Metamyelocytes Hypochromia Platelet Estimate Polychromasia Poikilocytosis Anisocytosis Microcytosis Macrocytosis Target Cells PT with INR INR Puncture Site Left radial ABG pH 7.41 ABG pCO2 at Pt Temp 26.2 L D ABG pO2 at Pt Temp 73.6 L D ABG HCO3 16.1 L ABG O2 Sat (Measured) 93.3 ABG O2 Content 9.6 L* ABG Base Excess -7.4 L Rishi Test Positive O2 Delivery Device Nasal cannula Oxygen Flow Rate 2l Mechanical Rate No PEEP 0.0 Sodium Potassium Chloride Carbon Dioxide Anion Gap BUN Creatinine Creat Clearance w eGFR Random Glucose Lactic Acid 14.6 H* Calcium Phosphorus Magnesium Total Bilirubin AST ALT Alkaline Phosphatase Total Protein Albumin Active Medications Generic Name Dose Route Start Last Admin Trade Name Freq PRN Reason Stop Dose Admin Morphine Sulfate 100 mg/ 100 mls @ 1 mls/hr 07/18/18 14:15 Sodium Chloride IVPB TITR [facility] Protocol 1 MG/HR Levetiracetam 500 mg 07/16/18 14:15 07/18/18 10:08 Keppra Injection - IVPB 500 mg BID [facility] Administration Prochlorperazine Edisylate 5 mg 07/18/18 11:19 Compazine Injection - IVPB Q4H PRN NAUSEA AND/OR VOMITING ASSESSMENT/PLAN: 57 y/o M w/ PMHx bladder Ca s/p cystectomy/L nephrectomy 2 mos [employer], sz disorder , HTN, opioid/cocaine use (on methadone), returned to ICU 2/2 metabolic/lactic acidosis, AMS, tachypnea, now in fulminant liver failure #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 -now undergoing rapidly progressing liver failure 2/2 numerous mets -family discussion held, comfort care measures agreed to, now DNR/DNI -morphine drip, keppra, compazine for comfort, no other standing orders, further comfort measures only PRN Visit type - Emergency Visit Emergency Visit: No - New Patient This patient is new to me today: No - Critical Care Critical Care patient: Yes Total Critical Care Time (in minutes): 40 Critical Care Statement: The care of this patient involved high complexity decision making to prevent further life threatening deterioration of the patient 's condition and/or to evaluate & treat vital organ system(s) failure or risk of failure.
[2018-07-18 15:49] VITALS: BMI 28.1
[2018-07-18 23:11] VITALS: TEMP 97.8
[2018-07-19] MEDS: MORPHINE 100 MG in SODIUM CHLORIDE 98 ML IVPB SCH (03:34)
[2018-07-19 04:45] VITALS: BP 88/40; PULSE 88
== END 2018-07-19 04:25 | disposition expired | DRG 281 ==
LOC: JER 02:08 → JERBED 10:19 → JICU 20:49 → J5S 07-11 15:30 → JICU 07-16 13:58
PROVIDERS: ADMIT Family Medicine; ATTEND Family Medicine
DX: C78.7 Secondary malignant neoplasm of liver and intrahepatic bile duct (principal); C67.9 Malignant neoplasm of bladder, unspecified; R41.82 Altered mental status, unspecified; N17.9 Acute kidney failure, unspecified; R94.5 Abnormal results of liver function studies; E87.5 Hyperkalemia; R53.83 Other fatigue; E87.2 Acidosis; N39.0 Urinary tract infection, site not specified; A41.9 Sepsis, unspecified organism; D64.9 Anemia, unspecified; G40.909 Epilepsy, unspecified, not intractable, without status epilepticus; I95.9 Hypotension, unspecified; N18.9 Chronic kidney disease, unspecified; B96.20 Unspecified Escherichia coli [E. coli] as the cause of diseases classified elsewhere; B95.2 Enterococcus as the cause of diseases classified elsewhere; C78.00 Secondary malignant neoplasm of unspecified lung; D72.829 Elevated white blood cell count, unspecified; G92 Toxic encephalopathy; K72.90 Hepatic failure, unspecified without coma; D68.9 Coagulation defect, unspecified; R11.2 Nausea with vomiting, unspecified; I12.9 Hypertensive chronic kidney disease with stage 1 through stage 4 chronic kidney disease, or unspecified chronic kidney disease; D69.6 Thrombocytopenia, unspecified; R91.8 Other nonspecific abnormal finding of lung field; E83.52 Hypercalcemia; R74.0 Nonspecific elevation of levels of transaminase and lactic acid dehydrogenase [LDH]; K80.20 Calculus of gallbladder without cholecystitis without obstruction; E87.0 Hyperosmolality and hypernatremia; R00.0 Tachycardia, unspecified; R40.3 Persistent vegetative state
CPT/HCPCS: 36415; 36600; 70450-TC; 70551-TC; 71045-TC-FY; 71250-TC; 74176-TC; 74181-TC; 76700-TC; 76775-TC; 80048; 80053; 80307; 81003; 81015; 82140; 82150; 82248; 82436; 82550; 82553; 82570; 82607; 82803; 82962; 83605; 83690; 83735; 83880; 84100; 84133; 84300; 84443; 84484; 85025; 85610; 85730; 87040; 87086; 87186; 93005; 93010; 94640; 99285-25; G0480; J1644; J7030; J7620